=== PATIENT | female | born 1940 | race Caucasian/White ===

== ENCOUNTER 2019-09-28 12:10 | Inpatient (IN) | payer OTHER, BC ==
--- NOTE | 2019-09-28 12:30 | PDOC ---
History of Present Illness - General Chief Complaint: Shortness of Breath Stated Complaint: UNABLE TO CLEAR SECRTIONS Time Seen by Provider: 09/28/19 12:22 History Source: Care Provider, EMS Exam Limitations: Clinical Condition, Dementia - History of Present Illness Initial Comments: 09/28/19 12:29 HPI 79-year-old female with history as of Parkinson's disease and dementia, hypertension, hyperlipidemia, asthma, GERD, constipation, GI bleed, hiatal hernia, PUD, colon polyps, renal cysts, right breast cancer status post right- sided mastectomy, anxiety and depression, osteoarthritis, autoimmune thyroiditis and thyroid nodules presenting with acute respiratory distress 2/2 aspiration.. Patient [facility] with a productive cough, choking and aspiration of oatmeal from this morning. She is also being treated with Augmentin over the past 1 week for URI. history limited due to dementia. Allergies: None Past Medical History/PSH: as above Social history: [facility] Meds: as documented in EMR PMD: Dr Howard Review of systems limited 2/2 dementia, poor historian 09/28/19 15:41 09/28/19 17:39 Past History - Past Medical History Allergies/Adverse Reactions: Allergies Allergy/AdvReac Type Severity Reaction Status Date / Time No Known Allergies Allergy Verified 12/28/17 10:06 Home Medications: Ambulatory Orders Alprazolam 0.5 mg PO BID 07/14/16 Calcium Carbonate/Vitamin D3 [Calcium 500 + Vit D Caplet] 1 each PO BID Cyanocobalamin (Vitamin B-12) [Vitamin B12] 2,500 mcg PO WEEKLY 07/14/16 Pantoprazole Sodium 40 mg PO DAILY 07/14/16 Carbidopa/Levodopa *Cr* 25/100 [Sinemet *Cr* 25/100 -] 2 combo PO TID@0700,1200, 1700 tablet.er 07/15/16 Lipase/Protease/Amylase [Wolfgang Morfin 6,000 Units Capsule] 1 cap PO TIDCM capsule. 07/15/16 Mirtazapine [Remeron -] 30 mg PO HS@2000 tablet 07/15/16 Ascorbic Acid [Vitamin C -] 500 mg PO BID tablet 01/01/18 Cholecalciferol (Vitamin D3) [Vitamin D3 -] 2,000 unit PO DAILY tab 01/01/18 Multivitamins [Multivit ([facility] Formulary)] 1 tab PO DAILY tab 01/01/18 Paroxetine HCl [Paxil -] 60 mg PO DAILY tablet 01/01/18 Petrolatum - White [Vaseline -] 1 applic TP BID applic 01/01/18 Polyethylene Glycol 3350 [Miralax 119 gm Btl -] 17 gm PO DAILY bottle 01/01/18 Quetiapine Fumarate [Seroquel -] 25 mg PO BID tablet 01/01/18 Anemia: No Asthma: No Cancer: Yes (RIGHT BREAST) Cardiac Disorders: No CVA: No COPD: No CHF: No Dementia: Yes Diabetes: No GI Disorders: Yes (REFLUX ESOPHAGITIS, CONSTIPATION, COLONIC PLYP) Disorders: Yes (renal cysts) HTN: Yes Hypercholesterolemia: Yes Kidney Stones: Yes Liver Disease: No Psychiatric Problems: Yes (, PSYCHOTIC DISORDER, LETHARGY) Seizures: No Thyroid Disease: No - Surgical History Abdominal Surgery: Yes Appendectomy: No Cardiac Surgery: No Cholecystectomy: No Lung Surgery: No Neurologic Surgery: No Orthopedic Surgery: No - Psycho Social/Smoking Cessation Hx Smoking History: Former smoker Have you smoked in the past 12 months: No Number of Cigarettes Smoked Daily: 10 If you are a former smoker, when did you quit?: May 2013 Hx Alcohol Use: No Drug/Substance Use Hx: No Substance Use Type: None Hx Substance Use Treatment: No Review of Systems - Review of Systems Able to Perform ROS?: No (Dementia, clinical) *Physical Exam - Physical Exam 09/28/19 15:41 Physical exam General: moderate-severe respiratory distress, demented, thin and frail appearing HEENT: NCAT, PERRL, EOMI, clear conjunctiva, anicteric, dry oropharynx Neck: neck supple, FROM Resp: severe respiratory distress, +bilateral inspiratory and expiratory rhonchi , tachypneic. CVS: +tachycardic, no murmurs, 2+ peripheral pulses throughout, no peripheral edema Abdomen: soft, NTND, no rebound or guarding. Back: nontender, normal inspection and ROM MSK: no edema, GENTILE x4, ROM intact. No clubbing or cyanosis. normal bulk and tone. Extremities: no calf tenderness Neuro: demented, min arousable to stimuli Skin: warm and well perfused, cap refill <2 sec, normal color, no rash or skin discoloration. Procedures - Intubation Time of Intubation: 13:00 Intubation Method: orotracheal Blade used: Mac Tube Size (Fr): 7.5 Medications: Etomidate, Rocuronium Tube position @ lip (cm): 22 Tube position confirmed by: Direct visualization, CO2 detector, Chest x-ray, Breath sounds Breath Sounds after Intubation: equal Intubation Complications: no complications, O2 saturation decreased Post Intubation Xray: Yes Progress/Xray Impression: BMV, NRB, SpO2 best at 75% - RSI done, intubation successful, secretions Heart Score/ECG Review #1 ECG reviewed & interpreted by me at: 12:25 General ECG Interpretation: Sinus Rhythm, Normal Intervals Compared to previous ECG there are: Changes noted 09/28/19 12:30 EKG sinus tachycardia at 135 bpm, no interval abnormalities, narrow QRS, ST and T wave segments and morphology normal. Nonspecific T wave abnormalities rate related. left axis deviation ED Treatment Course - LABORATORY CBC & Chemistry Diagram: 09/28/19 12:45 09/28/19 12:45 - RADIOLOGY Radiology Studies Ordered: Category Date Time Status CHEST X-RAY PORTABLE* [RAD] Stat Radiology 09/28/19 12:24 Ordered Radiograph Interpretation: 09/28/19 15:40 No evidence of pneumothorax or large pleural effusion, multifocal pneumonia on right lung field is noted. ET tube in place above the freddie. no ptx or pleural effusion Medical Decision Making - Critical Care Time Total Critical Care Time (minutes): 60 (acute respiratory failure) Critical Care Statement: The care of this patient involved high complexity decision making to prevent further life threatening deterioration of the patient 's condition and/or to evaluate & treat vital organ system(s) failure or risk of failure. - Medical Decision Making 09/28/19 13:26 Vital Signs Temp Pulse Resp BP Pulse Ox 99.6 F 133 H 29 H 189/80 H 77 L 09/28/19 12:12 09/28/19 12:12 09/28/19 12:12 09/28/19 12:12 09/28/19 12:12 79 YOF presenting with severe acute respiratory distress hypoxic down to 70s on NRB demented, not protecting airway RSI done, copious secretions, suctioned. not candidate for bipap due to AMS and aspiration. hemodynamics optimized, +tachy and hypertensive. spoke with HCP/POA, Martha Melgar- at bedside, ok with emergent procedure, intubation, mech ventilation for respiratory support/airway protection and acute respiratory failure, no full or official documentation of paperwork/ advanced directives available, so will proceed as full code given emergency circumstances. instructions to obtain paperwork for proper documentation and discussion on goals of care/management. intubated with mac 3 blade, direct laryngoscopy, successful 7.5 ETT at 22 cm at the lip vent settings as documented propofol gtt for sedation, hemodynamics allows as pt is hypertensive/tachy from the stimuli. VANC/zosyn for aspiration pneumonia with multifocal opacities/pneumonia on CXR, failed outpatient amoxicillin CXR with right sided pulmonary infiltrates and opacities right>left, ?ARDS; ETT above freddie labs and lytes with +leukocytosis >30K, sputum and blood cultures, infectious workup appropriate and IV abx as documented. communicated with PMD Dr WHITE: Dr Howard, who has come to bedside to admit and eval patient DNR signed in conjunction with PMD with expectations, quality of life, decline/ loss of function and critical condition; no heroic measures, central lines, invasive measures, CPR/shocks, or other aggressive measures. ICU admission to Dr Conde spoke with Dr Oviedo, resident on floor. transfer to ICU bed at [facility] for acute respiratory failure 2/2 aspiration pna, hypoxia. 09/28/19 15:41 09/28/19 17:40 Discharge - Discharge Information Problems reviewed: Yes Clinical Impression/Diagnosis: Acute respiratory failure with hypoxia Aspiration into airway Qualifiers: Encounter type: initial encounter Qualified Code(s): T17.908A - Unspecified foreign body in respiratory tract, part unspecified causing other injury, initial encounter Aspiration pneumonia Qualifiers: Aspiration pneumonia type: unspecified Laterality: right Lung location: unspecified part of lung Qualified Code(s): J69.0 - Pneumonitis due to inhalation of food and vomit Condition: Critical - Admission Yes - Follow up/Referral - Patient Discharge Instructions - Post Discharge Activity
[2019-09-28] MEDS ORDERED: SODIUM CHLORIDE 0.9% 500 ML INFUS.BAG IV ONE ×2 (12:31→13:22)
[2019-09-28] MEDS ORDERED: RAPID SEQUENCE INTUBATION KIT NR ONE (12:48)
[2019-09-28 13:17] LABS: ALBUMIN 3.9 g/dl (3.4-5.0); BILIRUBIN,TOTAL 0.7 mg/dl (0.2-1); CALCIUM 9.4 mg/dl (8.5-10); CREATININE 1.3 mg/dl (0.55-1.3); POTASSIUM 4.1 mmol/L (3.5-5.1); TOT PROT 7.2 g/dl (6.4-8.2)
[2019-09-28] MEDS ORDERED: PIPERACILLIN/TAZOB 4.5 GM 4.5 GM in DEXTROSE 5%-WATER 100 ML IVPB ONE (13:17)
[2019-09-28] MEDS ORDERED: VANCOMYCIN 1,500 MG in DEXTROSE 5%-WATER - 250 ML IVPB ONE (13:17)
[2019-09-28] MEDS ORDERED: ETOMIDATE 40 MG/20 ML VIAL IVPUSH ONE (13:21)
[2019-09-28] MEDS ORDERED: ROCURONIUM BROMIDE 50 MG/5 ML VIAL IVPUSH ONE (13:21)
[2019-09-28] MEDS ORDERED: PROPOFOL 1,000,000 MCG/100 ML VIAL ONE (13:26)
[2019-09-28 13:27] LABS: INR 1.21 (0.82-1.09); PROTHROMBIN TIME (PATIENT) 13.5 SEC (10.2-13.0)
[2019-09-28] MEDS: PROPOFOL 1,000,000 MCG/100 ML VIAL IVPB SCH (13:36)
[2019-09-28] MEDS ORDERED: PIPERACILLIN/TAZOBACTAM 4.5 GM VIAL IVPB ONE (13:38)
[2019-09-28 13:46] LABS: ACTIVATED PTT 28.2 SECONDS (25.2-36.5)
[2019-09-28] MEDS ORDERED: ALBUTEROL SO4 2.5/IPRATROPIUM 0.5 INH SOL 3 ML VIAL.NEB. NEB ONE (13:47)
[2019-09-28 14:02] LABS: HEMATOCRIT 47.5 % (32.4-45.2); MCH 28.8 pg (25.7-33.7); MCHC 31.5 g/dl (32.0-36.0); MEAN CELL VOLUME 91.4 fl (80-96); MEAN PLT VOLUME 10.8 fl (7.5-11.1); PLATELET COUNT 344 K/MM3 (134-434); RDW 16.2 % (11.6-15.6)
--- NOTE | 2019-09-28 14:06 | HP ---
Admitting History and Physical - Admission Chief Complaint: Acute aspiration of oatmeal, acute hypoxemia, acute respirtory failure. History of Present Illness: This 79 yr old w/f with history of Parkinson's disease, dementia, hypertension, depression, anxiety, autoimmune thyroiditis, colonic polyps, and postmenopausal osteoporosis admitted via ER at [facility] with acute respiratory failure, and acute hypoxemia secondary to aspiration of oatmeal this morning. On respirator. 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, Parkinson's Cardiovascular: Yes: HTN, Hyperlipdemia Pulmonary: Yes: Asthma Gastrointestinal: Yes: Constipation, GERD, GI Bleed, Hiatal Hernia, Peptic Ulcer Disease, Other (colonic polyps) Renal/: Yes: Other (Bilateral renal cysts) Heme/Onc: Yes: Cancer (carcinoma in situ of right breast, status post right simple mastectomy) Psych: Yes: Anxiety, Depression Musculoskeletal: Yes: Osteoarthritis Endocrine: Yes: Other (Thyroid nodules, autoimmune thyroiditis) - Past Surgical History Past Surgical History: Yes: Mastectomy (right simple mastectomy) - Advance Directives Advance Directives: Yes: DNR - Smoking History Smoking history: Former smoker Have you smoked in the past 12 months: No Aproximately how many cigarettes per day: 10 If you are a former smoker, when did you quit?: May 2013 - Alcohol/Substance Use Hx Alcohol Use: No History of Substance Use: reports: None - Social History Usual Living Arrangement: Yes: Other (Independent living facility with caregiver ) ADL: Support Services History of Recent Travel: No Home Medications - Allergies Allergies/Adverse Reactions: Allergies Allergy/AdvReac Type Severity Reaction Status Date / Time No Known Allergies Allergy Verified 12/28/17 10:06 - Home Medications Home Medications: Ambulatory Orders Alprazolam 0.5 mg PO BID 07/14/16 Calcium Carbonate/Vitamin D3 [Calcium 500 + Vit D Caplet] 1 each PO BID Cyanocobalamin (Vitamin B-12) [Vitamin B12] 2,500 mcg PO WEEKLY 07/14/16 Pantoprazole Sodium 40 mg PO DAILY 07/14/16 Carbidopa/Levodopa *Cr* 25/100 [Sinemet *Cr* 25/100 -] 2 combo PO TID@0700,1200, 1700 tablet.er 07/15/16 Lipase/Protease/Amylase [Wolfgang Morfin 6,000 Units Capsule] 1 cap PO TIDCM capsule. 07/15/16 Mirtazapine [Remeron -] 30 mg PO HS@2000 tablet 07/15/16 Ascorbic Acid [Vitamin C -] 500 mg PO BID tablet 01/01/18 Cholecalciferol (Vitamin D3) [Vitamin D3 -] 2,000 unit PO DAILY tab 01/01/18 Multivitamins [Multivit ([facility] Formulary)] 1 tab PO DAILY tab 01/01/18 Paroxetine HCl [Paxil -] 60 mg PO DAILY tablet 01/01/18 Petrolatum - White [Vaseline -] 1 applic TP BID applic 01/01/18 Polyethylene Glycol 3350 [Miralax 119 gm Btl -] 17 gm PO DAILY bottle 01/01/18 Quetiapine Fumarate [Seroquel -] 25 mg PO BID tablet 01/01/18 Family Medical History Family History: Unremarkable Review of Systems - Review of Systems Constitutional: reports: Other (Unable to examine, on respirator.) Eyes: reports: Other (unable to examine, on respirator.) HENT: reports: Other (acute respiratory failure, on respirator.) Neck: reports: Other (unable to examine, on respirator.) Cardiovascular: reports: Palpitations Respiratory: reports: Cough, Other (acute respiratory failure secondary to aspiration, on respirator.) Gastrointestinal: reports: Other (unable to examine, on respirator.) Genitourinary: reports: Other (unable to examine, on respirator.) Breasts: reports: Other (status post simple right mastectomy) Musculoskeletal: reports: Other (unable to examine, on respirator.) Integumentary: reports: No Symptoms Neurological: reports: Other (unable to examine, on respirator.) Endocrine: reports: Other (autoimmune thyroiditis) Hematology/Lymphatic: reports: No Symptoms Psychiatric: reports: Anxiety, Depression Physical Examination Vital Signs: Vital Signs Temperature 99.6 F 09/28/19 12:12 Pulse Rate 119 H 09/28/19 13:49 Respiratory Rate 16 09/28/19 13:49 Blood Pressure 144/77 09/28/19 13:49 O2 Sat by Pulse Oximetry (%) 97 09/28/19 13:49 Constitutional: Yes: Severe Distress, Other (acute respiratory failure secondary to aspiration, on respirator.) Eyes: Yes: Conjunctiva Clear, EOM Intact HENT: Yes: Atraumatic, Normocephalic Neck: Yes: Supple, Trachea Midline Cardiovascular: Yes: Regular Rate and Rhythm, Tachycardia Respiratory: Yes: Mechanically Ventilated, Rhonchi Gastrointestinal: Yes: Normal Bowel Sounds, Soft ...Rectal Exam: Yes: Deferred Renal/: Yes: WNL Breast(s): Yes: Other (status post right simple mastectomy) Musculoskeletal: Yes: Other (muscle atrophy of all extremities) Extremities: Yes: Cool Edema: No Peripheral Pulses WNL: Yes Peripheral Pulses: Left Radial: 3+, Right Radial: 3+, Left Doralis Pedis: 2+, Right Dorsalis Pedis: 2+, Left Femoral: 3+, Right Femoral: 3+ Integumentary: Yes: WNL Neurological: Yes: Unresponsive, Other (Unresponsive, on respirator.) ...Motor Strength: LUE (Unable to examine, unresponsive, on respirator.), LLE ( Unable to examine), RUE (Unable to examine), RLE (Unable to examine) Psychiatric: Yes: Other (Unresponsive, acute respiratory failure, on respirator. ) Labs: CBC, BMP 09/28/19 12:45 Imaging - Results EKG: Report Reviewed Other: Report Reviewed (Lab data reviewed.) Problem List - Problems (1) Acute aspiration pneumonia Assessment/Plan: IV Zosyn and Vancomycin. Code(s): J69.0 - PNEUMONITIS DUE TO INHALATION OF FOOD AND VOMIT (2) Acute respiratory failure with hypoxia Assessment/Plan: On respirator. IV Zosyn and Vancomycin. Code(s): J96.01 - ACUTE RESPIRATORY FAILURE WITH HYPOXIA Assessment/Plan Reason for admission and hospital stay: Acute respiratory failure with hypoxia and hypoxemia, acute aspiration pneumonia, on respirator, acute leukocytosis with neutrophilia, DNR, IV fluids, IV Zosyn and Vancomycin, consultations to ID and Pulmonary, transfer to ICU at [facility], discussed clinical condition of the patient with Martha, the health care proxy. Clinical condition critical.
[2019-09-28 14:07] LABS: ADD RBC MORPHOLOGY YES
[2019-09-28 14:09] LABS: WHITE BLOOD COUNT 36.8 K/mm3 (4.0-10.8)
[2019-09-28] MEDS ORDERED: VANCOMYCIN 500 MG VIAL (RESTRICTED TO ID ONLY) ONE (14:17)
[2019-09-28] MEDS ORDERED: VANCOMYCIN 1,000 MG VIAL (RESTRICTED TO ID ONLY) ONE (14:17)
[2019-09-28 14:25] LABS: ANISOCYTOSIS 1+; PLATELET ESTIMATE ADEQUATE
[2019-09-28] MEDS: ALBUTEROL SO4 2.5/IPRATROPIUM 0.5 INH SOL 3 ML VIAL.NEB. NEB SCH ×2 (14:36→14:42)
[2019-09-28] MEDS: D5-1/2NS+20 MEQ KCL - 20 MEQ/1,000 ML INFUS.BAG IV SCH (16:37)
--- NOTE | 2019-09-28 16:50 | CONSULT ---
Consultation: REQUESTING PROVIDER: CONSULT REQUEST: We have been asked to medically evaluate this patient for ( specify). HISTORY OF PRESENT ILLNESS: Patient is sedated and intubated, and therefore unable to provide any history. This is a 79 year old female with PMH significant for Parkinson's disease and dementia, HTN, HLD, asthma, GERD, constipation, GI bleed, hiatal hernia, PUD, colon polyps, renal cysts, Rt breast CA (s/p right-sided mastectomy), OA, autoimmune thyroiditis and thyroid nodules. She presented to [facility]'s ER from [facility] in acute respiratory distress after an episode of aspiration while eating oatmeal this morning. Her oxygen saturation was in the 70s despite being placed on a NRB mask, and she was subsequently intubated. She was initially placed on a ketamine drip due to low BP, but was switched to propofol once she became hemodynamically stable. Of note, she was being treated with Augmentin this past week for an URTI REVIEW OF SYSTEMS: Unable to perform review of systems since patient is intubated and sedated PHYSICAL EXAMINATION Vital Signs - 24 hr 09/28/19 09/28/19 09/28/19 12:12 12:35 13:00 Temperature 99.6 F Pulse Rate 133 H Pulse Rate [ 129 H 132 H Apical] Respiratory 29 H 30 H 30 H Rate Blood Pressure 189/80 H Blood Pressure 178/88 H 168/83 [Right Arm] O2 Sat by Pulse 77 L 76 L 72 L Oximetry (%) 09/28/19 09/28/19 09/28/19 13:40 13:49 14:37 Temperature Pulse Rate Pulse Rate [ 119 H 110 H Apical] Respiratory 14 16 14 Rate Blood Pressure Blood Pressure 144/77 134/66 [Right Arm] O2 Sat by Pulse 97 100 Oximetry (%) 09/28/19 09/28/19 14:52 15:08 Temperature Pulse Rate 104 H Pulse Rate [ 105 H Apical] Respiratory 14 14 Rate Blood Pressure 150/79 Blood Pressure 117/73 [Right Arm] O2 Sat by Pulse 100 Oximetry (%) GENERAL: Sedated, intubated HEAD: Normal with no signs of trauma. EYES: PRINCESS EARS, NOSE, THROAT: Dry mucus membranes LUNGS: Diminished B/L HEART: RRR, no murmurs ABDOMEN: Soft, nontender, not distended LOWER EXTREMITIES: 2x2cm ulcer on right heel 2+ pulses, warm, no edema NEUROLOGICAL: Sedated and intubated SKIN: B/L mastectomy noted, Laboratory Results - last 24 hr 09/28/19 09/28/19 09/28/19 12:45 12:45 12:45 WBC 36.8 H* RBC 5.20 Hgb 15.0 Hct 47.5 H D MCV 91.4 MCH 28.8 MCHC 31.5 L RDW 16.2 H Plt Count 344 MPV 10.8 Absolute Neuts (auto) 31.9 Neutrophils % No Result Required. Neutrophils % (Manual) 86.0 H Band Neutrophils % 4.0 Lymphocytes % No Result Required. Lymphocytes % (Manual) 9.0 Monocytes % (Manual) 1 L Platelet Estimate Adequate Anisocytosis 1+ PT with INR 13.5 H INR 1.21 PTT (Actin FS) 28.2 Sodium 145 Potassium 4.1 Chloride 109 H Carbon Dioxide 23 Anion Gap 13 BUN 30.0 H Creatinine 1.3 Est GFR (CKD-EPI)AfAm 45.50 Est GFR (CKD-EPI)NonAf 39.26 Random Glucose 222 H Calcium 9.4 Total Bilirubin 0.7 AST 29 ALT 9 L Alkaline Phosphatase 82 Total Protein 7.2 Albumin 3.9 Active Medications Generic Name Dose Route Start Last Admin Trade Name Freq PRN Reason Stop Dose Admin Propofol 1,000,000 mcg in 100 mls @ 1.497 mls/hr 09/28/19 13:30 09/28/19 13: 36 Diprivan - IVPB 5 mcg/kg/min TITR MAGDIEL 1.497 mls/hr Administration Protocol 5 MCG/KG/MIN Potassium Chloride/Dextrose/Sod Cl 20 meq in 1,000 mls @ 83 mls/hr 09/28/19 15 :00 D5-1/2ns+20 Meq Kcl - IV ASDIR MAGDIEL ASSESSMENT/PLAN: 79F with PMH of Parkinson's dementia, HTN, HLD, asthma, PUD, colon polyps, renal cysts, Rt breast CA (s/p right-sided mastectomy), OA, autoimmune thyroiditis. Presented to [facility]'s ER from [facility] in acute hypoxic respiratory failure 2/2 aspiration, was subsequently intubated prior to arrival, and was admitted 09/28 for suspected aspiration pneumonia. 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 Alexander) #Renal - Cr 1.3 - Kramer inserted #ID - Aspiration pneumonia with acute hypoxic respiratory failure - WBC 36.8, temp 99.6 - Vanc 1.5gm/Zosyn given in ER, started on Zosyn Q8H - Has been on Augmentin for URTI for 1 week - Sputum, blood cx sent - Consult placed (Dr. Hagan) #Heme - Hg 15.0 - PT with INR 13.5 #FEN - D5 in 1/2 N/S with 10mEQ K+ - Cl 109 #Prophylaxis - #Euniceo - Martha Melgar is HCP, sent patient's living will which was placed in her file, consent for central line obtained - ICU monitoring - We will continue to follow the patient. Thank you for this consultative opportunity. ATTENDING PHYSICIAN STATEMENT I saw and evaluated the patient. I reviewed the resident's note and discussed the case with the resident. I agree with the resident's findings and plan as documented. SUBJECTIVE: OBJECTIVE: ASSESSMENT AND PLAN:
[2019-09-28 17:24] LABS: ARTERIAL BLOOD GAS PCO2 47.8 mmHg (35-45); ARTERIAL BLOOD GAS PO2 57.3 mmHg (80-100); ARTERIAL BLOOD GAS pH 7.26 (7.35-7.45)
[2019-09-28] MEDS ORDERED: PNEUMOC 13-VAL CONJ-DIP CRM/PF 0.5 ML DISP.SYRIN IM ONE (17:30)
[2019-09-28] MEDS ORDERED: FLU VACCINE QUAD 60 MCG/0.5 ML (MDV 19-20) IM ONE (17:30)
[2019-09-28] MEDS ORDERED: PIPERACILLIN/TAZOB 3.375 GM 3.375 GM in DEXTROSE 5%-WATER - 50 ML IVPB SCH (18:00)
[2019-09-28] MEDS ORDERED: MIDAZOLAM 100 MG in SODIUM CHLORIDE 100 ML IVPB SCH (19:15)
[2019-09-28] MEDS ORDERED: MIDAZOLAM IN 0.9 % SOD.CHLORID 1 MG/1 ML PLAST..BAG ONE (20:13)
[2019-09-28] MEDS ORDERED: DEXTROSE 5%-WATER - 50 ML IVPB ONE (20:59)
[2019-09-28] MEDS ORDERED: PIPERACILLIN/TAZOBACTAM 3.375 GM VIAL IVPB ONE (20:59)
[2019-09-28 21:25] LABS: BASO % 0.2 % (0-2.0); EOS % 0.3 % (0-4.5); HEMATOCRIT 39.9 % (32.4-45.2); HEMOGLOBIN 12.4 GM/dL (10.7-15.3); LYMPH % 5.6 % (8-40); MCH 28.6 pg (25.7-33.7); MCHC 31.2 g/dl (32.0-36.0); MEAN CELL VOLUME 91.6 fl (80-96); MEAN PLT VOLUME 9.6 fl (7.5-11.1); MONO % 4.4 % (3.8-10.2); NEUT % 89.5 % (42.8-82.8); PLATELET COUNT 207 K/MM3 (134-434); RBC 4.35 M/mm3 (3.60-5.2); RDW 17.1 % (11.6-15.6); WHITE BLOOD COUNT 20.3 K/mm3 (4.0-10.0)
[2019-09-28] MEDS: PIPERACILLIN/TAZOB 3.375 GM 3.375 GM in DEXTROSE 5%-WATER - 50 ML IVPB SCH (22:08)
[2019-09-28] MEDS: HEPARIN NA (PORCINE) 5,000 UNITS/ML 1ML VIAL SQ SCH (22:17)
[2019-09-28] MEDS: MUPIROCIN 2% TOPICAL OINTMENT FOR DECOLONIZATION NS SCH (22:18)
[2019-09-28] MEDS: CHLORHEXIDINE GLUCONATE 4% CLEANSER FOR DECOLONIZATION TP SCH (22:18)
[2019-09-28] MEDS ORDERED: SODIUM CHLORIDE 500 ML IV STA ×2 (23:32→23:51)
[2019-09-28 23:48] LABS: PLATELET ESTIMATE NORMAL
[2019-09-29] MEDS: PIPERACILLIN/TAZOB 3.375 GM 3.375 GM in DEXTROSE 5%-WATER - 50 ML IVPB SCH ×2 (02:53→16:59)
[2019-09-29] MEDS ORDERED: DEXTROSE 5%-WATER - 50 ML IVPB ONE ×2 (06:36→16:27)
[2019-09-29] MEDS ORDERED: PIPERACILLIN/TAZOBACTAM 3.375 GM VIAL IVPB ONE ×2 (06:36→16:27)
[2019-09-29] MEDS: HEPARIN NA (PORCINE) 5,000 UNITS/ML 1ML VIAL SQ SCH ×3 (06:38→21:43)
[2019-09-29] MEDS ORDERED: PIPERACILLIN/TAZOB 3.375 GM 3.375 GM in DEXTROSE 5%-WATER - 50 ML IVPB SCH ×2 (06:45→18:00)
[2019-09-29 07:46] LABS: BASO % 0.1 % (0-2.0); EOS % 0.7 % (0-4.5); HEMATOCRIT 38.8 % (32.4-45.2); HEMOGLOBIN 12.2 GM/dL (10.7-15.3); LYMPH % 4.4 % (8-40); MCH 28.9 pg (25.7-33.7); MCHC 31.4 g/dl (32.0-36.0); MEAN CELL VOLUME 91.9 fl (80-96); MEAN PLT VOLUME 9.7 fl (7.5-11.1); MONO % 4.8 % (3.8-10.2); PLATELET COUNT 157 K/MM3 (134-434); RBC 4.23 M/mm3 (3.60-5.2); RDW 17.4 % (11.6-15.6)
[2019-09-29 08:25] LABS: ALBUMIN 2.7 g/dl (3.4-5.0); BILIRUBIN,TOTAL 0.4 mg/dL (0.2-1); BLOOD UREA NITROGEN 30.1 mg/dL (7-18); CALCIUM 8.7 mg/dL (8.5-10.1); CREATININE 1.3 mg/dL (0.55-1.3); POTASSIUM 4.3 mmol/L (3.5-5.1); TOT PROT 5.9 g/dl (6.4-8.2)
--- NOTE | 2019-09-29 08:41 | PN ---
Physical Exam: SUBJECTIVE: Patient seen and examined on AM ICU rounds. Intubated and sedated. 7 mcg Midazolam. Vent on A/C, 14 / 400 / 50% / 8 / 60. No acute overnight events per nursing. Received 1L IVF overnight. Febrile this AM, given 1g IV tylenol. OBJECTIVE: Vital Signs Period Temp Pulse Resp BP Sys/Christy Pulse Ox Last 24 Hr 97.2 F-99.6 F 72-133 14-34 94-189/58-88 72-100 GENERAL: Sedated, intubated, no acute distress. HEAD: Normal with no signs of trauma, dry MM, trachea midline, intubated. LUNGS: Diminished B/L, vent sounds, no crackles appreciated. HEART: Difficult to auscultate given vent sounds, RRR, no murmurs. ABDOMEN: Soft, non-tender, non-distended. LOWER EXTREMITIES: 2x2cm ulcer on right heel 2+ pulses, warm, no edema, SCDs in place. NEUROLOGICAL: Sedated and intubated. SKIN: B/L mastectomy noted, warm, dry, no rashes appreciated. Laboratory Results - last 24 hr 09/28/19 09/28/19 09/28/19 12:45 12:45 12:45 WBC 36.8 H* RBC 5.20 Hgb 15.0 Hct 47.5 H D MCV 91.4 MCH 28.8 MCHC 31.5 L RDW 16.2 H Plt Count 344 MPV 10.8 Absolute Neuts (auto) 31.9 Neutrophils % No Result Required. Neutrophils % (Manual) 86.0 H Band Neutrophils % 4.0 Lymphocytes % No Result Required. Lymphocytes % (Manual) 9.0 Monocytes % Monocytes % (Manual) 1 L Eosinophils % Eosinophils % (Manual) Basophils % Basophils % (Manual) Myelocytes % (Man) Promyelocytes % (Man) Blast Cells % (Manual) Nucleated RBC % Metamyelocytes Platelet Estimate Adequate Anisocytosis 1+ PT with INR 13.5 H INR 1.21 PTT (Actin FS) 28.2 Anticoagulation Therapy Puncture Site ABG pH ABG pCO2 at Pt Temp ABG pO2 at Pt Temp ABG HCO3 ABG O2 Sat (Measured) ABG O2 Content ABG Base Excess Bronson Test O2 Delivery Device Oxygen Flow Rate Vent Mode Vent Rate Mechanical Rate Pressure Support Vent Sodium 145 Potassium 4.1 Chloride 109 H Carbon Dioxide 23 Anion Gap 13 BUN 30.0 H Creatinine 1.3 Est GFR (CKD-EPI)AfAm 45.50 Est GFR (CKD-EPI)NonAf 39.26 Random Glucose 222 H Hemoglobin A1c % Lactic Acid Calcium 9.4 Total Bilirubin 0.7 AST 29 ALT 9 L Alkaline Phosphatase 82 Total Protein 7.2 Albumin 3.9 Influenza A (Rapid) Influenza B (Rapid) 09/28/19 09/28/19 09/28/19 14:26 17:06 20:30 WBC 20.3 H RBC 4.35 Hgb 12.4 Hct 39.9 MCV 91.6 MCH 28.6 MCHC 31.2 L RDW 17.1 H Plt Count 207 MPV 9.6 Absolute Neuts (auto) 18.2 H Neutrophils % 89.5 H D Neutrophils % (Manual) 89.8 H Band Neutrophils % 0.0 Lymphocytes % 5.6 L D Lymphocytes % (Manual) 4.1 L Monocytes % 4.4 Monocytes % (Manual) 5 Eosinophils % 0.3 D Eosinophils % (Manual) 0.0 Basophils % 0.2 Basophils % (Manual) 0.0 Myelocytes % (Man) 0 Promyelocytes % (Man) 0 Blast Cells % (Manual) 0 Nucleated RBC % 0 Metamyelocytes 0 Platelet Estimate Normal Anisocytosis PT with INR INR PTT (Actin FS) Anticoagulation Therapy No Result Required. Puncture Site No Result Required. ABG pH 7.26 L ABG pCO2 at Pt Temp 47.8 H ABG pO2 at Pt Temp 57.3 L ABG HCO3 20.6 L ABG O2 Sat (Measured) 86.0 L ABG O2 Content 15.0 ABG Base Excess -6.0 L Bronson Test No Result Required. O2 Delivery Device No Result Required. Oxygen Flow Rate No Result Required. Vent Mode No Result Required. Vent Rate No Result Required. Mechanical Rate No Result Required. Pressure Support Vent No Result Required. Sodium Potassium Chloride Carbon Dioxide Anion Gap BUN Creatinine Est GFR (CKD-EPI)AfAm Est GFR (CKD-EPI)NonAf Random Glucose Hemoglobin A1c % Lactic Acid Calcium Total Bilirubin AST ALT Alkaline Phosphatase Total Protein Albumin Influenza A (Rapid) Negative Influenza B (Rapid) Negative 09/28/19 09/29/19 09/29/19 21:00 05:40 05:40 WBC 19.0 H RBC 4.23 Hgb 12.2 Hct 38.8 MCV 91.9 MCH 28.9 MCHC 31.4 L RDW 17.4 H Plt Count 157 D MPV 9.7 Absolute Neuts (auto) 17.1 H Neutrophils % 90.0 H Neutrophils % (Manual) Band Neutrophils % Lymphocytes % 4.4 L D Lymphocytes % (Manual) Monocytes % 4.8 Monocytes % (Manual) Eosinophils % 0.7 D Eosinophils % (Manual) Basophils % 0.1 Basophils % (Manual) Myelocytes % (Man) Promyelocytes % (Man) Blast Cells % (Manual) Nucleated RBC % 0 Metamyelocytes Platelet Estimate Anisocytosis PT with INR INR PTT (Actin FS) Anticoagulation Therapy Puncture Site ABG pH ABG pCO2 at Pt Temp ABG pO2 at Pt Temp ABG HCO3 ABG O2 Sat (Measured) ABG O2 Content ABG Base Excess Bronson Test O2 Delivery Device Oxygen Flow Rate Vent Mode Vent Rate Mechanical Rate Pressure Support Vent Sodium 150 H Potassium 4.3 Chloride 117 H Carbon Dioxide 22 Anion Gap 11 BUN 30.1 H Creatinine 1.3 Est GFR (CKD-EPI)AfAm 45.50 Est GFR (CKD-EPI)NonAf 39.26 Random Glucose 94 Hemoglobin A1c % Lactic Acid 4.4 H* Calcium 8.7 Total Bilirubin 0.4 AST 29 ALT 28 Alkaline Phosphatase 81 Total Protein 5.9 L Albumin 2.7 L Influenza A (Rapid) Influenza B (Rapid) 09/29/19 09/29/19 05:40 05:40 WBC RBC Hgb Hct MCV MCH MCHC RDW Plt Count MPV Absolute Neuts (auto) Neutrophils % Neutrophils % (Manual) Band Neutrophils % Lymphocytes % Lymphocytes % (Manual) Monocytes % Monocytes % (Manual) Eosinophils % Eosinophils % (Manual) Basophils % Basophils % (Manual) Myelocytes % (Man) Promyelocytes % (Man) Blast Cells % (Manual) Nucleated RBC % Metamyelocytes Platelet Estimate Anisocytosis PT with INR INR PTT (Actin FS) Anticoagulation Therapy Puncture Site ABG pH ABG pCO2 at Pt Temp ABG pO2 at Pt Temp ABG HCO3 ABG O2 Sat (Measured) ABG O2 Content ABG Base Excess Bronson Test O2 Delivery Device Oxygen Flow Rate Vent Mode Vent Rate Mechanical Rate Pressure Support Vent Sodium Potassium Chloride Carbon Dioxide Anion Gap BUN Creatinine Est GFR (CKD-EPI)AfAm Est GFR (CKD-EPI)NonAf Random Glucose Hemoglobin A1c % 5.5 Lactic Acid 3.8 H* Calcium Total Bilirubin AST ALT Alkaline Phosphatase Total Protein Albumin Influenza A (Rapid) Influenza B (Rapid) Active Medications Generic Name Dose Route Start Last Admin Trade Name Christianq PRN Reason Stop Dose Admin Chlorhexidine Gluconate 1 applic 09/28/19 22:00 09/28/19 22:18 Hibiclens For Decolonization - TP 1 applic HS MAGDIEL Administration Heparin Sodium (Porcine) 5,000 unit 09/28/19 22:00 09/29/19 06:38 Heparin - SQ 5,000 unit TID MAGDIEL Administration Propofol 1,000,000 mcg in 100 mls @ 1.497 mls/hr 09/28/19 13:30 09/28/19 23: 30 Diprivan - IVPB 0 mcg/kg/min TITR MAGDIEL 0 mls/hr Titration Protocol 5 MCG/KG/MIN Potassium Chloride/Dextrose/Sod Cl 20 meq in 1,000 mls @ 83 mls/hr 09/28/19 15 :00 09/28/19 16:37 D5-1/2ns+20 Meq Kcl - IV 83 mls/hr ASDIR MAGDIEL Administration Piperacillin Sod/Tazobactam 50 mls @ 100 mls/hr 09/29/19 18:00 Sod 3.375 gm/ Dextrose IVPB Q8H-IV MAGDIEL Protocol Midazolam HCl 100 mg/ Sodium 100 mls @ 1 mls/hr 09/28/19 19:15 09/29/19 04:00 Chloride IVPB 09/29/19 19:14 7 mg/hr TITR MAGDIEL 7 mls/hr Titration Protocol 1 MG/HR Piperacillin Sod/Tazobactam 50 mls @ 100 mls/hr 09/29/19 06:45 09/29/19 06:38 Sod 3.375 gm/ Dextrose IVPB 09/29/19 15:14 100 mls/hr Q8H MAGDIEL Administration Protocol Mupirocin 1 applic 09/28/19 22:00 09/28/19 22:18 Bactroban Ointment (For Decolonization) - NS 10/03/19 21:59 1 applic BID MAGDIEL Administration ASSESSMENT/PLAN: 79F with PMH of Parkinson's dementia, HTN, HLD, asthma, PUD, colon polyps, renal cysts, Rt breast CA (s/p right-sided mastectomy), OA, autoimmune thyroiditis. [facility] in acute hypoxic respiratory failure 2/2 aspiration, was subsequently intubated prior to arrival, and was admitted 09/28 for suspected aspiration pneumonia. Remains intubated and sedate. 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 - Intubated and sedated due to acute hypoxic respiratory failure - S/p propofol, intially placed on ketamine due to hypotension - Currently on midazolam drip, will titragte down - Adding fentanyl drip - On Sinamet, Mirtazapine #CV: HTN, HLD - Hemodynamically stable, BP 130s/80s - Maintain MAPs >65 - Monitor vitals / CBC #Pulm: Acute hypoxic respiratory failure 2/2 aspiration, hx asthma - CXR: Rt sided pulmonary infiltrates and opacities right>left, ETT noted above freddie - Carboxyhemoglobin and methemoglobin levels ordered - Currently on A/C vent with O2Sat in mid 90s, will titrate settings as appropriate - Maintain O2Sat >92% - Duonebs - Medrol 40 daily - Consult placed (Dr. Alexander) #Renal: Renal cysts - Trend Cr - Continue Rkamer - Monitor I&Os - 1L IVF bolus o/n #ID - Aspiration pneumonia with acute hypoxic respiratory failure - WBC 36.8 > 22.3 > 19.0, afebrile - Vanc 1.5gm/Zosyn given in ER, started on Zosyn Q8H - Has been on Augmentin for URI for 1 week - F/u Sputum Cx: NGTD - F/u Blood Cx: NGTD - Lact downtrending 4.4 > 3.8, will trend - Consult placed (Dr. Hagan) #Heme/Onc: rt breast ca s/p masectomy - Hg 15.0 > 12.2 - PT with INR 13.5 #FEN/GI: PUD, colon polyps - D5 in 1/2 N/S with 10mEQ K+ - Cl 109 - NPO while mechanically ventilated - Start tube feeds tomorrow if still intubated #PPX - SCDs - PPI tomorrow if still NPO #Sunita Melgar is HCP, sent patient's living will which was placed in her file, consent for central line obtained - Continue ICU monitoring Visit type - Emergency Visit Emergency Visit: Yes ED Registration Date: 09/28/19 Care time: The patient presented to the Emergency Department on the above date and was hospitalized for further evaluation of their emergent condition. - New Patient This patient is new to me today: Yes Date on this admission: 09/29/19 - Critical Care Critical Care patient: Yes Total Critical Care Time (in minutes): 36 Critical Care Statement: The care of this patient involved high complexity decision making to prevent further life threatening deterioration of the patient 's condition and/or to evaluate & treat vital organ system(s) failure or risk of failure. ATTENDING PHYSICIAN STATEMENT I saw and evaluated the patient. I reviewed the resident's note and discussed the case with the resident. I agree with the resident's findings and plan as documented. SUBJECTIVE: OBJECTIVE: ASSESSMENT AND PLAN:
[2019-09-29] MEDS ORDERED: ACETAMINOPHEN 1000 MG/100 ML VIAL (NON FORMULARY) IVPB ONE (09:11)
[2019-09-29] MEDS: MUPIROCIN 2% TOPICAL OINTMENT FOR DECOLONIZATION NS SCH ×2 (09:29→21:51)
[2019-09-29] MEDS ORDERED: MIDAZOLAM IN 0.9 % SOD.CHLORID 1 MG/1 ML PLAST..BAG ONE (10:29)
[2019-09-29] MEDS ORDERED: ALBUTEROL SO4 0.083% IH SOL 2.5 MG/3 ML VIAL.NEB. NEB PRN (10:51)
[2019-09-29] MEDS: methylPREDNISolone NA SUCC 40 MG/1 ML VIAL IVPUSH SCH (11:02)
--- NOTE | 2019-09-29 11:22 | PN ---
Progress Note (short form) - Note Progress Note: ID CONSULT DICTATED PROBABLE ASP PNEUMONIA RESPIRATORY FAILURE R/O SEPSIS SECONDARY TO LUNG SOURCE MARKED LEUKOCYTOSIS LACTIC ACIDOSIS AZOTEMIA AWAIT C/S VENTILATORY SUPPORT EMPIRIC ZOSYN CRITICAL CARE TIME 35MIN
--- NOTE | 2019-09-29 11:59 | CONS ---
INFECTIOUS DISEASE CONSULTATION DATE OF CONSULTATION: DATE OF DICTATION: 09/29/2019 The patient is a 79-year-old female who is evaluated for probable aspiration pneumonia and sepsis. History was obtained from the chart as well as an aide who was present at the time of the examination. The patient is presently intubated and sedated in the intensive care unit. According to the notes and the aide, the patient was at her nursing facility when she apparently had a choking episode while eating oatmeal. The aide had also reported that over the past several days she has had increased pulmonary secretions and had been treated with a course of Augmentin. The patient presented to the emergency room where she required intubation. She was noted to be short of breath and hypoxemic. Cultures were obtained. She was empirically treated with vancomycin and Zosyn. Chest x-ray showed some patchy infiltrate, right upper lobe and right lower lobe. At the present time, she is intubated. She is unable to offer any additional details. No reports of any recent febrile illness. She has had a cough with difficulty mobilizing secretions. She lives in a nursing facility and is dependent in activities of daily living. She has urinary incontinence and has had a blister on her left heel. No recent hospitalizations. No documented history of resistant bacterial pathogens. PAST MEDICAL HISTORY: Positive for parkinsonism, dementia, hypertension, hyperlipidemia, asthma, gastroesophageal reflux, peptic ulcer disease, history of breast cancer. PAST SURGICAL HISTORY: Status post right mastectomy. ALLERGIES: No known allergies. MEDICATIONS: Include Tylenol, albuterol, Solu-Medrol, Zosyn, vancomycin. SOCIAL HISTORY: She lives in a nursing facility. She requires assistance in activities of daily living. She is a former smoker. No recent travel. No recent hospitalizations. SYSTEMS REVIEW: Unable to obtain secondary to her present mental status. LABORATORY DATA: White count on admission 36,000 with left shift, hematocrit 38.8, platelets 157. Creatinine 1.3. Lactic acid 3.8. Flu swab negative. Cultures are pending. Chest x-ray as mentioned. PHYSICAL EXAMINATION: General: She is sedated on the ventilator. Her breathing is non-labored. Vital Signs: T-max 100.3; blood pressure 173/35; pulse 95, regular; respirations 30 per minute. HEENT: Sclerae anicteric. Patient is orally intubated. Heart: Sounds S1, S2. Lungs: Air entry bilaterally. Abdomen: Soft. No tenderness elicited. Extremities: Negative for edema. There is a superficial ulceration present on the left heel, does not appear to be infected. IMPRESSION: 1. Probable aspiration pneumonia. 2. Acute respiratory failure. 3. Rule out sepsis secondary to lung source. 4. Marked leukocytosis. 5. Lactic acidosis. 6. Azotemia. 7. History of parkinsonism and dementia. Await cultures. Obtain suction sputum C&S. Empiric antibiotic coverage for aspiration pneumonia in this patient in a fpc facility with Zosyn 3.375 g IV piggyback every 8 hours. Ventilatory support. Will follow. Thank you for the kind referral. CRITICAL CARE TIME SPENT: Thirty-five minutes. TAY BELLAMY M.D. [id number]
--- NOTE | 2019-09-29 12:10 | PN ---
Teaching Attending Note Name of Resident: Gaudencio Saunders ATTENDING PHYSICIAN STATEMENT I saw and evaluated the patient. I reviewed the resident's note and discussed the case with the resident. I agree with the resident's findings and plan as documented. SUBJECTIVE: Pt seen and examined in the ICU. Remains intubated, sedated on volume assist control with 50% FiO2, PEEP 8. No pressors. OBJECTIVE: Vital Signs Period Temp Pulse Resp BP Sys/Christy Pulse Ox Last 24 Hr 97.2 F-100.3 F 72-133 14-34 94-189/35-88 72-100 Intake & Output 09/26/19 09/27/19 09/28/19 09/29/19 23:59 23:59 23:59 23:59 Intake Total 2198 1910 Output Total 10 450 Balance 2188 1460 Weight 54.885 kg Gen: intubated, sedated Heart: RRR Lung: scattered rhonchi Abd: soft, nontender Ext: no edema CBC, BMP 09/29/19 05:40 09/29/19 05:40 Active Medications Albuterol Sulfate (Ventolin 0.083% Nebulizer Soln -) 1 amp NEB Q4H PRN PRN Reason: SHORT OF BREATH/WHEEZING Albuterol/Ipratropium (Duoneb -) 1 amp NEB RQID MAGDIEL Chlorhexidine Gluconate (Hibiclens For Decolonization -) 1 applic TP HS MAGDIEL Last Admin: 09/28/19 22:18 Dose: 1 applic Heparin Sodium (Porcine) (Heparin -) 5,000 unit SQ TID MAGDILE Last Admin: 09/29/19 06:38 Dose: 5,000 unit Propofol (Diprivan -) 1,000,000 mcg in 100 mls @ 1.497 mls/hr IVPB TITR MAGDIEL; Protocol Last Titration: 09/28/19 23:30 Dose: 0 mcg/kg/min, 0 mls/hr Potassium Chloride/Dextrose/Sod Cl (D5-1/2ns+20 Meq Kcl -) 20 meq in 1,000 mls @ 83 mls/hr IV ASDIR MAGDIEL Last Admin: 09/28/19 16:37 Dose: 83 mls/hr Midazolam HCl 100 mg/ Sodium (Chloride) 100 mls @ 1 mls/hr IVPB TITR MAGDIEL; Protocol Stop: 09/29/19 19:14 Last Titration: 09/29/19 04:00 Dose: 7 mg/hr, 7 mls/hr Piperacillin Sod/Tazobactam (Sod 3.375 gm/ Dextrose) 50 mls @ 100 mls/hr IVPB Q8H-IV MAGDIEL; Protocol Fentanyl 500 mcg/ Dextrose 100 mls @ 10 mls/hr IVPB TITR MAGDIEL; Protocol Stop: 09/30/19 11:44 Methylprednisolone Sodium Succinate (Solu-Medrol -) 40 mg IVPUSH DAILY MAGDIEL Last Admin: 09/29/19 11:02 Dose: 40 mg Mupirocin (Bactroban Ointment (For Decolonization) -) 1 applic NS BID MAGDIEL Stop: 10/03/19 21:59 Last Admin: 09/29/19 09:29 Dose: 1 applic ASSESSMENT AND PLAN: Acute Hypoxic and Hypercapneic Respiratory Failure Pneumonia likely Aspiration Severe Sepsis Lactic Acidosis Asthma HTN Hyperlipidemia Parkinsons Dementia h/o Breast Ca - continue antibiotics - f/u cultures - empiric medrol - inhaled bronchodilators - taper FiO2, PEEP to keep SpO2 >90% - IVF - monitor urine output, creatinine - trend lactate - lighten sedation in AM to assess mental status - spontaneous breathing trials as tolerated when mental status improved - enteral feeds if unable to extubate - DVT/GI prophylaxis - continue ICU monitoring critical care time spent in reviewing chart, evaluating patient and formulating plan 35 min
[2019-09-29] MEDS: ALBUTEROL SO4 2.5/IPRATROPIUM 0.5 INH SOL 3 ML VIAL.NEB. NEB SCH ×3 (12:34→20:30)
[2019-09-29] MEDS ORDERED: fentaNYL CITRATE 250 MCG/5 ML VIAL ONE ×2 (12:46→21:42)
--- NOTE | 2019-09-29 12:50 | PN ---
Progress Note, Physician Chief Complaint: Intubated and sedated, on volume assist control 50% Fio2. History of Present Illness: This 79 yr old w/f with history of dementia, Parkinson's disease, hypertension, autoimmune thyroiditis, depression, anxiety, cancer of the breast admitted via ER at [facility] on 09/29/19 with acute respiratory failure with hypoxia and hypercapnia, acute aspiration pneumonia of the right upper and lower lobes, sepsis, and acute leukocytosis with neutrophilia. - Current Medication List Current Medications: Active Medications Albuterol Sulfate (Ventolin 0.083% Nebulizer Soln -) 1 amp NEB Q4H PRN PRN Reason: SHORT OF BREATH/WHEEZING Albuterol/Ipratropium (Duoneb -) 1 amp NEB RQID MAGDIEL Last Admin: 09/29/19 12:34 Dose: 1 amp Chlorhexidine Gluconate (Hibiclens For Decolonization -) 1 applic TP HS MAGDIEL Last Admin: 09/28/19 22:18 Dose: 1 applic Heparin Sodium (Porcine) (Heparin -) 5,000 unit SQ TID MAGDIEL Last Admin: 09/29/19 06:38 Dose: 5,000 unit Propofol (Diprivan -) 1,000,000 mcg in 100 mls @ 1.497 mls/hr IVPB TITR MAGDIEL; Protocol Last Titration: 09/28/19 23:30 Dose: 0 mcg/kg/min, 0 mls/hr Potassium Chloride/Dextrose/Sod Cl (D5-1/2ns+20 Meq Kcl -) 20 meq in 1,000 mls @ 83 mls/hr IV ASDIR MAGDIEL Last Admin: 09/28/19 16:37 Dose: 83 mls/hr Midazolam HCl 100 mg/ Sodium (Chloride) 100 mls @ 1 mls/hr IVPB TITR MAGDIEL; Protocol Stop: 09/29/19 19:14 Last Titration: 09/29/19 04:00 Dose: 7 mg/hr, 7 mls/hr Piperacillin Sod/Tazobactam (Sod 3.375 gm/ Dextrose) 50 mls @ 100 mls/hr IVPB Q8H-IV MAGDIEL; Protocol Fentanyl 500 mcg/ Dextrose 100 mls @ 10 mls/hr IVPB TITR MAGDIEL; Protocol Stop: 09/30/19 11:44 Methylprednisolone Sodium Succinate (Solu-Medrol -) 40 mg IVPUSH DAILY MAGDIEL Last Admin: 09/29/19 11:02 Dose: 40 mg Mupirocin (Bactroban Ointment (For Decolonization) -) 1 applic NS BID [facility] Stop: 10/03/19 21:59 Last Admin: 09/29/19 09:29 Dose: 1 applic - Objective Vital Signs: Vital Signs Temperature 100.3 F H 09/29/19 10:00 Pulse Rate 95 H 09/29/19 10:00 Respiratory Rate 22 H 09/29/19 12:33 Blood Pressure 173/35 H 09/29/19 10:00 O2 Sat by Pulse Oximetry (%) 95 09/29/19 09:00 Constitutional: Yes: Other (sedated and intubated.) Eyes: Yes: Conjunctiva Clear, EOM Intact HENT: Yes: Atraumatic, Normocephalic Neck: Yes: Supple, Trachea Midline Cardiovascular: Yes: Regular Rate and Rhythm Respiratory: Yes: Diminished, Mechanically Ventilated Gastrointestinal: Yes: Normal Bowel Sounds, Soft ...Rectal Exam: Yes: Deferred Genitourinary: Yes: Incontinence Breast(s): Yes: Other (status post simple right mastectomy) Musculoskeletal: Yes: Other (unable to examine) Extremities: Yes: Cool Edema: No Peripheral Pulses WNL: Yes Peripheral Pulses: Left Radial: 3+, Right Radial: 3+, Left Doralis Pedis: 2+, Right Dorsalis Pedis: 2+, Left Femoral: 3+, Right Femoral: 3+ Integumentary: Yes: Pressure Ulcer (left heel) Neurological: Yes: Other (sedated and intubated.) ...Motor Strength: LUE (unable to examine, sedated and intubated.) Labs: CBC, BMP 09/29/19 05:40 09/29/19 05:40 INR, PTT INR 1.21 (0.82-1.09) 09/28/19 12:45 - ....Imaging Chest X-ray: Report Reviewed Other: Report Reviewed (Lab data reviewed, ID and Pulmonary consultations read and appreciated.) Problem List - Problems (1) Acute aspiration pneumonia Assessment/Plan: IV Zosyn, Vancomycin, and Solumedrol. Code(s): J69.0 - PNEUMONITIS DUE TO INHALATION OF FOOD AND VOMIT (2) Acute respiratory failure with hypoxia Assessment/Plan: Intubated and sedated on volume assist control 50% FiO2. IV Zosyn, Vancomycin, and Solumedrol. Code(s): J96.01 - ACUTE RESPIRATORY FAILURE WITH HYPOXIA (3) Sepsis Assessment/Plan: IV fluids, Zosyn, Vancomycin, and Solumedrol. Code(s): A41.9 - SEPSIS, UNSPECIFIED ORGANISM Assessment/Plan Plan: Acute respiratory failure with hypoxia and hypercapnia, acute aspiration pneumonia of the right upper and lower lobes, acute sepsis, acute leukocytosis with neutrophilia, lactic acidosis, IV fluids, IV Zosyn, Vancomycin, and Solumedrol, DVT prophylaxis, albuterol inhalation, parenteral feedings if early extubation is not possible. Discussed clinical condition of the patient with
[2019-09-29] MEDS: FENTANYL INJECTION 500 MCG in DEXTROSE 5%-WATER - 90 ML IVPB SCH ×2 (13:04→21:43)
--- NOTE | 2019-09-29 14:45 | EKG ---
Test Reason : Blood Pressure : / mmHG Vent. Rate : 135 BPM Atrial Rate : 135 BPM P-R Int : 156 ms QRS Dur : 108 ms QT Int : 272 ms P-R-T Axes : 066 -30 114 degrees QTc Int : 408 ms SINUS TACHYCARDIA POSSIBLE LEFT ATRIAL ENLARGEMENT LEFT AXIS DEVIATION ABNORMAL ECG WHEN COMPARED WITH ECG OF 28-DEC-2017 14:54, FUSION COMPLEXES ARE NO LONGER PRESENT T WAVE INVERSION NOW EVIDENT IN LATERAL LEADS Confirmed by SARAI DYER, JACOBO ([id number]) on 09/29/2019 2:45:17 PM Referred By: ABY ROPER Confirmed By:JACOBO MOON MD
[2019-09-29] MEDS: D5-1/2NS+20 MEQ KCL - 20 MEQ/1,000 ML INFUS.BAG IV SCH (16:00)
[2019-09-29] MEDS: CHLORHEXIDINE GLUCONATE 4% CLEANSER FOR DECOLONIZATION TP SCH (21:51)
[2019-09-30] MEDS ORDERED: DEXTROSE 5%-WATER - 50 ML IVPB ONE ×3 (01:52→17:21)
[2019-09-30] MEDS ORDERED: PIPERACILLIN/TAZOBACTAM 3.375 GM VIAL IVPB ONE ×3 (01:52→17:21)
[2019-09-30] MEDS: PIPERACILLIN/TAZOB 3.375 GM 3.375 GM in DEXTROSE 5%-WATER - 50 ML IVPB SCH ×3 (01:57→17:22)
[2019-09-30] MEDS: HEPARIN NA (PORCINE) 5,000 UNITS/ML 1ML VIAL SQ SCH ×3 (05:18→21:18)
[2019-09-30 06:44] LABS: BASO % 0.1 % (0-2.0); EOS % 0.6 % (0-4.5); HEMATOCRIT 28.7 % (32.4-45.2); HEMOGLOBIN 8.7 GM/dL (10.7-15.3); LYMPH % 4.6 % (8-40); MCH 28.2 pg (25.7-33.7); MCHC 30.3 g/dl (32.0-36.0); MEAN CELL VOLUME 93.1 fl (80-96); MEAN PLT VOLUME 9.7 fl (7.5-11.1); MONO % 2.9 % (3.8-10.2); NEUT % 91.8 % (42.8-82.8); PLATELET COUNT 126 K/MM3 (134-434); RBC 3.08 M/mm3 (3.60-5.2); RDW 17.7 % (11.6-15.6)
[2019-09-30 07:29] LABS: ALBUMIN 1.4 g/dl (3.4-5.0); BILIRUBIN,TOTAL 0.4 mg/dL (0.2-1); BLOOD UREA NITROGEN 22.4 mg/dL (7-18); CREATININE 0.6 mg/dL (0.55-1.3); MAGNESIUM 1.4 mg/dL (1.8-2.4); POTASSIUM 3.3 mmol/L (3.5-5.1); TOT PROT 3.3 g/dl (6.4-8.2)
[2019-09-30 07:38] LABS: CALCIUM 5.6 mg/dL (8.5-10.1)
[2019-09-30] MEDS ORDERED: CALCIUM GLUCONATE 10% - 1,000 MG/10 ML VIAL IVPB ONE (07:47)
[2019-09-30] MEDS ORDERED: MAGNESIUM SULF 50% (8.12 MEQ/2 ML-1 GM VIAL) IVPB ONE (07:49)
--- NOTE | 2019-09-30 07:54 | PN ---
Physical Exam: SUBJECTIVE: Patient seen and examined by the bedside. She is sedated and intubated, unresponsive to noxious stimuli. Initiated a brief sedation vacation , sedations resumed 30 minutes later. OBJECTIVE: Vital Signs Period Temp Pulse Resp BP Sys/Christy Pulse Ox Last 24 Hr 97.8 F-100.3 F 57-95 12-32 106-173/35-80 95-97 GENERAL: Sedated, intubated HEAD: Normal with no signs of trauma. EYES: PRINCESS EARS, NOSE, THROAT: Dry mucus membranes LUNGS: Diminished B/L HEART: RRR, no murmurs ABDOMEN: Soft, nontender, not distended LOWER EXTREMITIES: 2x2cm ulcer on right heel 2+ pulses, warm, no edema NEUROLOGICAL: Sedated and intubated SKIN: B/L mastectomy noted, Laboratory Results - last 24 hr 09/29/19 09/29/19 09/29/19 05:40 05:40 05:40 WBC 19.0 H RBC 4.23 Hgb 12.2 Hct 38.8 MCV 91.9 MCH 28.9 MCHC 31.4 L RDW 17.4 H Plt Count 157 D MPV 9.7 Absolute Neuts (auto) 17.1 H Neutrophils % 90.0 H Lymphocytes % 4.4 L D Monocytes % 4.8 Eosinophils % 0.7 D Basophils % 0.1 Nucleated RBC % 0 Sodium 150 H Potassium 4.3 Chloride 117 H Carbon Dioxide 22 Anion Gap 11 BUN 30.1 H Creatinine 1.3 Est GFR (CKD-EPI)AfAm 45.50 Est GFR (CKD-EPI)NonAf 39.26 Random Glucose 94 Hemoglobin A1c % Lactic Acid 3.8 H* Calcium 8.7 Phosphorus Magnesium Total Bilirubin 0.4 AST 29 ALT 28 Alkaline Phosphatase 81 Total Protein 5.9 L Albumin 2.7 L 09/29/19 09/30/19 09/30/19 05:40 06:30 06:30 WBC 12.0 H RBC 3.08 L Hgb 8.7 L Hct 28.7 L D MCV 93.1 MCH 28.2 MCHC 30.3 L RDW 17.7 H Plt Count 126 L MPV 9.7 Absolute Neuts (auto) 11.0 H Neutrophils % 91.8 H Lymphocytes % 4.6 L Monocytes % 2.9 L Eosinophils % 0.6 Basophils % 0.1 Nucleated RBC % 0 Sodium 149 H Potassium 3.3 L Chloride 124 H Carbon Dioxide 17 L Anion Gap 9 BUN 22.4 H Creatinine 0.6 Est GFR (CKD-EPI)AfAm 101.18 Est GFR (CKD-EPI)NonAf 87.30 Random Glucose 226 H Hemoglobin A1c % 5.5 Lactic Acid Calcium 5.6 L* Phosphorus 2.0 L Magnesium 1.4 L Total Bilirubin 0.4 AST 23 ALT 24 Alkaline Phosphatase 61 Total Protein 3.3 L Albumin 1.4 L 09/30/19 06:30 WBC RBC Hgb Hct MCV MCH MCHC RDW Plt Count MPV Absolute Neuts (auto) Neutrophils % Lymphocytes % Monocytes % Eosinophils % Basophils % Nucleated RBC % Sodium Potassium Chloride Carbon Dioxide Anion Gap BUN Creatinine Est GFR (CKD-EPI)AfAm Est GFR (CKD-EPI)NonAf Random Glucose Hemoglobin A1c % Lactic Acid 2.3 H* Calcium Phosphorus Magnesium Total Bilirubin AST ALT Alkaline Phosphatase Total Protein Albumin Active Medications Generic Name Dose Route Start Last Admin Trade Name Freq PRN Reason Stop Dose Admin Albuterol Sulfate 1 amp 09/29/19 10:51 Ventolin 0.083% Nebulizer Soln - NEB Q4H PRN SHORT OF BREATH/WHEEZING Albuterol/Ipratropium 1 amp 09/29/19 12:00 09/29/19 20:30 Duoneb - NEB 1 amp RQID MAGDIEL Administration Chlorhexidine Gluconate 1 applic 09/28/19 22:00 09/29/19 21:51 Hibiclens For Decolonization - TP 1 applic HS MAGDIEL Administration Heparin Sodium (Porcine) 5,000 unit 09/28/19 22:00 09/30/19 05:18 Heparin - SQ 5,000 unit TID MAGDIEL Administration Propofol 1,000,000 mcg in 100 mls @ 1.497 mls/hr 09/28/19 13:30 09/28/19 23: 30 Diprivan - IVPB 0 mcg/kg/min TITR MAGDIEL 0 mls/hr Titration Protocol 5 MCG/KG/MIN Potassium Chloride/Dextrose/Sod Cl 20 meq in 1,000 mls @ 83 mls/hr 09/28/19 15 :00 09/29/19 16:00 D5-1/2ns+20 Meq Kcl - IV 83 mls/hr ASDIR MAGDIEL Administration Piperacillin Sod/Tazobactam 50 mls @ 100 mls/hr 09/29/19 18:00 09/30/19 01:57 Sod 3.375 gm/ Dextrose IVPB 100 mls/hr Q8H-IV MAGDIEL Administration Protocol Fentanyl 500 mcg/ Dextrose 100 mls @ 10 mls/hr 09/29/19 11:45 09/29/19 21:43 IVPB 09/30/19 11:44 50 mcg/hr TITR MAGDIEL 10 mls/hr Administration Protocol 50 MCG/HR Methylprednisolone Sodium Succinate 40 mg 09/29/19 11:00 09/29/19 11:02 Solu-Medrol - IVPUSH 40 mg DAILY MAGDIEL Administration Mupirocin 1 applic 09/28/19 22:00 09/29/19 21:51 Bactroban Ointment (For Decolonization) - NS 10/03/19 21:59 1 applic BID MAGDIEL Administration ASSESSMENT/PLAN: 79F with PMH of Parkinson's dementia, HTN, HLD, asthma, PUD, colon polyps, renal cysts, Rt breast CA (s/p right-sided mastectomy), OA, autoimmune thyroiditis. Presented to [facility]'s ER from [facility] (09/28) in acute hypoxic respiratory failure 2/2 aspiration, was subsequently intubated prior to arrival , and was admitted for suspected aspiration pneumonia. Remains intubated and sedate. 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 #Pulm: Acute hypoxic respiratory failure 2/2 aspiration, hx asthma - CXR: segmental Rt lower lobe infiltrate, resolving Rt upper lobe consolidation - Duonebs, Medrol 40 daily - Consult placed (Dr. Alexander) #Renal: Renal cysts - Trend Cr 1.3 -> 0.6 - Continue Kramer, Is & Os #ID - Aspiration pneumonia with acute hypoxic respiratory failure - WBC 36.8 > 22.3 > 19.0 > 12.0 , afebrile - Zosyn 3.375 Q8H - Sputum, blood cx no growth - LA downtrending - Consult placed (Dr. Hagan) #Heme/Onc: rt breast ca s/p masectomy - Hg 15.0 -> 12.2 -> 8.7 sudden drop with no supporting clinical indicators suggestive of lab error, repeat labs ordered for noon - Pt 157 -> 126 - PT with INR 13.5 #FEN: - D5 in 10/22 N/S with 20mEQ K+ - K 3.3 given 40mEQ IV, Ca 5.6 given Ca gluconate 1gm, Phos 2.0, Mg 1.4 given Mag 1gm - Will place NG tube, may start tube feeds, NPO previously #PPX - Heparin 5000 U, SCDs #Dispo - Martha Melgar is HCP, sent patient's living will which was placed in her file, consent for central line obtained - Continue ICU monitoring ATTENDING PHYSICIAN STATEMENT I saw and evaluated the patient. I reviewed the resident's note and discussed the case with the resident. I agree with the resident's findings and plan as documented. SUBJECTIVE: OBJECTIVE: ASSESSMENT AND PLAN:
[2019-09-30] MEDS: ALBUTEROL SO4 2.5/IPRATROPIUM 0.5 INH SOL 3 ML VIAL.NEB. NEB SCH ×4 (08:30→20:30)
[2019-09-30] MEDS: KCL 10 MEQ IVPB 10 MEQ/100 ML INFUS.BAG IVPB SCH ×3 (08:36→12:43)
[2019-09-30] MEDS: D5-1/4NS+20 MEQ KCL - 20 MEQ/1,000 ML INFUS.BAG IV SCH (08:47)
[2019-09-30] MEDS ORDERED: LABETALOL HCL 5 MG/1 ML (100MG/20 ML VIAL) IVPUSH ONE ×2 (08:57→10:03)
[2019-09-30] MEDS: MUPIROCIN 2% TOPICAL OINTMENT FOR DECOLONIZATION NS SCH ×2 (09:09→21:21)
[2019-09-30 09:52] LABS: ANISOCYTOSIS 1+; MACROCYTOSIS 0; PLATELET ESTIMATE DECREASED
--- NOTE | 2019-09-30 10:01 | PN ---
Teaching Attending Note Name of Resident: Campbell Hinojosa ATTENDING PHYSICIAN STATEMENT I saw and evaluated the patient. I reviewed the resident's note and discussed the case with the resident. I agree with the resident's findings and plan as documented. SUBJECTIVE: Patient seen and examined in the ICU. Remains intubated, sedated on volume assist control. Saturation 86%. FiO2 increased to 50% and PEEP increased to 7. Saturation increased to 90% to 91%. No pressors. CXR: No gross change OBJECTIVE: Intake & Output 09/27/19 09/28/19 09/29/19 09/30/19 23:59 23:59 23:59 23:59 Intake Total 2198 2673 1111 Output Total 10 1000 300 Balance 2188 1673 811 Weight 121 lb Last Vital Signs Temp Pulse Resp BP Pulse Ox 98.6 F 62 24 H 149/64 97 09/30/19 06:00 09/30/19 06:00 09/30/19 09:00 09/30/19 06:00 09/29/19 21:00 Active Medications Albuterol Sulfate (Ventolin 0.083% Nebulizer Soln -) 1 amp NEB Q4H PRN PRN Reason: SHORT OF BREATH/WHEEZING Albuterol/Ipratropium (Duoneb -) 1 amp NEB RQID MAGDIEL Last Admin: 09/30/19 08:30 Dose: 1 amp Chlorhexidine Gluconate (Hibiclens For Decolonization -) 1 applic TP HS MAGDIEL Last Admin: 09/29/19 21:51 Dose: 1 applic Heparin Sodium (Porcine) (Heparin -) 5,000 unit SQ TID MAGDIEL Last Admin: 09/30/19 05:18 Dose: 5,000 unit Propofol (Diprivan -) 1,000,000 mcg in 100 mls @ 1.497 mls/hr IVPB TITR MAGDIEL; Protocol Last Titration: 09/28/19 23:30 Dose: 0 mcg/kg/min, 0 mls/hr Piperacillin Sod/Tazobactam (Sod 3.375 gm/ Dextrose) 50 mls @ 100 mls/hr IVPB Q8H-IV MAGDIEL; Protocol Last Admin: 09/30/19 09:09 Dose: 100 mls/hr Fentanyl 500 mcg/ Dextrose 100 mls @ 10 mls/hr IVPB TITR MAGDIEL; Protocol Stop: 09/30/19 11:44 Last Admin: 09/29/19 21:43 Dose: 50 mcg/hr, 10 mls/hr Potassium Chloride (Potassium Chloride 10 Meq Premix Ivpb -) 10 meq in 100 mls @ 100 mls/hr IVPB Q60M [facility] Stop: 09/30/19 10:59 Last Admin: 09/30/19 08:36 Dose: 100 mls/hr Dextrose/Sodium Chloride (D5-1/4ns+20 Meq Kcl -) 20 meq in 1,000 mls @ 83 mls/ hr IV ASDIR [facility] Last Admin: 09/30/19 08:47 Dose: 83 mls/hr Methylprednisolone Sodium Succinate (Solu-Medrol -) 40 mg IVPUSH DAILY [facility] Last Admin: 09/29/19 11:02 Dose: 40 mg Mupirocin (Bactroban Ointment (For Decolonization) -) 1 applic NS BID [facility] Stop: 10/03/19 21:59 Last Admin: 09/30/19 09:09 Dose: 1 applic Gen: intubated, sedated Heart: RRR Lung: scattered rhonchi Abd: soft, nontender Ext: no edema BALANCER: sedated Laboratory Results - last 24 hr 09/30/19 09/30/19 09/30/19 06:30 06:30 06:30 WBC 12.0 H RBC 3.08 L Hgb 8.7 L Hct 28.7 L D MCV 93.1 MCH 28.2 MCHC 30.3 L RDW 17.7 H Plt Count 126 L MPV 9.7 Absolute Neuts (auto) 11.0 H Neutrophils % 91.8 H Neutrophils % (Manual) 91.9 H Band Neutrophils % 2.0 Lymphocytes % 4.6 L Lymphocytes % (Manual) 5.1 L D Monocytes % 2.9 L Monocytes % (Manual) 1 L Eosinophils % 0.6 Eosinophils % (Manual) 0.0 Basophils % 0.1 Basophils % (Manual) 0.0 Myelocytes % (Man) 0 Promyelocytes % (Man) 0 Blast Cells % (Manual) 0 Nucleated RBC % 0 Metamyelocytes 0 Hypochromia 0 Platelet Estimate Decreased Polychromasia 0 Poikilocytosis 0 Anisocytosis 1+ Microcytosis 0 Macrocytosis 0 Kye Cells 1+ Sodium 149 H Potassium 3.3 L Chloride 124 H Carbon Dioxide 17 L Anion Gap 9 BUN 22.4 H Creatinine 0.6 Est GFR (CKD-EPI)AfAm 101.18 Est GFR (CKD-EPI)NonAf 87.30 Random Glucose 226 H Lactic Acid 2.3 H* Calcium 5.6 L* Phosphorus 2.0 L Magnesium 1.4 L Total Bilirubin 0.4 AST 23 ALT 24 Alkaline Phosphatase 61 Total Protein 3.3 L Albumin 1.4 L ASSESSMENT AND PLAN: Acute Hypoxic and Hypercapneic Respiratory Failure Pneumonia likely Aspiration Severe Sepsis Lactic Acidosis Asthma HTN Hyperlipidemia Parkinsons Dementia h/o Breast Ca - continue antibiotics - f/u cultures - medrol - inhaled bronchodilators - FiO2 and PEEP increased - IVF - monitor urine output, creatinine - trend lactate - Sedation vacation to assess mental status - spontaneous breathing trials as tolerated when mental status improved - enteral feeds if unable to extubate - DVT/GI prophylaxis - continue ICU monitoring Dr Moody Critical care time spent in reviewing chart, evaluating patient and formulating plan 35 min
[2019-09-30] MEDS: methylPREDNISolone NA SUCC 40 MG/1 ML VIAL IVPUSH SCH (10:05)
[2019-09-30] MEDS ORDERED: fentaNYL CITRATE 250 MCG/5 ML VIAL ONE ×2 (10:11→20:15)
[2019-09-30] MEDS ORDERED: MIDAZOLAM IN 0.9 % SOD.CHLORID 1 MG/1 ML PLAST..BAG ONE (10:11)
--- NOTE | 2019-09-30 12:18 | PN ---
Progress Note, Physician Chief Complaint: Patient examined at the bedside, intubated and sedated. History of Present Illness: This 79 yr old w/f with history of Parkinson's disease, dementia, severe microvascular disease of the brain, depression, anxiety, GERD, hypertension, and Lili's thyroiditis admitted via ER at [facility] on 09/28/19 with acute respiratory failure with hypoxia and hypercapnia, acute sepsis, acute aspiration pneumonia, acute leukocytosis with neutrophilia, and acute toxic metabolic encephalopathy. - Current Medication List Current Medications: Active Medications Albuterol Sulfate (Ventolin 0.083% Nebulizer Soln -) 1 amp NEB Q4H PRN PRN Reason: SHORT OF BREATH/WHEEZING Albuterol/Ipratropium (Duoneb -) 1 amp NEB RQID MAGDIEL Last Admin: 09/30/19 11:48 Dose: 1 amp Chlorhexidine Gluconate (Hibiclens For Decolonization -) 1 applic TP HS MAGDIEL Last Admin: 09/29/19 21:51 Dose: 1 applic Heparin Sodium (Porcine) (Heparin -) 5,000 unit SQ TID MAGDIEL Last Admin: 09/30/19 05:18 Dose: 5,000 unit Propofol (Diprivan -) 1,000,000 mcg in 100 mls @ 1.497 mls/hr IVPB TITR MAGDIEL; Protocol Last Titration: 09/28/19 23:30 Dose: 0 mcg/kg/min, 0 mls/hr Piperacillin Sod/Tazobactam (Sod 3.375 gm/ Dextrose) 50 mls @ 100 mls/hr IVPB Q8H-IV MAGDIEL; Protocol Last Admin: 09/30/19 09:09 Dose: 100 mls/hr Dextrose/Sodium Chloride (D5-1/4ns+20 Meq Kcl -) 20 meq in 1,000 mls @ 83 mls/ hr IV ASDIR MAGDIEL Last Admin: 09/30/19 08:47 Dose: 83 mls/hr Methylprednisolone Sodium Succinate (Solu-Medrol -) 40 mg IVPUSH DAILY MAGDIEL Last Admin: 09/30/19 10:05 Dose: 40 mg Mupirocin (Bactroban Ointment (For Decolonization) -) 1 applic NS BID MAGDIEL Stop: 10/03/19 21:59 Last Admin: 09/30/19 09:09 Dose: 1 applic - Objective Vital Signs: Vital Signs Temperature 97.7 F 09/30/19 10:18 Pulse Rate 68 09/30/19 12:00 Respiratory Rate 17 09/30/19 12:00 Blood Pressure 153/77 09/30/19 12:00 O2 Sat by Pulse Oximetry (%) 97 09/29/19 21:00 Constitutional: Yes: Cachectic Eyes: Yes: Conjunctiva Clear, EOM Intact HENT: Yes: Atraumatic, Normocephalic Neck: Yes: Supple, Trachea Midline Cardiovascular: Yes: Regular Rate and Rhythm Respiratory: Yes: Mechanically Ventilated, Rhonchi Gastrointestinal: Yes: Normal Bowel Sounds, Soft ...Rectal Exam: Yes: Deferred Genitourinary: Yes: Incontinence Breast(s): Yes: Other (status post right simple mastectomy) Extremities: Yes: Cool, Other (superficial pressure ulcer of the left heel) Edema: No Peripheral Pulses WNL: Yes Peripheral Pulses: Left Radial: 3+, Right Radial: 3+, Left Doralis Pedis: 2+, Right Dorsalis Pedis: 2+, Left Femoral: 3+, Right Femoral: 3+ Integumentary: Yes: Pressure Ulcer (left heel) Neurological: Yes: Unresponsive ...Motor Strength: LUE (unable to examine, sedated and intubated.) Labs: CBC, BMP 09/30/19 06:30 09/30/19 06:30 INR, PTT INR 1.21 (0.82-1.09) 09/28/19 12:45 - ....Imaging Chest X-ray: Report Reviewed Other: Report Reviewed (Lab data reviewed.) Problem List - Problems (1) Acute aspiration pneumonia Assessment/Plan: IV fluids, Zosyn, Vancomycin, and Solumedrol. Code(s): J69.0 - PNEUMONITIS DUE TO INHALATION OF FOOD AND VOMIT (2) Acute respiratory failure with hypoxia Assessment/Plan: IV fluids, Zosyn, Vancomycin, and Solumederol. Albuterol inhalation. Code(s): J96.01 - ACUTE RESPIRATORY FAILURE WITH HYPOXIA (3) Sepsis Assessment/Plan: IV fluids, Zosyn, and Vancomycin Code(s): A41.9 - SEPSIS, UNSPECIFIED ORGANISM (4) Hypokalemia Assessment/Plan: IV potassium chloride Code(s): E87.6 - HYPOKALEMIA (5) Hypocalcemia Assessment/Plan: IV calcium gluconate Code(s): E83.51 - HYPOCALCEMIA Assessment/Plan Plan: Acute respiratory failure with hypoxia and hypercapnia, acute severe sepsis, acute aspiration pneumonia, acute hypocalcemia, acute hypokalemia, acute thrombocytopenia, acute hypomagenesemia, acute hypophosphatemia, acute anemia, IV fluids, nasogastric tube insert, enteral nutrition, IV Zosyn, IV Vancomycin, IV Solumedrol, Albuterol inhalation, DVT prophylaxis, IV calcium gluconate, IV potassium chloride, on volume assist control with 50% Fi02, discussed clinical condition of the patient with hcp Martha.
[2019-09-30] MEDS ORDERED: ACETAMINOPHEN 1000 MG/100 ML VIAL (NON FORMULARY) IVPB ONE (12:44)
[2019-09-30 13:23] LABS: BILIRUBIN,TOTAL 0.2 mg/dL (0.2-1); BLOOD UREA NITROGEN 24.3 mg/dL (7-18); CALCIUM 7.5 mg/dL (8.5-10.1); CREATININE 0.8 mg/dL (0.55-1.3); PHOSPHOROUS 2.3 mg/dL (2.5-4.9); POTASSIUM 3.9 mmol/L (3.5-5.1); TOT PROT 4.5 g/dl (6.4-8.2)
--- NOTE | 2019-09-30 16:19 | PN ---
Progress Note, Physician History of Present Illness: SEDATED ON VENTILATOR NO ACUTE DISTRESS LOW GRADE TEMP LEUKOCYTOSIS IMPROVED - Current Medication List Current Medications: Active Medications Albuterol Sulfate (Ventolin 0.083% Nebulizer Soln -) 1 amp NEB Q4H PRN PRN Reason: SHORT OF BREATH/WHEEZING Albuterol/Ipratropium (Duoneb -) 1 amp NEB RQID MAGDIEL Last Admin: 09/30/19 11:48 Dose: 1 amp Chlorhexidine Gluconate (Hibiclens For Decolonization -) 1 applic TP HS MAGDIEL Last Admin: 09/29/19 21:51 Dose: 1 applic Heparin Sodium (Porcine) (Heparin -) 5,000 unit SQ TID MAGDIEL Last Admin: 09/30/19 14:39 Dose: 5,000 unit Propofol (Diprivan -) 1,000,000 mcg in 100 mls @ 1.497 mls/hr IVPB TITR MAGDIEL; Protocol Last Titration: 09/28/19 23:30 Dose: 0 mcg/kg/min, 0 mls/hr Piperacillin Sod/Tazobactam (Sod 3.375 gm/ Dextrose) 50 mls @ 100 mls/hr IVPB Q8H-IV MAGDIEL; Protocol Last Admin: 09/30/19 09:09 Dose: 100 mls/hr Dextrose/Sodium Chloride (D5-1/4ns+20 Meq Kcl -) 20 meq in 1,000 mls @ 83 mls/ hr IV ASDIR MAGDIEL Last Admin: 09/30/19 08:47 Dose: 83 mls/hr Methylprednisolone Sodium Succinate (Solu-Medrol -) 40 mg IVPUSH DAILY [facility] Last Admin: 09/30/19 10:05 Dose: 40 mg Mupirocin (Bactroban Ointment (For Decolonization) -) 1 applic NS BID [facility] Stop: 10/03/19 21:59 Last Admin: 09/30/19 09:09 Dose: 1 applic - Objective Vital Signs: Vital Signs Temperature 100.4 F H 09/30/19 13:57 Pulse Rate 88 09/30/19 13:57 Respiratory Rate 19 09/30/19 13:57 Blood Pressure 112/60 09/30/19 13:57 O2 Sat by Pulse Oximetry (%) 97 09/29/19 21:00 Constitutional: Yes: No Distress Cardiovascular: Yes: Regular Rate and Rhythm, S1, S2 Respiratory: Yes: Mechanically Ventilated Gastrointestinal: Yes: Normal Bowel Sounds, Soft. No: Tenderness Edema: No Labs: CBC, BMP 09/30/19 06:30 09/30/19 12:22 INR, PTT INR 1.21 (0.82-1.09) 09/28/19 12:45 Assessment/Plan PROBABLE ASPIRATION PNEUMONIA RESP FAILURE LEUKOCYTOSIS IMPROVED LACTIC ACIDOSIS AZOTEMIA IMPROVED AWAIT C/S CONTINUE EMPIRIC ZOSYN VENTILATORY SUPPORT
[2019-09-30] MEDS: CHLORHEXIDINE GLUCONATE 4% CLEANSER FOR DECOLONIZATION TP SCH (21:20)
[2019-10-01] MEDS ORDERED: PIPERACILLIN/TAZOBACTAM 3.375 GM VIAL IVPB ONE ×3 (00:40→17:42)
[2019-10-01] MEDS ORDERED: DEXTROSE 5%-WATER - 50 ML IVPB ONE ×3 (00:40→17:42)
[2019-10-01] MEDS: PIPERACILLIN/TAZOB 3.375 GM 3.375 GM in DEXTROSE 5%-WATER - 50 ML IVPB SCH ×3 (01:01→17:44)
[2019-10-01] MEDS ORDERED: MIDAZOLAM IN 0.9 % SOD.CHLORID 1 MG/1 ML PLAST..BAG ONE (01:34)
[2019-10-01] MEDS: HEPARIN NA (PORCINE) 5,000 UNITS/ML 1ML VIAL SQ SCH ×3 (05:41→21:11)
[2019-10-01 06:39] LABS: BASO % 0.1 % (0-2.0); HEMATOCRIT 31.5 % (32.4-45.2); LYMPH % 3.3 % (8-40); MCH 28.3 pg (25.7-33.7); MCHC 31.7 g/dl (32.0-36.0); MEAN CELL VOLUME 89.3 fl (80-96); MEAN PLT VOLUME 10.2 fl (7.5-11.1); MONO % 2.6 % (3.8-10.2); PLATELET COUNT 182 K/MM3 (134-434); RBC 3.53 M/mm3 (3.60-5.2); RDW 17.6 % (11.6-15.6); WHITE BLOOD COUNT 10.7 K/mm3 (4.0-10.0)
[2019-10-01] MEDS: MIDAZOLAM IN 0.9 % SOD.CHLORID 100 MG/100 ML PLAST..BAG IVPB SCH (07:00)
[2019-10-01] MEDS: FENTANYL INJECTION 500 MCG in DEXTROSE 5%-WATER - 90 ML IVPB SCH ×2 (07:00→22:01)
[2019-10-01 07:09] LABS: ALBUMIN 1.9 g/dl (3.4-5.0); BILIRUBIN,TOTAL 0.2 mg/dL (0.2-1); BLOOD UREA NITROGEN 31.6 mg/dL (7-18); CALCIUM 8.1 mg/dL (8.5-10.1); TOT PROT 4.8 g/dl (6.4-8.2)
[2019-10-01] MEDS: ALBUTEROL SO4 2.5/IPRATROPIUM 0.5 INH SOL 3 ML VIAL.NEB. NEB SCH ×4 (08:11→20:55)
[2019-10-01] MEDS: D5-1/4NS+20 MEQ KCL - 20 MEQ/1,000 ML INFUS.BAG IV SCH ×2 (08:15→17:45)
[2019-10-01] MEDS: MUPIROCIN 2% TOPICAL OINTMENT FOR DECOLONIZATION NS SCH ×2 (09:40→21:12)
[2019-10-01] MEDS: methylPREDNISolone NA SUCC 40 MG/1 ML VIAL IVPUSH SCH (09:40)
[2019-10-01] MEDS ORDERED: fentaNYL CITRATE 250 MCG/5 ML VIAL ONE ×3 (10:07→21:22)
--- NOTE | 2019-10-01 11:17 | PN ---
Progress Note, Physician Chief Complaint: Patient examined at the bedside. Intubated and sedated. Nasogastric tube in place. History of Present Illness: This 79 yr old w/f with history of Parkinson's disease, dementia, depression, anxiety, hypertension, GERD, cancer of the breast, status post simple right mastectomy admitted via ER at [facility] on 09/28/19 with acute respiratory failure with hypoxia and hypercapnia, acute aspiration pneumonia, acute sepsis, and acute leukocytosis with neutrophilia. - Current Medication List Current Medications: Active Medications Albuterol Sulfate (Ventolin 0.083% Nebulizer Soln -) 1 amp NEB Q4H PRN PRN Reason: SHORT OF BREATH/WHEEZING Albuterol/Ipratropium (Duoneb -) 1 amp NEB RQID MAGDIEL Last Admin: 10/01/19 08:11 Dose: 1 amp Chlorhexidine Gluconate (Hibiclens For Decolonization -) 1 applic TP HS MAGDIEL Last Admin: 09/30/19 21:20 Dose: 1 applic Heparin Sodium (Porcine) (Heparin -) 5,000 unit SQ TID MAGDIEL Last Admin: 10/01/19 05:41 Dose: 5,000 unit Propofol (Diprivan -) 1,000,000 mcg in 100 mls @ 1.497 mls/hr IVPB TITR MAGDIEL; Protocol Last Titration: 09/30/19 21:21 Dose: 0 mcg/kg/min, 0 mls/hr Piperacillin Sod/Tazobactam (Sod 3.375 gm/ Dextrose) 50 mls @ 100 mls/hr IVPB Q8H-IV MAGDIEL; Protocol Last Admin: 10/01/19 09:40 Dose: 100 mls/hr Dextrose/Sodium Chloride (D5-1/4ns+20 Meq Kcl -) 20 meq in 1,000 mls @ 83 mls/ hr IV ASDIR MAGDIEL Last Admin: 09/30/19 08:47 Dose: 83 mls/hr Fentanyl 500 mcg/ Dextrose 100 mls @ 10 mls/hr IVPB TITR MAGDIEL; Protocol Midazolam HCl (Midazolam 100mg/100ml-0.9%Nacl) 100 mg in 100 mls @ 7 mls/hr IVPB TITR MAGDIEL; Protocol Methylprednisolone Sodium Succinate (Solu-Medrol -) 40 mg IVPUSH DAILY [facility] Last Admin: 10/01/19 09:40 Dose: 40 mg Mupirocin (Bactroban Ointment (For Decolonization) -) 1 applic NS BID MAGDIEL Stop: 10/03/19 21:59 Last Admin: 10/01/19 09:40 Dose: 1 applic - Objective Vital Signs: Vital Signs Temperature 97.5 F L 10/01/19 10:00 Pulse Rate 68 10/01/19 10:00 Respiratory Rate 13 10/01/19 10:00 Blood Pressure 113/61 10/01/19 10:00 O2 Sat by Pulse Oximetry (%) 98 10/01/19 08:08 Constitutional: Yes: Cachectic Eyes: Yes: Conjunctiva Clear, EOM Intact HENT: Yes: Atraumatic, Normocephalic Neck: Yes: Supple, Trachea Midline Cardiovascular: Yes: Regular Rate and Rhythm Respiratory: Yes: Mechanically Ventilated, Rhonchi Gastrointestinal: Yes: Normal Bowel Sounds, Soft ...Rectal Exam: Yes: Deferred Genitourinary: Yes: Incontinence Breast(s): Yes: Other (status post right simpe mastectomy) Musculoskeletal: Yes: Other (unable to examine for muscle weakness, sedated and intubated.) Extremities: Yes: Cool Edema: Yes Edema: LUE: 3+ (left hand), RUE: 2+ (right hand) Peripheral Pulses WNL: Yes Peripheral Pulses: Left Radial: 3+, Right Radial: 3+, Left Doralis Pedis: 2+, Right Dorsalis Pedis: 2+, Left Femoral: 3+, Right Femoral: 3+ Integumentary: Yes: Pressure Ulcer (left heel) Neurological: Yes: Other (sedated and intubated) Labs: CBC, BMP 10/01/19 05:36 10/01/19 05:36 INR, PTT INR 1.21 (0.82-1.09) 09/28/19 12:45 - ....Imaging Chest X-ray: Report Reviewed Other: Report Reviewed (Lab data reviewed. ID consult read and appreciated.) Problem List - Problems (1) Acute aspiration pneumonia Assessment/Plan: IV Zosyn, and Solumedrol. Code(s): J69.0 - PNEUMONITIS DUE TO INHALATION OF FOOD AND VOMIT (2) Acute respiratory failure with hypoxia Assessment/Plan: IV Zosyn, and Solumedrol. Code(s): J96.01 - ACUTE RESPIRATORY FAILURE WITH HYPOXIA (3) Sepsis Assessment/Plan: IV Zosyn, and Solumedrol. Code(s): A41.9 - SEPSIS, UNSPECIFIED ORGANISM Assessment/Plan Plan: Acute respiratory failure with hypoxia, and hypercapnia, acute aspiration pneumonia, acute sepsis, acute hypomagnesemia, cachexia, sedated and intubated, IV fluids, IV Zosyn, IV Solumedrol, IV magnesium, enteral nutrition, DVT prophylaxis, discussed clinical condition of the patient with hcp Martha.
--- NOTE | 2019-10-01 15:03 | PN ---
Progress Note (short form) - Note Progress Note: PULM/CCM Patient seen and examined in the ICU. Off all pressors but remains intubated, sedated on volume assist control. Active Medications Albuterol Sulfate (Ventolin 0.083% Nebulizer Soln -) 1 amp NEB Q4H PRN PRN Reason: SHORT OF BREATH/WHEEZING Albuterol/Ipratropium (Duoneb -) 1 amp NEB RQID MAGDIEL Last Admin: 10/01/19 16:34 Dose: 1 amp Chlorhexidine Gluconate (Hibiclens For Decolonization -) 1 applic TP HS MAGDIEL Last Admin: 09/30/19 21:20 Dose: 1 applic Heparin Sodium (Porcine) (Heparin -) 5,000 unit SQ TID MAGDIEL Last Admin: 10/01/19 13:07 Dose: 5,000 unit Propofol (Diprivan -) 1,000,000 mcg in 100 mls @ 1.497 mls/hr IVPB TITR MAGDIEL; Protocol Last Titration: 09/30/19 21:21 Dose: 0 mcg/kg/min, 0 mls/hr Piperacillin Sod/Tazobactam (Sod 3.375 gm/ Dextrose) 50 mls @ 100 mls/hr IVPB Q8H-IV MAGDIEL; Protocol Last Admin: 10/01/19 17:44 Dose: 100 mls/hr Dextrose/Sodium Chloride (D5-1/4ns+20 Meq Kcl -) 20 meq in 1,000 mls @ 83 mls/ hr IV ASDIR MAGDIEL Last Admin: 10/01/19 17:45 Dose: 83 mls/hr Fentanyl 500 mcg/ Dextrose 100 mls @ 10 mls/hr IVPB TITR MAGDIEL; Protocol Last Admin: 10/01/19 07:00 Dose: 50 mcg/hr, 10 mls/hr Midazolam HCl (Midazolam 100mg/100ml-0.9%Nacl) 100 mg in 100 mls @ 7 mls/hr IVPB TITR MAGDIEL; Protocol Last Admin: 10/01/19 07:00 Dose: 7 mg/hr, 7 mls/hr Insulin Human Regular (Novolin R Vial *For Ivpush Or Iv Drip Only*) 0 units SQ TID [facility] Methylprednisolone Sodium Succinate (Solu-Medrol -) 40 mg IVPUSH DAILY [facility] Last Admin: 10/01/19 09:40 Dose: 40 mg Mupirocin (Bactroban Ointment (For Decolonization) -) 1 applic NS BID [facility] Stop: 10/03/19 21:59 Last Admin: 10/01/19 09:40 Dose: 1 applic Vital Signs Period Temp Pulse Resp BP Sys/Christy Pulse Ox Last 24 Hr 97.5 F-98.6 F 66-89 12-21 99-165/53-68 96-98 Intake & Output 09/28/19 09/29/19 09/30/19 10/01/19 23:59 23:59 23:59 23:59 Intake Total 2198 2673 2251 1850 Output Total 10 2019 593 6498 Balance 2188 1673 1501 800 Weight 54.885 kg 54.885 kg Gen: intubated, sedated Heart: RRR Lung: scattered rhonchi Abd: soft, nontender Ext: no edema CRIMINAL PSYCHOLOGIST: sedated CBC, BMP 10/01/19 05:36 10/01/19 05:36 Microbiology 09/28/19 12:48 Blood - Peripheral Venous Blood Culture - Preliminary NO GROWTH OBTAINED AFTER 72 HOURS, INCUBATION TO CONTINUE FOR 2 DAYS. 09/28/19 12:40 Blood - Peripheral Venous Blood Culture - Preliminary NO GROWTH OBTAINED AFTER 72 HOURS, INCUBATION TO CONTINUE FOR 2 DAYS. 09/28/19 23:00 Sputum - Endotrachea Suction/Ventilator Gram Stain - Final 09/28/19 23:00 Sputum - Endotrachea Suction/Ventilator Sputum Culture - Final Klebsiella Pneumoniae Yeast Like Organism CXR 09/30: ETT in good position, COPD (My Read). ASSESSMENT AND PLAN: Acute Hypoxic and Hypercapneic Respiratory Failure Pneumonia likely Aspiration Severe Sepsis Lactic Acidosis Asthma HTN Hyperlipidemia Parkinsons Dementia h/o Breast Ca - Cont Vent support - Nebs - Steroids - Wean FiO2 & PEEP as tolerated - continue antibiotics - f/u cultures - IVFs - monitor urine output, creatinine - trend lactate - Sedation vacation to assess mental status - SBTs once down to 30% & PEEP of 5 - TFs - DVT/GI prophylaxis - continue ICU monitoring [facility] PULM/CCM [id number]
[2019-10-01] MEDS: INSULIN SLIDING SCALE (NOVOLOG) 1 VIAL SQ SCH (18:11)
[2019-10-01] MEDS: CHLORHEXIDINE GLUCONATE 4% CLEANSER FOR DECOLONIZATION TP SCH (21:12)
[2019-10-01] MEDS ORDERED: INSULIN REGULAR HUMAN 100 UNITS/ML *VIAL SQ SCH (22:00)
[2019-10-02] MEDS ORDERED: fentaNYL CITRATE 250 MCG/5 ML VIAL ONE ×2 (02:36→14:22)
[2019-10-02] MEDS: PIPERACILLIN/TAZOB 3.375 GM 3.375 GM in DEXTROSE 5%-WATER - 50 ML IVPB SCH ×2 (02:39→09:14)
[2019-10-02] MEDS: FENTANYL INJECTION 500 MCG in DEXTROSE 5%-WATER - 90 ML IVPB SCH ×2 (04:30→14:29)
[2019-10-02] MEDS: MIDAZOLAM IN 0.9 % SOD.CHLORID 100 MG/100 ML PLAST..BAG IVPB SCH ×2 (05:00→19:00)
[2019-10-02] MEDS: HEPARIN NA (PORCINE) 5,000 UNITS/ML 1ML VIAL SQ SCH ×3 (05:57→21:19)
[2019-10-02] MEDS: INSULIN SLIDING SCALE (NOVOLOG) 1 VIAL SQ SCH ×3 (06:13→17:45)
[2019-10-02 06:36] LABS: HEMATOCRIT 31.4 % (32.4-45.2); LYMPH % 4.1 % (8-40); MCH 28.3 pg (25.7-33.7); MCHC 31.9 g/dl (32.0-36.0); MEAN CELL VOLUME 88.8 fl (80-96); MEAN PLT VOLUME 10.1 fl (7.5-11.1); MONO % 7.6 % (3.8-10.2); NEUT % 88.3 % (42.8-82.8); PLATELET COUNT 212 K/MM3 (134-434); RBC 3.54 M/mm3 (3.60-5.2); RDW 17.2 % (11.6-15.6); WHITE BLOOD COUNT 8.4 K/mm3 (4.0-10.0)
[2019-10-02 06:52] LABS: ALBUMIN 1.9 g/dl (3.4-5.0); BILIRUBIN,TOTAL 0.2 mg/dL (0.2-1); CALCIUM 7.9 mg/dL (8.5-10.1); CREATININE 0.9 mg/dL (0.55-1.3); POTASSIUM 4.9 mmol/L (3.5-5.1)
[2019-10-02] MEDS: ALBUTEROL SO4 2.5/IPRATROPIUM 0.5 INH SOL 3 ML VIAL.NEB. NEB SCH ×4 (08:30→19:56)
[2019-10-02] MEDS ORDERED: PIPERACILLIN/TAZOBACTAM 3.375 GM VIAL IVPB ONE (09:09)
[2019-10-02] MEDS ORDERED: DEXTROSE 5%-WATER - 50 ML IVPB ONE (09:10)
[2019-10-02] MEDS: methylPREDNISolone NA SUCC 40 MG/1 ML VIAL IVPUSH SCH (09:14)
[2019-10-02] MEDS: MUPIROCIN 2% TOPICAL OINTMENT FOR DECOLONIZATION NS SCH ×2 (09:15→21:20)
--- NOTE | 2019-10-02 10:30 | PN ---
Progress Note (short form) - Note Progress Note: Seen and examined in the ICU Remains intubated Sputum w/ Kleb PNA resist to zosyn ID consulted Desaturated with decreased sedation LUE swelling w/ bullae, U/S pending Current Medications Albuterol Sulfate (Ventolin 0.083% Nebulizer Soln -) 1 amp NEB Q4H PRN PRN Reason: SHORT OF BREATH/WHEEZING Albuterol/Ipratropium (Duoneb -) 1 amp NEB RQID [facility] Last Admin: 10/01/19 20:55 Dose: 1 amp Chlorhexidine Gluconate (Hibiclens For Decolonization -) 1 applic TP HS [facility] Last Admin: 10/01/19 21:12 Dose: Not Given Heparin Sodium (Porcine) (Heparin -) 5,000 unit SQ TID [facility] Last Admin: 10/02/19 05:57 Dose: 5,000 unit Propofol (Diprivan -) 1,000,000 mcg in 100 mls @ 1.497 mls/hr IVPB TITR [facility]; Protocol Last Titration: 09/30/19 21:21 Dose: 0 mcg/kg/min, 0 mls/hr Piperacillin Sod/Tazobactam (Sod 3.375 gm/ Dextrose) 50 mls @ 100 mls/hr IVPB Q8H-IV [facility]; Protocol Last Admin: 10/02/19 09:14 Dose: 100 mls/hr Fentanyl 500 mcg/ Dextrose 100 mls @ 10 mls/hr IVPB TITR [facility]; Protocol Last Admin: 10/02/19 04:30 Dose: 50 mcg/hr, 10 mls/hr Midazolam HCl (Midazolam 100mg/100ml-0.9%Nacl) 100 mg in 100 mls @ 7 mls/hr IVPB TITR [facility]; Protocol Last Admin: 10/02/19 05:00 Dose: 7 mg/hr, 7 mls/hr Insulin Aspart (Novolog Vial Sliding Scale -) 1 vial SQ TIDAC [facility]; Protocol Last Admin: 10/02/19 06:13 Dose: Not Given Methylprednisolone Sodium Succinate (Solu-Medrol -) 40 mg IVPUSH DAILY [facility] Last Admin: 10/02/19 09:14 Dose: 40 mg Mupirocin (Bactroban Ointment (For Decolonization) -) 1 applic NS BID [facility] Stop: 10/03/19 21:59 Last Admin: 10/02/19 09:15 Dose: 1 applic Vital Signs Period Temp Pulse Resp BP Sys/Christy Pulse Ox Last 24 Hr 97.6 F-97.9 F 69-90 12-21 105-128/49-80 90-97 Intake & Output 09/29/19 09/30/19 10/01/19 10/02/19 23:59 23:59 23:59 23:59 Intake Total 2673 2251 3676 1284 Output Total 6233 468 6768 800 Balance 1673 1501 2026 484 Weight 54.885 kg Exam: General: Intubated and sedated HEENT: PERRL, mild JVD CV: RRR Pulm: coarse crackles Abd:SNTND +BS Ext: LUE swollen, w/ mulitple bullea. LE trace edema Neuro: RASS-3/4 CBC, BMP 10/02/19 05:35 10/02/19 05:35 Microbiology 09/28/19 12:48 Blood - Peripheral Venous Blood Culture - Preliminary NO GROWTH OBTAINED AFTER 72 HOURS, INCUBATION TO CONTINUE FOR 2 DAYS. 09/28/19 12:40 Blood - Peripheral Venous Blood Culture - Preliminary NO GROWTH OBTAINED AFTER 72 HOURS, INCUBATION TO CONTINUE FOR 2 DAYS. 09/28/19 23:00 Sputum - Endotrachea Suction/Ventilator Gram Stain - Final 09/28/19 23:00 Sputum - Endotrachea Suction/Ventilator Sputum Culture - Final Klebsiella Pneumoniae Yeast Like Organism ASSESSMENT AND PLAN: Acute Hypoxic and Hypercapneic Respiratory Failure Pneumonia likely Aspiration: Klebs Severe Sepsis Lactic Acidosis Asthma HTN Hyperlipidemia Parkinsons Dementia h/o Breast Ca - Cont Vent support - Nebs - Steroids - Wean FiO2 & PEEP as tolerated - change antibiotics given resistant to zosyn - monitor urine output, creatinine - Sedation vacation to assess mental status - SBTs once down to 30% & PEEP of 5 (failed today 2/2 desaturation) - TFs - DVT/GI prophylaxis - LUE dopplers t/o r/o DVT - continue ICU monitoring Boerem ACNP Pulm/CCM CCT: 40m
--- NOTE | 2019-10-02 10:45 | PN ---
Progress Note (short form) - Note Progress Note: sedated and intubated Vital Signs Period Temp Pulse Resp BP Sys/Christy Pulse Ox Last 24 Hr 97.6 F-97.9 F 69-90 12-21 105-128/49-80 90-97 cor-rrr llungs clear abd soft,nt ext no edema CBC, BMP 10/02/19 05:35 10/02/19 05:35 Microbiology 09/28/19 12:48 Blood - Peripheral Venous Blood Culture - Preliminary NO GROWTH OBTAINED AFTER 72 HOURS, INCUBATION TO CONTINUE FOR 2 DAYS. 09/28/19 12:40 Blood - Peripheral Venous Blood Culture - Preliminary NO GROWTH OBTAINED AFTER 72 HOURS, INCUBATION TO CONTINUE FOR 2 DAYS. 09/28/19 23:00 Sputum - Endotrachea Suction/Ventilator Gram Stain - Final 09/28/19 23:00 Sputum - Endotrachea Suction/Ventilator Sputum Culture - Final Klebsiella Pneumoniae Yeast Like Organism a/p resp failure pesumed aspiration pneumonia klebsiella resistant to zosyn will switch to ceftriaxone based on sensitivities
[2019-10-02] MEDS ORDERED: DEXTROSE 5%-WATER 100 ML IVPB ONE (12:50)
[2019-10-02] MEDS: CEFTRIAXONE 2 GM in DEXTROSE 5%-WATER 100 ML IVPB SCH (12:53)
--- NOTE | 2019-10-02 13:31 | PN ---
Progress Note, Physician Chief Complaint: Patient examined at the bedside, sedated and intubated. History of Present Illness: This 79 yr old w/f with history of hypertension, hyperlipidemia, Parkinson's disease, dementia, autoimmune thyroiditis, depression, anxiety, cancer of the breast, GERD, and severe microvascular disease of the brain admitted via ER at [facility] on 09/28/19 with acute respiratory failure with hypoxia and hypercapnia, acute aspiration pneumonia, acute sepsis, and leukocytosis with neutrophilia. - Current Medication List Current Medications: Active Medications Albuterol Sulfate (Ventolin 0.083% Nebulizer Soln -) 1 amp NEB Q4H PRN PRN Reason: SHORT OF BREATH/WHEEZING Albuterol/Ipratropium (Duoneb -) 1 amp NEB RQID [facility] Last Admin: 10/02/19 11:52 Dose: 1 amp Chlorhexidine Gluconate (Hibiclens For Decolonization -) 1 applic TP HS [facility] Last Admin: 10/01/19 21:12 Dose: Not Given Heparin Sodium (Porcine) (Heparin -) 5,000 unit SQ TID [facility] Last Admin: 10/02/19 05:57 Dose: 5,000 unit Propofol (Diprivan -) 1,000,000 mcg in 100 mls @ 1.497 mls/hr IVPB TITR [facility]; Protocol Last Titration: 09/30/19 21:21 Dose: 0 mcg/kg/min, 0 mls/hr Fentanyl 500 mcg/ Dextrose 100 mls @ 10 mls/hr IVPB TITR [facility]; Protocol Last Admin: 10/02/19 04:30 Dose: 50 mcg/hr, 10 mls/hr Midazolam HCl (Midazolam 100mg/100ml-0.9%Nacl) 100 mg in 100 mls @ 7 mls/hr IVPB TITR [facility]; Protocol Last Admin: 10/02/19 05:00 Dose: 7 mg/hr, 7 mls/hr Ceftriaxone Sodium 2 gm/ (Dextrose) 100 mls @ 200 mls/hr IVPB DAILY [facility]; Protocol Last Admin: 10/02/19 12:53 Dose: 200 mls/hr Insulin Aspart (Novolog Vial Sliding Scale -) 1 vial SQ TIDAC [facility]; Protocol Last Admin: 10/02/19 12:30 Dose: Not Given Methylprednisolone Sodium Succinate (Solu-Medrol -) 40 mg IVPUSH DAILY [facility] Last Admin: 10/02/19 09:14 Dose: 40 mg Mupirocin (Bactroban Ointment (For Decolonization) -) 1 applic NS BID [facility] Stop: 10/03/19 21:59 Last Admin: 10/02/19 09:15 Dose: 1 applic - Objective Vital Signs: Vital Signs Temperature 97.6 F 10/02/19 06:00 Pulse Rate 85 10/02/19 08:30 Respiratory Rate 24 H 10/02/19 11:51 Blood Pressure 128/58 L 10/02/19 08:00 O2 Sat by Pulse Oximetry (%) 92 L 10/02/19 08:30 Constitutional: Yes: Cachectic Eyes: Yes: Conjunctiva Clear, EOM Intact HENT: Yes: Atraumatic, Normocephalic Neck: Yes: Supple, Trachea Midline Cardiovascular: Yes: Regular Rate and Rhythm Respiratory: Yes: CTA Bilaterally, Mechanically Ventilated Gastrointestinal: Yes: Normal Bowel Sounds, Soft ...Rectal Exam: Yes: Deferred Genitourinary: Yes: Incontinence Breast(s): Yes: Other (status post right simple mastectomy) Musculoskeletal: Yes: Other (sedated and intuabted, unable to examine) Extremities: Yes: Cool, Other (superficial pressure ulcer of the left heel) Edema: No Peripheral Pulses WNL: Yes Peripheral Pulses: Left Radial: 3+, Right Radial: 3+, Left Doralis Pedis: 2+, Right Dorsalis Pedis: 2+, Left Femoral: 3+, Right Femoral: 3+ Integumentary: Yes: Pressure Ulcer (left heel) Neurological: Yes: Other (sedated and intubated) Labs: CBC, BMP 10/02/19 05:35 10/02/19 05:35 INR, PTT INR 1.21 (0.82-1.09) 09/28/19 12:45 - ....Imaging Ultrasound: Report Reviewed Other: Report Reviewed (Lab data reviewed. ID note read and appreciated.) Problem List - Problems (1) Acute aspiration pneumonia Assessment/Plan: IV Ceftriaxone since Klebsiella pneumoniae is resistant to Zosyn. Code(s): J69.0 - PNEUMONITIS DUE TO INHALATION OF FOOD AND VOMIT (2) Acute respiratory failure with hypoxia Assessment/Plan: IV Ceftriaxone. Albuterol inhalation prn. Mechanical ventilatory support. Code(s): J96.01 - ACUTE RESPIRATORY FAILURE WITH HYPOXIA (3) Sepsis Assessment/Plan: IV Ceftriaxone plus eneteral nutritional support. Code(s): A41.9 - SEPSIS, UNSPECIFIED ORGANISM Assessment/Plan Plan: Acute respiratory failure with hypoxia and hypercapnia, acute aspiration pneumonia, acute sepsis, cachexia, IV Ceftriaxone since Klebsiella pneumonia is resistant to Zosyn, enteral nutrition, Albuterol inh prn, DVT prophylaxis, volume assist control with Fi02 50%, regular insulin coverage, discussed clinical condition of the patient with hcp
[2019-10-02] MEDS: CHLORHEXIDINE GLUCONATE 4% CLEANSER FOR DECOLONIZATION TP SCH (21:20)
[2019-10-02] MEDS ORDERED: INSULIN REGULAR HUMAN 100 UNITS/ML *VIAL SQ SCH (22:00)
[2019-10-03] MEDS ORDERED: fentaNYL CITRATE 250 MCG/5 ML VIAL ONE ×2 (00:18→17:50)
[2019-10-03] MEDS: HEPARIN NA (PORCINE) 5,000 UNITS/ML 1ML VIAL SQ SCH ×3 (05:03→21:38)
[2019-10-03] MEDS: INSULIN SLIDING SCALE (NOVOLOG) 1 VIAL SQ SCH ×3 (06:12→15:58)
[2019-10-03 07:23] LABS: ARTERIAL BLOOD GAS BASE EXCESS -0.6 meq/l (-2-2); ARTERIAL BLOOD GAS PCO2 40.8 mmHg (35-45); ARTERIAL BLOOD GAS PO2 60.1 mmHg (80-100); ARTERIAL BLOOD GAS pH 7.39 (7.35-7.45)
[2019-10-03 07:39] LABS: ALLENS TEST POSITIVE
[2019-10-03] MEDS: ALBUTEROL SO4 2.5/IPRATROPIUM 0.5 INH SOL 3 ML VIAL.NEB. NEB SCH ×4 (07:40→21:25)
[2019-10-03 08:01] LABS: BLOOD UREA NITROGEN 39.7 mg/dL (7-18); CALCIUM 8.7 mg/dL (8.5-10.1); CREATININE 0.8 mg/dL (0.55-1.3); MAGNESIUM 2.4 mg/dL (1.8-2.4); PHOSPHOROUS 2.9 mg/dL (2.5-4.9); POTASSIUM 4.9 mmol/L (3.5-5.1)
[2019-10-03 08:17] LABS: HEMATOCRIT 33.6 % (32.4-45.2); HEMOGLOBIN 10.9 GM/dL (10.7-15.3); MCH 28.4 pg (25.7-33.7); MCHC 32.3 g/dl (32.0-36.0); MEAN PLT VOLUME 9.6 fl (7.5-11.1); PLATELET COUNT 199 K/MM3 (134-434); RBC 3.82 M/mm3 (3.60-5.2); RDW 17.4 % (11.6-15.6); WHITE BLOOD COUNT 7.1 K/mm3 (4.0-10.0)
[2019-10-03] MEDS ORDERED: MAGNESIUM SULF 50% (8.12 MEQ/2 ML-1 GM VIAL) ONE (08:35)
--- NOTE | 2019-10-03 09:37 | PN ---
Progress Note, Physician History of Present Illness: SEDATED ON VENTILATOR NO ACUTE DISTRESS AFEBRILE LEUKOCYTOSIS RESOLVED BC (-) SPUTUM C/S NOTED - Current Medication List Current Medications: Active Medications Albuterol Sulfate (Ventolin 0.083% Nebulizer Soln -) 1 amp NEB Q4H PRN PRN Reason: SHORT OF BREATH/WHEEZING Albuterol/Ipratropium (Duoneb -) 1 amp NEB RQID [facility] Last Admin: 10/03/19 07:40 Dose: 1 amp Chlorhexidine Gluconate (Hibiclens For Decolonization -) 1 applic TP HS [facility] Last Admin: 10/02/19 21:20 Dose: Not Given Heparin Sodium (Porcine) (Heparin -) 5,000 unit SQ TID [facility] Last Admin: 10/03/19 05:03 Dose: 5,000 unit Propofol (Diprivan -) 1,000,000 mcg in 100 mls @ 1.497 mls/hr IVPB TITR [facility]; Protocol Last Titration: 09/30/19 21:21 Dose: 0 mcg/kg/min, 0 mls/hr Fentanyl 500 mcg/ Dextrose 100 mls @ 10 mls/hr IVPB TITR [facility]; Protocol Last Admin: 10/02/19 14:29 Dose: 50 mcg/hr, 10 mls/hr Midazolam HCl (Midazolam 100mg/100ml-0.9%Nacl) 100 mg in 100 mls @ 7 mls/hr IVPB TITR [facility]; Protocol Last Admin: 10/02/19 19:00 Dose: 7 mg/hr, 7 mls/hr Ceftriaxone Sodium 2 gm/ (Dextrose) 100 mls @ 200 mls/hr IVPB DAILY [facility]; Protocol Last Admin: 10/02/19 12:53 Dose: 200 mls/hr Insulin Aspart (Novolog Vial Sliding Scale -) 1 vial SQ TIDAC [facility]; Protocol Last Admin: 10/03/19 06:12 Dose: Not Given Methylprednisolone Sodium Succinate (Solu-Medrol -) 40 mg IVPUSH DAILY [facility] Last Admin: 10/02/19 09:14 Dose: 40 mg Mupirocin (Bactroban Ointment (For Decolonization) -) 1 applic NS BID [facility] Stop: 10/03/19 21:59 Last Admin: 10/02/19 21:20 Dose: 1 applic - Objective Vital Signs: Vital Signs Temperature 98.6 F 10/03/19 06:00 Pulse Rate 73 10/03/19 06:00 Respiratory Rate 17 10/03/19 08:20 Blood Pressure 131/59 L 10/03/19 06:00 O2 Sat by Pulse Oximetry (%) 91 L 10/02/19 19:46 Constitutional: Yes: No Distress Cardiovascular: Yes: Regular Rate and Rhythm, S1, S2 Respiratory: Yes: Mechanically Ventilated Gastrointestinal: Yes: Normal Bowel Sounds, Soft. No: Tenderness Edema: No Labs: CBC, BMP 10/03/19 06:08 10/03/19 06:05 INR, PTT INR 1.21 (0.82-1.09) 09/28/19 12:45 Assessment/Plan PROBABLE ASPIRATION PNEUMONIA RESP FAILURE LEUKOCYTOSIS RESOLVED LACTIC ACIDOSIS AZOTEMIA IMPROVED CONTINUE CEFTRIAXONE VENTILATORY SUPPORT
[2019-10-03] MEDS ORDERED: DEXTROSE 5%-WATER 100 ML IVPB ONE (10:01)
[2019-10-03] MEDS: methylPREDNISolone NA SUCC 40 MG/1 ML VIAL IVPUSH SCH (10:03)
[2019-10-03] MEDS: MUPIROCIN 2% TOPICAL OINTMENT FOR DECOLONIZATION NS SCH (10:04)
[2019-10-03] MEDS: CEFTRIAXONE 2 GM in DEXTROSE 5%-WATER 100 ML IVPB SCH (10:04)
--- NOTE | 2019-10-03 11:55 | PN ---
Teaching Attending Note Name of Resident: Cam Bennett ATTENDING PHYSICIAN STATEMENT I saw and evaluated the patient. I reviewed the resident's note and discussed the case with the resident. I agree with the resident's findings and plan as documented. SUBJECTIVE: Patient seen and examined in the ICU. Intubated and sedated. AC mode of vent, 50% FiO2 and PEEP 7. No pressors. Failed wean attempts over the weekend due to desaturation. Intake & Output 09/30/19 10/01/19 10/02/19 10/03/19 23:59 23:59 23:59 23:59 Intake Total 2251 3676 2502 1068 Output Total 750 1650 1900 600 Balance 1501 2026 602 468 Weight 121 lb Last Vital Signs Temp Pulse Resp BP Pulse Ox 98.6 F 73 17 131/59 L 91 L 10/03/19 06:00 10/03/19 06:00 10/03/19 08:20 10/03/19 06:00 10/02/19 19:46 Active Medications Albuterol Sulfate (Ventolin 0.083% Nebulizer Soln -) 1 amp NEB Q4H PRN PRN Reason: SHORT OF BREATH/WHEEZING Albuterol/Ipratropium (Duoneb -) 1 amp NEB RQID [facility] Last Admin: 10/03/19 07:40 Dose: 1 amp Chlorhexidine Gluconate (Hibiclens For Decolonization -) 1 applic TP HS [facility] Last Admin: 10/02/19 21:20 Dose: Not Given Heparin Sodium (Porcine) (Heparin -) 5,000 unit SQ TID [facility] Last Admin: 10/03/19 05:03 Dose: 5,000 unit Propofol (Diprivan -) 1,000,000 mcg in 100 mls @ 1.497 mls/hr IVPB TITR [facility]; Protocol Last Titration: 09/30/19 21:21 Dose: 0 mcg/kg/min, 0 mls/hr Fentanyl 500 mcg/ Dextrose 100 mls @ 10 mls/hr IVPB TITR [facility]; Protocol Last Titration: 10/03/19 09:00 Dose: 0 mcg/hr, 0 mls/hr Midazolam HCl (Midazolam 100mg/100ml-0.9%Nacl) 100 mg in 100 mls @ 7 mls/hr IVPB TITR [facility]; Protocol Last Infusion: 10/03/19 09:00 Dose: 0 mg/hr, 0 mls/hr Ceftriaxone Sodium 2 gm/ (Dextrose) 100 mls @ 200 mls/hr IVPB DAILY [facility]; Protocol Last Admin: 10/03/19 10:04 Dose: 200 mls/hr Insulin Aspart (Novolog Vial Sliding Scale -) 1 vial SQ TIDAC [facility]; Protocol Last Admin: 10/03/19 11:05 Dose: Not Given Methylprednisolone Sodium Succinate (Solu-Medrol -) 40 mg IVPUSH DAILY [facility] Last Admin: 10/03/19 10:03 Dose: 40 mg Mupirocin (Bactroban Ointment (For Decolonization) -) 1 applic NS BID [facility] Stop: 10/03/19 21:59 Last Admin: 10/03/19 10:04 Dose: 1 applic General: Intubated and sedated HEENT: PERRL, (-) JVD CV: RRR Pulm: bibasilar coarse crackles/rhonchi, no wheeze Abd:SNTND +BS Ext: LUE swollen, w/ mulitple bullea. LE trace edema Neuro: Sedated Laboratory Results - last 24 hr 10/02/19 10/02/19 10/02/19 12:35 17:37 21:17 WBC RBC Hgb Hct MCV MCH MCHC RDW Plt Count MPV Anticoagulation Therapy Puncture Site ABG pH ABG pCO2 at Pt Temp ABG pO2 at Pt Temp ABG HCO3 ABG O2 Sat (Measured) ABG O2 Content ABG Base Excess Bronson Test O2 Delivery Device Oxygen Flow Rate Vent Mode Vent Rate Mechanical Rate PEEP Pressure Support Vent Sodium Potassium Chloride Carbon Dioxide Anion Gap BUN Creatinine Est GFR (CKD-EPI)AfAm Est GFR (CKD-EPI)NonAf POC Glucometer 181 189 166 Random Glucose Calcium Phosphorus Magnesium 10/03/19 10/03/19 10/03/19 05:27 06:05 06:08 WBC 7.1 RBC 3.82 Hgb 10.9 Hct 33.6 MCV 88.0 MCH 28.4 MCHC 32.3 RDW 17.4 H Plt Count 199 MPV 9.6 Anticoagulation Therapy Puncture Site ABG pH ABG pCO2 at Pt Temp ABG pO2 at Pt Temp ABG HCO3 ABG O2 Sat (Measured) ABG O2 Content ABG Base Excess Bronson Test O2 Delivery Device Oxygen Flow Rate Vent Mode Vent Rate Mechanical Rate PEEP Pressure Support Vent Sodium 143 Potassium 4.9 Chloride 112 H Carbon Dioxide 25 Anion Gap 7 L BUN 39.7 H Creatinine 0.8 Est GFR (CKD-EPI)AfAm 81.84 Est GFR (CKD-EPI)NonAf 70.61 POC Glucometer 141 Random Glucose 138 H Calcium 8.7 Phosphorus 2.9 Magnesium 2.4 10/03/19 10/03/19 07:00 11:03 WBC RBC Hgb Hct MCV MCH MCHC RDW Plt Count MPV Anticoagulation Therapy No Result Required. Puncture Site Right radial ABG pH 7.39 ABG pCO2 at Pt Temp 40.8 ABG pO2 at Pt Temp 60.1 L ABG HCO3 23.8 ABG O2 Sat (Measured) 90.0 L ABG O2 Content 14.3 ABG Base Excess -0.6 Bronson Test Positive O2 Delivery Device Vent Oxygen Flow Rate 40% Vent Mode A/c Vent Rate 14 Mechanical Rate Yes PEEP 7.0 Pressure Support Vent 400 Sodium Potassium Chloride Carbon Dioxide Anion Gap BUN Creatinine Est GFR (CKD-EPI)AfAm Est GFR (CKD-EPI)NonAf POC Glucometer 174 Random Glucose Calcium Phosphorus Magnesium ASSESSMENT AND PLAN: Acute Hypoxic and Hypercapneic Respiratory Failure Pneumonia likely Aspiration: Klebs Severe Sepsis Lactic Acidosis Asthma HTN Hyperlipidemia Parkinsons Dementia h/o Breast Ca - Sedation vacation with wean trials as tolerated - Nebs - Steroids - Wean FiO2 & PEEP as tolerated - ABX per ID - monitor urine output, creatinine - TFs - DVT/GI prophylaxis - Requires continued ICU monitoring Dr Moody Critical care time spent in reviewing chart, evaluating patient and formulating plan - 36 minutes.
--- NOTE | 2019-10-03 13:01 | PN ---
Progress Note, Physician Chief Complaint: Patient examined at the bedside in ICU, sedated and intubated. History of Present Illness: This 79 yr old w/f with history of Parkinson's disease, dementia, hypertension, hyperlipidemia, cancer of the breast, autoimmune thyroiditis, depression, and anxiety admitted via ER at [facility] on 09/28/19 with acute respiratory failure with hypercapnia and hypoxia, acute aspiration pneumonia, acute sepsis, and acute neutrophilic leukocytosis. - Current Medication List Current Medications: Active Medications Albuterol Sulfate (Ventolin 0.083% Nebulizer Soln -) 1 amp NEB Q4H PRN PRN Reason: SHORT OF BREATH/WHEEZING Albuterol/Ipratropium (Duoneb -) 1 amp NEB RQID [facility] Last Admin: 10/03/19 11:25 Dose: 1 amp Chlorhexidine Gluconate (Hibiclens For Decolonization -) 1 applic TP HS [facility] Last Admin: 10/02/19 21:20 Dose: Not Given Heparin Sodium (Porcine) (Heparin -) 5,000 unit SQ TID [facility] Last Admin: 10/03/19 05:03 Dose: 5,000 unit Propofol (Diprivan -) 1,000,000 mcg in 100 mls @ 1.497 mls/hr IVPB TITR [facility]; Protocol Last Titration: 09/30/19 21:21 Dose: 0 mcg/kg/min, 0 mls/hr Fentanyl 500 mcg/ Dextrose 100 mls @ 10 mls/hr IVPB TITR [facility]; Protocol Last Titration: 10/03/19 09:00 Dose: 0 mcg/hr, 0 mls/hr Midazolam HCl (Midazolam 100mg/100ml-0.9%Nacl) 100 mg in 100 mls @ 7 mls/hr IVPB TITR [facility]; Protocol Last Infusion: 10/03/19 09:00 Dose: 0 mg/hr, 0 mls/hr Ceftriaxone Sodium 2 gm/ (Dextrose) 100 mls @ 200 mls/hr IVPB DAILY [facility]; Protocol Last Admin: 10/03/19 10:04 Dose: 200 mls/hr Insulin Aspart (Novolog Vial Sliding Scale -) 1 vial SQ TIDAC [facility]; Protocol Last Admin: 10/03/19 11:05 Dose: Not Given Methylprednisolone Sodium Succinate (Solu-Medrol -) 40 mg IVPUSH DAILY [facility] Last Admin: 10/03/19 10:03 Dose: 40 mg Mupirocin (Bactroban Ointment (For Decolonization) -) 1 applic NS BID [facility] Stop: 10/03/19 21:59 Last Admin: 10/03/19 10:04 Dose: 1 applic - Objective Vital Signs: Vital Signs Temperature 98.4 F 10/03/19 10:00 Pulse Rate 94 H 10/03/19 10:00 Respiratory Rate 14 10/03/19 12:07 Blood Pressure 151/71 10/03/19 10:00 O2 Sat by Pulse Oximetry (%) 91 L 10/02/19 19:46 Constitutional: Yes: Cachectic Eyes: Yes: Conjunctiva Clear, EOM Intact HENT: Yes: Atraumatic, Normocephalic Neck: Yes: Supple, Trachea Midline Cardiovascular: Yes: Regular Rate and Rhythm Respiratory: Yes: Intubated, Mechanically Ventilated, Rhonchi, Other (weaning attempts off respirator have failed so far) Gastrointestinal: Yes: Normal Bowel Sounds, Soft ...Rectal Exam: Yes: Deferred Genitourinary: Yes: Incontinence Breast(s): Yes: Other (status post right simple mastectomy) Musculoskeletal: Yes: Muscle Weakness (?critical care polyneuropathy) Extremities: Yes: Cool Edema: Yes Edema: LUE: 2+ Peripheral Pulses WNL: Yes Peripheral Pulses: Left Radial: 3+, Right Radial: 3+, Left Doralis Pedis: 2+, Right Dorsalis Pedis: 2+, Left Femoral: 3+, Right Femoral: 3+ Integumentary: Yes: Pressure Ulcer (left heel) Neurological: Yes: Weakness (?critical care polyneuropathy) ...Motor Strength: LUE (unable to examine, sedated and intubated) Labs: CBC, BMP 10/03/19 06:08 10/03/19 06:05 INR, PTT INR 1.21 (0.82-1.09) 09/28/19 12:45 - ....Imaging Chest X-ray: Report Reviewed EKG: Report Reviewed (Lab data reviewed. ID and critical care notes read and appreciated.) Problem List - Problems (1) Acute aspiration pneumonia Assessment/Plan: IV Ceftriaxone and Solumedrol. Code(s): J69.0 - PNEUMONITIS DUE TO INHALATION OF FOOD AND VOMIT (2) Acute respiratory failure with hypoxia Assessment/Plan: IV Ceftriaxone and Solumedrol, bronchodilator therapy. Code(s): J96.01 - ACUTE RESPIRATORY FAILURE WITH HYPOXIA (3) Sepsis Assessment/Plan: IV Ceftriaxone and Solumedrol. 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
[2019-10-03] MEDS ORDERED: LABETALOL HCL 5 MG/1 ML (100MG/20 ML VIAL) IVPUSH ONE (13:03)
--- NOTE | 2019-10-03 14:41 | PN ---
Physical Exam: SUBJECTIVE: Patient seen and examined in the morning. No acute events overnight. No events on monitoring. Patient is on sedation and intubated, unable to communicate with examiner. OBJECTIVE: Vital Signs Period Temp Pulse Resp BP Sys/Christy Pulse Ox Last 24 Hr 98.4 F-99.6 F 72-100 13-30 119-186/52-85 91 GENERAL: Patient was sedated at time of exam. HEAD: Normal with no signs of trauma. EYES: PERRLA. ENT: ET tube in place. NECK: Trachea midline, full range of motion, supple. LUNGS: Ventilator sounds present. HEART: Regular rate and rhythm, S1, S2, without murmurs rubs or gallops. ABDOMEN: Soft, nontender, nondistended, normoactive bowel sounds. EXTREMITIES: 2+ pulses, warm, well-perfused, no edema. SKIN: Warm, dry, normal turgor, no rashes or lesions noted Laboratory Results - last 24 hr 10/02/19 10/02/19 10/03/19 17:37 21:17 05:27 WBC RBC Hgb Hct MCV MCH MCHC RDW Plt Count MPV Anticoagulation Therapy Puncture Site ABG pH ABG pCO2 at Pt Temp ABG pO2 at Pt Temp ABG HCO3 ABG O2 Sat (Measured) ABG O2 Content ABG Base Excess Bronson Test O2 Delivery Device Oxygen Flow Rate Vent Mode Vent Rate Mechanical Rate PEEP Pressure Support Vent Sodium Potassium Chloride Carbon Dioxide Anion Gap BUN Creatinine Est GFR (CKD-EPI)AfAm Est GFR (CKD-EPI)NonAf POC Glucometer 189 166 141 Random Glucose Calcium Phosphorus Magnesium 10/03/19 10/03/19 10/03/19 06:05 06:08 07:00 WBC 7.1 RBC 3.82 Hgb 10.9 Hct 33.6 MCV 88.0 MCH 28.4 MCHC 32.3 RDW 17.4 H Plt Count 199 MPV 9.6 Anticoagulation Therapy No Result Required. Puncture Site Right radial ABG pH 7.39 ABG pCO2 at Pt Temp 40.8 ABG pO2 at Pt Temp 60.1 L ABG HCO3 23.8 ABG O2 Sat (Measured) 90.0 L ABG O2 Content 14.3 ABG Base Excess -0.6 Bronson Test Positive O2 Delivery Device Vent Oxygen Flow Rate 40% Vent Mode A/c Vent Rate 14 Mechanical Rate Yes PEEP 7.0 Pressure Support Vent 400 Sodium 143 Potassium 4.9 Chloride 112 H Carbon Dioxide 25 Anion Gap 7 L BUN 39.7 H Creatinine 0.8 Est GFR (CKD-EPI)AfAm 81.84 Est GFR (CKD-EPI)NonAf 70.61 POC Glucometer Random Glucose 138 H Calcium 8.7 Phosphorus 2.9 Magnesium 2.4 10/03/19 11:03 WBC RBC Hgb Hct MCV MCH MCHC RDW Plt Count MPV Anticoagulation Therapy Puncture Site ABG pH ABG pCO2 at Pt Temp ABG pO2 at Pt Temp ABG HCO3 ABG O2 Sat (Measured) ABG O2 Content ABG Base Excess Bronson Test O2 Delivery Device Oxygen Flow Rate Vent Mode Vent Rate Mechanical Rate PEEP Pressure Support Vent Sodium Potassium Chloride Carbon Dioxide Anion Gap BUN Creatinine Est GFR (CKD-EPI)AfAm Est GFR (CKD-EPI)NonAf POC Glucometer 174 Random Glucose Calcium Phosphorus Magnesium Active Medications Generic Name Dose Route Start Last Admin Trade Name Freq PRN Reason Stop Dose Admin Albuterol Sulfate 1 amp 09/29/19 10:51 Ventolin 0.083% Nebulizer Soln - NEB Q4H PRN SHORT OF BREATH/WHEEZING Albuterol/Ipratropium 1 amp 09/29/19 12:00 10/03/19 11:25 Duoneb - NEB 1 amp RQID [facility] Administration Chlorhexidine Gluconate 1 applic 09/28/19 22:00 10/02/19 21:20 Hibiclens For Decolonization - TP Not Given HS [facility] Heparin Sodium (Porcine) 5,000 unit 09/28/19 22:00 10/03/19 13:13 Heparin - SQ 5,000 unit TID [facility] Administration Propofol 1,000,000 mcg in 100 mls @ 1.497 mls/hr 09/28/19 13:30 09/30/19 21: 21 Diprivan - IVPB 0 mcg/kg/min TITR [facility] 0 mls/hr Titration Protocol 5 MCG/KG/MIN Fentanyl 500 mcg/ Dextrose 100 mls @ 10 mls/hr 10/01/19 10:45 10/03/19 13:42 IVPB 50 mcg/hr TITR [facility] 10 mls/hr Titration Protocol 50 MCG/HR Midazolam HCl 100 mg in 100 mls @ 7 mls/hr 10/01/19 10:45 10/03/19 13:42 Midazolam 100mg/100ml-0.9%Nacl IVPB 7 mg/hr TITR [facility] 7 mls/hr Infusion Protocol 7 MG/HR Ceftriaxone Sodium 2 gm/ 100 mls @ 200 mls/hr 10/02/19 11:00 10/03/19 10:04 Dextrose IVPB 200 mls/hr DAILY [facility] Administration Protocol Insulin Aspart 1 vial 10/01/19 18:15 10/03/19 11:05 Novolog Vial Sliding Scale - SQ Not Given [facility] Protocol Methylprednisolone Sodium Succinate 40 mg 09/29/19 11:00 10/03/19 10:03 Solu-Medrol - IVPUSH 40 mg DAILY [facility] Administration Mupirocin 1 applic 09/28/19 22:00 10/03/19 10:04 Bactroban Ointment (For Decolonization) - NS 10/03/19 21:59 1 applic BID [facility] Administration ASSESSMENT/PLAN: 79 F with PMH of parkinson's disease, dementia, HTN, HLD, Breast cancer s/p right mastectomy, autoimmune thyroiditis, depression, anxiety, admitted with acute respiratory failure with hypercapnia, hypoxia, acute aspiration pneumonia and acute sepsis. Neuro -Intubated and sedated Midazolam and Propofo -Hx of parkinson and dementia -Continuing Sinamet and Mirtazapine CV -Systolic HTN with BP ins 170s today when off sedation. Labetolo 10 mg Push given, and patient put on sedation afterwards. -Hx of HTN Pulm -Attempted to wean patient today, was off sedation for 3 hours but not able to breathe off of ventilator. -CXR- bilateral infiltrates seen. Right upper lobe consolidation visible -Medrol 40 mg IV Daily -Albuterol Q4H PRN -Duonebs QID PRN -Pulmonology consulted, appreciate recs ID -Aspiration pneumonia with acute hypoxic respiratory failure -Lactic acidosis resolved -WBC initially 36.8, today is 7.1 -Afebrile -Cultures resulted Klebsiella sensitive to Ceftriaxone -Ceftriaxone 2 gram daily -ID consulted, appreciate recs Renal -Renal cysts -Kramer in, Net balance of 2025 -Creatiine 0.8 today, was 1.3 on admission Heme/Onc -Hx of RT breast cancer s/p mastectomy -Hgb of 10.9 today -PT INR 13.5 DVT PPX: Heparin 5000 unit SQ TID GI PPX: Protonix IV 40 Qdaily F: No fluids. E: Monitor CMP N: Tube feed perative Dispo: Continue ICU monitoring Lines: None Visit type - Emergency Visit Emergency Visit: Yes ED Registration Date: 09/28/19 Care time: The patient presented to the Emergency Department on the above date and was hospitalized for further evaluation of their emergent condition. - New Patient This patient is new to me today: Yes Date on this admission: 10/03/19 - Critical Care Critical Care patient: Yes Total Critical Care Time (in minutes): 45 Critical Care Statement: The care of this patient involved high complexity decision making to prevent further life threatening deterioration of the patient 's condition and/or to evaluate & treat vital organ system(s) failure or risk of failure. ATTENDING PHYSICIAN STATEMENT I saw and evaluated the patient. I reviewed the resident's note and discussed the case with the resident. I agree with the resident's findings and plan as documented. SUBJECTIVE: OBJECTIVE: ASSESSMENT AND PLAN:
[2019-10-03] MEDS: PANTOPRAZOLE SODIUM 40 MG VIAL IVPUSH SCH (16:53)
[2019-10-03] MEDS: MIDAZOLAM IN 0.9 % SOD.CHLORID 100 MG/100 ML PLAST..BAG IVPB SCH (21:37)
[2019-10-03] MEDS: FENTANYL INJECTION 500 MCG in DEXTROSE 5%-WATER - 90 ML IVPB SCH (21:38)
[2019-10-03] MEDS: CHLORHEXIDINE GLUCONATE 4% CLEANSER FOR DECOLONIZATION TP SCH (21:38)
[2019-10-04] MEDS ORDERED: fentaNYL CITRATE 250 MCG/5 ML VIAL ONE (02:48)
[2019-10-04] MEDS: HEPARIN NA (PORCINE) 5,000 UNITS/ML 1ML VIAL SQ SCH ×3 (05:34→22:37)
[2019-10-04] MEDS: INSULIN SLIDING SCALE (NOVOLOG) 1 VIAL SQ SCH ×3 (06:14→18:16)
[2019-10-04] MEDS: FENTANYL INJECTION 500 MCG in DEXTROSE 5%-WATER - 90 ML IVPB SCH ×2 (06:14→12:44)
[2019-10-04] MEDS: ALBUTEROL SO4 2.5/IPRATROPIUM 0.5 INH SOL 3 ML VIAL.NEB. NEB SCH ×4 (07:20→20:36)
[2019-10-04 07:27] LABS: BASO % 0.1 % (0-2.0); EOS % 0.1 % (0-4.5); HEMATOCRIT 36.5 % (32.4-45.2); HEMOGLOBIN 11.6 GM/dL (10.7-15.3); LYMPH % 2.6 % (8-40); MCH 28.4 pg (25.7-33.7); MCHC 31.7 g/dl (32.0-36.0); MEAN CELL VOLUME 89.5 fl (80-96); NEUT % 94.2 % (42.8-82.8); PLATELET COUNT 230 K/MM3 (134-434); RBC 4.08 M/mm3 (3.60-5.2); RDW 17.9 % (11.6-15.6)
[2019-10-04 07:57] LABS: ALBUMIN 1.8 g/dl (3.4-5.0); BILIRUBIN,TOTAL 0.1 mg/dL (0.2-1); BLOOD UREA NITROGEN 45.6 mg/dL (7-18); CREATININE 0.8 mg/dL (0.55-1.3); POTASSIUM 5.1 mmol/L (3.5-5.1); TOT PROT 5.4 g/dl (6.4-8.2)
[2019-10-04 08:12] LABS: MAGNESIUM 1.1 mg/dL (1.8-2.4); PHOSPHOROUS 1.5 mg/dL (2.5-4.9)
[2019-10-04] MEDS ORDERED: NAPH,MB-DB/K PH,MBDB POWDER PACKET PO ONE (08:15)
[2019-10-04] MEDS ORDERED: MAGNESIUM SULF 50% (8.12 MEQ/2 ML-1 GM VIAL) IVPB ONE (08:15)
[2019-10-04 09:43] LABS: ANISOCYTOSIS 1+; MACROCYTOSIS 1+; PLATELET ESTIMATE NORMAL
[2019-10-04] MEDS: MIDAZOLAM IN 0.9 % SOD.CHLORID 100 MG/100 ML PLAST..BAG IVPB SCH ×2 (10:15→14:16)
[2019-10-04] MEDS ORDERED: DEXTROSE 5%-WATER 100 ML IVPB ONE (10:27)
[2019-10-04] MEDS: methylPREDNISolone NA SUCC 40 MG/1 ML VIAL IVPUSH SCH (10:42)
[2019-10-04] MEDS: PANTOPRAZOLE SODIUM 40 MG VIAL IVPUSH SCH (10:42)
[2019-10-04] MEDS: CEFTRIAXONE 2 GM in DEXTROSE 5%-WATER 100 ML IVPB SCH (10:42)
--- NOTE | 2019-10-04 11:36 | PN ---
Teaching Attending Note Name of Resident: Cam Bennett ATTENDING PHYSICIAN STATEMENT I saw and evaluated the patient. I reviewed the resident's note and discussed the case with the resident. I agree with the resident's findings and plan as documented. SUBJECTIVE: Patient seen and examined in the ICU. Intubated and sedated. AC mode of vent, 60% FiO2 and PEEP 7. No pressors. Failed wean attempts again due to desaturation and poor mental status. Intake & Output 10/01/19 10/02/19 10/03/19 10/04/19 23:59 23:59 23:59 23:59 Intake Total 3676 2502 1344 1058 Output Total 1650 1900 1700 400 Balance 2025 602 -356 658 Weight 127 lb 9 oz Last Vital Signs Temp Pulse Resp BP Pulse Ox 99 F 104 H 22 H 148/77 92 L 10/04/19 06:00 10/04/19 08:00 10/04/19 08:25 10/04/19 08:00 10/04/19 08:25 Active Medications Albuterol Sulfate (Ventolin 0.083% Nebulizer Soln -) 1 amp NEB Q4H PRN PRN Reason: SHORT OF BREATH/WHEEZING Albuterol/Ipratropium (Duoneb -) 1 amp NEB RQID [facility] Last Admin: 10/04/19 07:20 Dose: 1 amp Calcium Acetate (Phoslo -) 1,334 mg PO TIDCM [facility] Carbidopa/Levodopa (Sinemet *Cr* 25/100 -) 2 combo PO TID@0700,1200,1700 [facility] Chlorhexidine Gluconate (Hibiclens For Decolonization -) 1 applic TP HS [facility] Last Admin: 10/03/19 21:38 Dose: 1 applic Heparin Sodium (Porcine) (Heparin -) 5,000 unit SQ TID [facility] Last Admin: 10/04/19 05:34 Dose: 5,000 unit Propofol (Diprivan -) 1,000,000 mcg in 100 mls @ 1.497 mls/hr IVPB TITR [facility]; Protocol Last Titration: 09/30/19 21:21 Dose: 0 mcg/kg/min, 0 mls/hr Fentanyl 500 mcg/ Dextrose 100 mls @ 10 mls/hr IVPB TITR [facility]; Protocol Last Titration: 10/04/19 10:20 Dose: 0 mcg/hr, 0 mls/hr Midazolam HCl (Midazolam 100mg/100ml-0.9%Nacl) 100 mg in 100 mls @ 7 mls/hr IVPB TITR [facility]; Protocol Last Admin: 10/03/19 21:37 Dose: 7 mg/hr, 7 mls/hr Ceftriaxone Sodium 2 gm/ (Dextrose) 100 mls @ 200 mls/hr IVPB DAILY [facility]; Protocol Last Admin: 10/04/19 10:42 Dose: 200 mls/hr Insulin Aspart (Novolog Vial Sliding Scale -) 1 vial SQ TIDAC [facility]; Protocol Last Admin: 10/04/19 06:14 Dose: Not Given Methylprednisolone Sodium Succinate (Solu-Medrol -) 40 mg IVPUSH DAILY [facility] Last Admin: 10/04/19 10:42 Dose: 40 mg Mirtazapine (Remeron -) 30 mg PO HS@2000 [facility] Pantoprazole Sodium (Protonix Iv) 40 mg IVPUSH DAILY [facility] Last Admin: 10/04/19 10:42 Dose: 40 mg General: Intubated and sedated HEENT: PERRL, (-) JVD CV: RRR Pulm: bibasilar coarse crackles/rhonchi, no wheeze Abd:SNTND +BS Ext: LUE swollen, w/ mulitple bullea. LE trace edema Neuro: Sedated Laboratory Results - last 24 hr 10/03/19 10/04/19 10/04/19 15:56 05:17 06:00 WBC 20.0 H RBC 4.08 Hgb 11.6 Hct 36.5 MCV 89.5 MCH 28.4 MCHC 31.7 L RDW 17.9 H Plt Count 230 MPV 10.0 Absolute Neuts (auto) 18.8 H Neutrophils % 94.2 H Neutrophils % (Manual) 80.6 Band Neutrophils % 5.1 Lymphocytes % 2.6 L D Lymphocytes % (Manual) 4.1 L D Monocytes % 3.0 L Monocytes % (Manual) 10 D Eosinophils % 0.1 D Eosinophils % (Manual) 0.0 Basophils % 0.1 D Basophils % (Manual) 0.0 Myelocytes % (Man) 0 Promyelocytes % (Man) 0 Blast Cells % (Manual) 0 Nucleated RBC % 0 Metamyelocytes 0 Hypochromia 0 Platelet Estimate Normal Polychromasia 0 Poikilocytosis 0 Anisocytosis 1+ Microcytosis 0 Macrocytosis 1+ Sodium Potassium Chloride Carbon Dioxide Anion Gap BUN Creatinine Est GFR (CKD-EPI)AfAm Est GFR (CKD-EPI)NonAf POC Glucometer 176 157 Random Glucose Calcium Phosphorus Magnesium Ferritin Total Bilirubin AST ALT Alkaline Phosphatase Total Protein Albumin 10/04/19 10/04/19 06:00 06:00 WBC RBC Hgb Hct MCV MCH MCHC RDW Plt Count MPV Absolute Neuts (auto) Neutrophils % Neutrophils % (Manual) Band Neutrophils % Lymphocytes % Lymphocytes % (Manual) Monocytes % Monocytes % (Manual) Eosinophils % Eosinophils % (Manual) Basophils % Basophils % (Manual) Myelocytes % (Man) Promyelocytes % (Man) Blast Cells % (Manual) Nucleated RBC % Metamyelocytes Hypochromia Platelet Estimate Polychromasia Poikilocytosis Anisocytosis Microcytosis Macrocytosis Sodium 146 H Potassium 5.1 Chloride 112 H Carbon Dioxide 27 Anion Gap 7 L BUN 45.6 H Creatinine 0.8 Est GFR (CKD-EPI)AfAm 81.84 Est GFR (CKD-EPI)NonAf 70.61 POC Glucometer Random Glucose 142 H Calcium 9.0 Phosphorus 1.5 L Magnesium 1.1 L Ferritin 228.0 Total Bilirubin 0.1 L AST 13 L ALT 27 Alkaline Phosphatase 126 H Total Protein 5.4 L Albumin 1.8 L ASSESSMENT AND PLAN: Acute Hypoxic and Hypercapneic Respiratory Failure Pneumonia likely Aspiration: Klebs Severe Sepsis Lactic Acidosis Asthma HTN Hyperlipidemia Parkinsons Dementia h/o Breast Ca R/O PE - CTA - Sedation vacation with wean trials as tolerated - Nebs - Steroids - Wean FiO2 & PEEP as tolerated - ABX per ID - monitor urine output, creatinine - TFs - DVT/GI prophylaxis - Requires continued ICU monitoring Dr Moody Critical care time spent in reviewing chart, evaluating patient and formulating plan - 36 minutes.
[2019-10-04] MEDS: CALCIUM ACETATE 667 MG CAPSULE (FP) PO SCH ×2 (12:45→17:45)
[2019-10-04] MEDS ORDERED: MIDAZOLAM IN 0.9 % SOD.CHLORID 100 MG/100 ML PLAST..BAG IVPB SCH (12:45)
--- NOTE | 2019-10-04 13:19 | PN ---
Progress Note, Physician Chief Complaint: Patient sedated and intubated, examined at the bedside in ICU. History of Present Illness: This 79 yr old w/f with history of Parkinson's disease, dementia, GERD, hypertension, depression, anxiety, severe microvascular disease of the brain, hyperlipidemia, and autoimmune thyroiditis admitted via ER at [facility] on 09/28/19 with acute respiratory failure with hypoxia and hypercapnia, acute aspiration pneumonia, acute severe sepsis, and acute neutrophilic leukocytosis. - Current Medication List Current Medications: Active Medications Albuterol Sulfate (Ventolin 0.083% Nebulizer Soln -) 1 amp NEB Q4H PRN PRN Reason: SHORT OF BREATH/WHEEZING Albuterol/Ipratropium (Duoneb -) 1 amp NEB RQID [facility] Last Admin: 10/04/19 11:25 Dose: 1 amp Calcium Acetate (Phoslo -) 1,334 mg PO TIDCM [facility] Last Admin: 10/04/19 12:45 Dose: Not Given Carbidopa/Levodopa (Sinemet *Cr* 25/100 -) 2 combo PO TID@0700,1200,1700 [facility] Last Admin: 10/04/19 12:49 Dose: 2 combo Chlorhexidine Gluconate (Hibiclens For Decolonization -) 1 applic TP HS [facility] Last Admin: 10/03/19 21:38 Dose: 1 applic Heparin Sodium (Porcine) (Heparin -) 5,000 unit SQ TID [facility] Last Admin: 10/04/19 05:34 Dose: 5,000 unit Propofol (Diprivan -) 1,000,000 mcg in 100 mls @ 1.497 mls/hr IVPB TITR [facility]; Protocol Last Titration: 09/30/19 21:21 Dose: 0 mcg/kg/min, 0 mls/hr Fentanyl 500 mcg/ Dextrose 100 mls @ 10 mls/hr IVPB TITR [facility]; Protocol Last Admin: 10/04/19 12:44 Dose: Not Given Ceftriaxone Sodium 2 gm/ (Dextrose) 100 mls @ 200 mls/hr IVPB DAILY [facility]; Protocol Last Admin: 10/04/19 10:42 Dose: 200 mls/hr Midazolam HCl (Midazolam 100mg/100ml-0.9%Nacl) 100 mg in 100 mls @ 7 mls/hr IVPB TITR [facility]; Protocol Insulin Aspart (Novolog Vial Sliding Scale -) 1 vial SQ TIDAC [facility]; Protocol Last Admin: 10/04/19 12:57 Dose: Not Given Methylprednisolone Sodium Succinate (Solu-Medrol -) 40 mg IVPUSH DAILY [facility] Last Admin: 10/04/19 10:42 Dose: 40 mg Mirtazapine (Remeron -) 30 mg PO HS@2000 [facility] Pantoprazole Sodium (Protonix Iv) 40 mg IVPUSH DAILY [facility] Last Admin: 10/04/19 10:42 Dose: 40 mg - Objective Vital Signs: Vital Signs Temperature 99 F 10/04/19 06:00 Pulse Rate 104 H 10/04/19 08:00 Respiratory Rate 24 H 10/04/19 12:09 Blood Pressure 148/77 10/04/19 08:00 O2 Sat by Pulse Oximetry (%) 88 L 10/04/19 12:08 Constitutional: Yes: Cachectic Eyes: Yes: Conjunctiva Clear, EOM Intact HENT: Yes: Atraumatic, Normocephalic Neck: Yes: Supple, Trachea Midline Cardiovascular: Yes: Regular Rate and Rhythm, Tachycardia Respiratory: Yes: Mechanically Ventilated, Rhonchi Gastrointestinal: Yes: Normal Bowel Sounds, Soft ...Rectal Exam: Yes: Deferred Genitourinary: Yes: Incontinence Breast(s): Yes: Other (status post right simple mastectomy) Musculoskeletal: Yes: Muscle Weakness (generalized muscle weakness, ?critical care polyneuropathy) Extremities: Yes: Cool, Other (edema and blisters of the LUE) Edema: Yes Edema: LUE: 2+ Peripheral Pulses WNL: Yes Peripheral Pulses: Left Radial: 3+, Right Radial: 3+, Left Doralis Pedis: 2+, Right Dorsalis Pedis: 2+, Left Femoral: 3+, Right Femoral: 3+ Integumentary: Yes: Pressure Ulcer (left heel) Neurological: Yes: Unresponsive Labs: CBC, BMP 10/04/19 06:00 10/04/19 06:00 INR, PTT INR 1.21 (0.82-1.09) 09/28/19 12:45 - ....Imaging Chest X-ray: Report Reviewed Other: Report Reviewed (Lab data reviewed.) Problem List - Problems (1) Acute aspiration pneumonia Assessment/Plan: IV Ceftriaxone and Solumedrol. Code(s): J69.0 - PNEUMONITIS DUE TO INHALATION OF FOOD AND VOMIT (2) Acute respiratory failure with hypoxia Assessment/Plan: On respirator, FiO2 60%, bronchodilators, IV Ceftriaxone and Solumedrol. Code(s): J96.01 - ACUTE RESPIRATORY FAILURE WITH HYPOXIA (3) Sepsis Assessment/Plan: IV Ceftriaxone and Solumedrol. Code(s): A41.9 - SEPSIS, UNSPECIFIED ORGANISM Assessment/Plan Plan: Acute respiratory failure with hypoxia and hypercapnia, acute neutrophilic leukocytosis, severe sepsis, acute aspiration pneumonia, severe muscle weakness, ?critical care polyneuropathy, acute hypomagnesemia, hypophosphatemia, hypoalbuminemia, and hypoproteinemia; IV Ceftriaxone, IV Solumedrol, DVT prophylaxis, bronchodilator therapy prn, eneteral feedings, oral Phoslo, IV magnesium, too weak to be weaned off respirator, discussed clinical condition of the patient with hcp Martha.
--- NOTE | 2019-10-04 14:00 | PN ---
Progress Note, Physician History of Present Illness: REMAINS ON VENTILATOR NO ACUTE DISTRESS AFEBRILE LEUKOCYTOSIS NOTED RECEIVED DOSE OF SOLUMEDROL BC (-) SPUTUM C/S NOTED - Current Medication List Current Medications: Active Medications Albuterol Sulfate (Ventolin 0.083% Nebulizer Soln -) 1 amp NEB Q4H PRN PRN Reason: SHORT OF BREATH/WHEEZING Albuterol/Ipratropium (Duoneb -) 1 amp NEB RQID [facility] Last Admin: 10/04/19 11:25 Dose: 1 amp Calcium Acetate (Phoslo -) 1,334 mg PO TIDCM [facility] Last Admin: 10/04/19 12:45 Dose: Not Given Carbidopa/Levodopa (Sinemet *Cr* 25/100 -) 2 combo PO TID@0700,1200,1700 [facility] Last Admin: 10/04/19 12:49 Dose: 2 combo Chlorhexidine Gluconate (Hibiclens For Decolonization -) 1 applic TP HS [facility] Last Admin: 10/03/19 21:38 Dose: 1 applic Heparin Sodium (Porcine) (Heparin -) 5,000 unit SQ TID [facility] Last Admin: 10/04/19 05:34 Dose: 5,000 unit Propofol (Diprivan -) 1,000,000 mcg in 100 mls @ 1.497 mls/hr IVPB TITR [facility]; Protocol Last Titration: 09/30/19 21:21 Dose: 0 mcg/kg/min, 0 mls/hr Fentanyl 500 mcg/ Dextrose 100 mls @ 10 mls/hr IVPB TITR [facility]; Protocol Last Admin: 10/04/19 12:44 Dose: Not Given Ceftriaxone Sodium 2 gm/ (Dextrose) 100 mls @ 200 mls/hr IVPB DAILY [facility]; Protocol Last Admin: 10/04/19 10:42 Dose: 200 mls/hr Midazolam HCl (Midazolam 100mg/100ml-0.9%Nacl) 100 mg in 100 mls @ 7 mls/hr IVPB TITR [facility]; Protocol Insulin Aspart (Novolog Vial Sliding Scale -) 1 vial SQ TIDAC [facility]; Protocol Last Admin: 10/04/19 12:57 Dose: Not Given Methylprednisolone Sodium Succinate (Solu-Medrol -) 40 mg IVPUSH DAILY [facility] Last Admin: 10/04/19 10:42 Dose: 40 mg Mirtazapine (Remeron -) 30 mg PO HS@1999 [facility] Pantoprazole Sodium (Protonix Iv) 40 mg IVPUSH DAILY [facility] Last Admin: 10/04/19 10:42 Dose: 40 mg - Objective Vital Signs: Vital Signs Temperature 99.1 F 10/04/19 10:00 Pulse Rate 114 H 10/04/19 12:00 Respiratory Rate 24 H 10/04/19 12:09 Blood Pressure 149/79 10/04/19 12:00 O2 Sat by Pulse Oximetry (%) 88 L 10/04/19 12:08 Constitutional: Yes: No Distress Eyes: Yes: Conjunctiva Clear Cardiovascular: Yes: Regular Rate and Rhythm, S1, S2 Respiratory: Yes: Mechanically Ventilated Gastrointestinal: Yes: Normal Bowel Sounds, Soft. No: Tenderness Labs: CBC, BMP 10/04/19 06:00 10/04/19 06:00 INR, PTT INR 1.21 (0.82-1.09) 09/28/19 12:45 Assessment/Plan PROBABLE ASPIRATION PNEUMONIA RESP FAILURE LEUKOCYTOSIS ? STEROID -INDUCED LACTIC ACIDOSIS AZOTEMIA IMPROVED CONTINUE CEFTRIAXONE VENTILATORY SUPPORT
--- NOTE | 2019-10-04 15:24 | PN ---
Physical Exam: SUBJECTIVE: Patient seen and examined in the morning. No acute events overnight. No events on monitoring. Patient is on sedation and intubated, unable to communicate with examiner. OBJECTIVE: Vital Signs Period Temp Pulse Resp BP Sys/Christy Pulse Ox Last 24 Hr 98.2 F-99.1 F 85-114 14-27 119-151/56-81 88-99 GENERAL: Patient was sedated at time of exam. HEAD: Normal with no signs of trauma. EYES: PERRLA. ENT: ET tube in place. NECK: Trachea midline, full range of motion, supple. LUNGS: Ventilator sounds present. HEART: Regular rate and rhythm, S1, S2, without murmurs rubs or gallops. ABDOMEN: Soft, nontender, nondistended, normoactive bowel sounds. EXTREMITIES: 2+ pulses, warm, well-perfused, no edema. SKIN: Warm, dry, normal turgor, no rashes or lesions noted Laboratory Results - last 24 hr 10/03/19 10/04/19 10/04/19 15:56 05:17 06:00 WBC 20.0 H RBC 4.08 Hgb 11.6 Hct 36.5 MCV 89.5 MCH 28.4 MCHC 31.7 L RDW 17.9 H Plt Count 230 MPV 10.0 Absolute Neuts (auto) 18.8 H Neutrophils % 94.2 H Neutrophils % (Manual) 80.6 Band Neutrophils % 5.1 Lymphocytes % 2.6 L D Lymphocytes % (Manual) 4.1 L D Monocytes % 3.0 L Monocytes % (Manual) 10 D Eosinophils % 0.1 D Eosinophils % (Manual) 0.0 Basophils % 0.1 D Basophils % (Manual) 0.0 Myelocytes % (Man) 0 Promyelocytes % (Man) 0 Blast Cells % (Manual) 0 Nucleated RBC % 0 Metamyelocytes 0 Hypochromia 0 Platelet Estimate Normal Polychromasia 0 Poikilocytosis 0 Anisocytosis 1+ Microcytosis 0 Macrocytosis 1+ Sodium Potassium Chloride Carbon Dioxide Anion Gap BUN Creatinine Est GFR (CKD-EPI)AfAm Est GFR (CKD-EPI)NonAf POC Glucometer 176 157 Random Glucose Calcium Phosphorus Magnesium Ferritin Total Bilirubin AST ALT Alkaline Phosphatase Total Protein Albumin 10/04/19 10/04/19 10/04/19 06:00 06:00 12:52 WBC RBC Hgb Hct MCV MCH MCHC RDW Plt Count MPV Absolute Neuts (auto) Neutrophils % Neutrophils % (Manual) Band Neutrophils % Lymphocytes % Lymphocytes % (Manual) Monocytes % Monocytes % (Manual) Eosinophils % Eosinophils % (Manual) Basophils % Basophils % (Manual) Myelocytes % (Man) Promyelocytes % (Man) Blast Cells % (Manual) Nucleated RBC % Metamyelocytes Hypochromia Platelet Estimate Polychromasia Poikilocytosis Anisocytosis Microcytosis Macrocytosis Sodium 146 H Potassium 5.1 Chloride 112 H Carbon Dioxide 27 Anion Gap 7 L BUN 45.6 H Creatinine 0.8 Est GFR (CKD-EPI)AfAm 81.84 Est GFR (CKD-EPI)NonAf 70.61 POC Glucometer 179 Random Glucose 142 H Calcium 9.0 Phosphorus 1.5 L Magnesium 1.1 L Ferritin 228.0 Total Bilirubin 0.1 L AST 13 L ALT 27 Alkaline Phosphatase 126 H Total Protein 5.4 L Albumin 1.8 L Active Medications Generic Name Dose Route Start Last Admin Trade Name Freq PRN Reason Stop Dose Admin Albuterol Sulfate 1 amp 09/29/19 10:51 Ventolin 0.083% Nebulizer Soln - NEB Q4H PRN SHORT OF BREATH/WHEEZING Albuterol/Ipratropium 1 amp 09/29/19 12:00 10/04/19 11:25 Duoneb - NEB 1 amp RQID [facility] Administration Calcium Acetate 1,334 mg 10/04/19 12:00 10/04/19 12:45 Phoslo - PO Not Given TIDCM [facility] Carbidopa/Levodopa 2 combo 10/04/19 12:00 10/04/19 12:49 Sinemet *Cr* 25/100 - PO 2 combo TID@0700,1200,1700 [facility] Administration Chlorhexidine Gluconate 1 applic 09/28/19 22:00 10/03/19 21:38 Hibiclens For Decolonization - TP 1 applic HS [facility] Administration Heparin Sodium (Porcine) 5,000 unit 09/28/19 22:00 10/04/19 14:08 Heparin - SQ 5,000 unit TID [facility] Administration Propofol 1,000,000 mcg in 100 mls @ 1.497 mls/hr 09/28/19 13:30 09/30/19 21: 21 Diprivan - IVPB 0 mcg/kg/min TITR [facility] 0 mls/hr Titration Protocol 5 MCG/KG/MIN Fentanyl 500 mcg/ Dextrose 100 mls @ 10 mls/hr 10/01/19 10:45 10/04/19 12:44 IVPB Not Given TITR [facility] Protocol 50 MCG/HR Ceftriaxone Sodium 2 gm/ 100 mls @ 200 mls/hr 10/02/19 11:00 10/04/19 10:42 Dextrose IVPB 200 mls/hr DAILY [facility] Administration Protocol Midazolam HCl 100 mg in 100 mls @ 7 mls/hr 10/04/19 14:14 10/04/19 10:20 Midazolam 100mg/100ml-0.9%Nacl IVPB 0 mg/hr TITR [facility] 0 mls/hr Titration Protocol 7 MG/HR Insulin Aspart 1 vial 10/01/19 18:15 10/04/19 12:57 Novolog Vial Sliding Scale - SQ Not Given TIDAC [facility] Protocol Methylprednisolone Sodium Succinate 40 mg 09/29/19 11:00 10/04/19 10:42 Solu-Medrol - IVPUSH 40 mg DAILY [facility] Administration Mirtazapine 30 mg 10/04/19 20:00 Remeron - PO HS@2000 [facility] Pantoprazole Sodium 40 mg 10/03/19 16:15 10/04/19 10:42 Protonix Iv IVPUSH 40 mg DAILY [facility] Administration ASSESSMENT/PLAN: 79 F with PMH of parkinson's disease, dementia, HTN, HLD, Breast cancer s/p right mastectomy, autoimmune thyroiditis, depression, anxiety, admitted with acute respiratory failure with hypercapnia, hypoxia, acute aspiration pneumonia and acute sepsis. Neuro -Intubated and sedated Fentanyl and Midazolam drip. -Hx of parkinson and dementia -Continuing Sinamet and Mirtazapine CV -Stable today. -Hx of HTN Pulm -CTA shows no PE. Shows bilateral lower lobe and right upper lobe infiltrate. -CXR- bilateral infiltrates seen. Right upper lobe consolidation visible -Attempted to wean from ventilator. Sedation was stopped for >9 hours. Unable to breathe off of ventilator. -Medrol 40 mg IV Daily -Albuterol Q4H PRN -Duonebs QID PRN -Pulmonology consulted, appreciate recs ID -Aspiration pneumonia with acute hypoxic respiratory failure -Lactic acidosis resolved -Afebrile -Cultures resulted Klebsiella sensitive to Ceftriaxone -Ceftriaxone 2 gram daily -ID consulted, appreciate recs Renal -Renal cysts -Kramer in, Net balance of 2025 -Creatiine 0.8 today, was 1.3 on admission Heme/Onc -Hx of RT breast cancer s/p mastectomy -Hgb of 11.6 today -PT INR 13.5 DVT PPX: Heparin 5000 unit SQ TID GI PPX: Protonix IV 40 Qdaily F: No fluids. E: Monitor CMP N: Tube feed perative Dispo: Continue ICU monitoring Lines: None Visit type - Emergency Visit Emergency Visit: Yes ED Registration Date: 09/28/19 Care time: The patient presented to the Emergency Department on the above date and was hospitalized for further evaluation of their emergent condition. - New Patient This patient is new to me today: No - Critical Care Critical Care patient: Yes Total Critical Care Time (in minutes): 45 Critical Care Statement: The care of this patient involved high complexity decision making to prevent further life threatening deterioration of the patient 's condition and/or to evaluate & treat vital organ system(s) failure or risk of failure. ATTENDING PHYSICIAN STATEMENT I saw and evaluated the patient. I reviewed the resident's note and discussed the case with the resident. I agree with the resident's findings and plan as documented. SUBJECTIVE: OBJECTIVE: ASSESSMENT AND PLAN:
[2019-10-04] MEDS: MIRTAZAPINE 15 MG TABLET (FP) PO SCH (21:12)
[2019-10-04] MEDS: CHLORHEXIDINE GLUCONATE 4% CLEANSER FOR DECOLONIZATION TP SCH (22:37)
[2019-10-05] MEDS: INSULIN SLIDING SCALE (NOVOLOG) 1 VIAL SQ SCH ×2 (06:05→10:39)
[2019-10-05] MEDS: HEPARIN NA (PORCINE) 5,000 UNITS/ML 1ML VIAL SQ SCH ×3 (06:05→21:49)
[2019-10-05 08:12] LABS: ALBUMIN 1.6 g/dl (3.4-5.0); BILIRUBIN,TOTAL 0.1 mg/dL (0.2-1); CALCIUM 8.8 mg/dL (8.5-10.1); CREATININE 0.8 mg/dL (0.55-1.3); MAGNESIUM 2.6 mg/dL (1.8-2.4); PHOSPHOROUS 2.7 mg/dL (2.5-4.9); POTASSIUM 5.2 mmol/L (3.5-5.1); TOT PROT 5.3 g/dl (6.4-8.2)
[2019-10-05] MEDS: ALBUTEROL SO4 2.5/IPRATROPIUM 0.5 INH SOL 3 ML VIAL.NEB. NEB SCH ×3 (08:18→20:00)
[2019-10-05 08:31] LABS: BASO % 0.2 % (0-2.0); HEMATOCRIT 34.8 % (32.4-45.2); HEMOGLOBIN 10.8 GM/dL (10.7-15.3); LYMPH % 2.5 % (8-40); MCHC 31.1 g/dl (32.0-36.0); MEAN CELL VOLUME 90.2 fl (80-96); MEAN PLT VOLUME 10.1 fl (7.5-11.1); MONO % 2.6 % (3.8-10.2); NEUT % 94.7 % (42.8-82.8); PLATELET COUNT 250 K/MM3 (134-434); RBC 3.86 M/mm3 (3.60-5.2); RDW 17.9 % (11.6-15.6); WHITE BLOOD COUNT 26.4 K/mm3 (4.0-10.0)
[2019-10-05] MEDS ORDERED: DEXTROSE 5%-WATER 100 ML IVPB ONE (09:08)
[2019-10-05] MEDS: PANTOPRAZOLE SODIUM 40 MG VIAL IVPUSH SCH (09:11)
[2019-10-05] MEDS: CEFTRIAXONE 2 GM in DEXTROSE 5%-WATER 100 ML IVPB SCH (09:11)
[2019-10-05] MEDS: methylPREDNISolone NA SUCC 40 MG/1 ML VIAL IVPUSH SCH (09:11)
[2019-10-05] MEDS: CALCIUM ACETATE 667 MG CAPSULE (FP) PO SCH ×3 (09:12→17:14)
--- NOTE | 2019-10-05 09:17 | PN ---
Progress Note (short form) - Note Progress Note: sedation off, remains intubated she is unresponsive s/p head ct- results pending Vital Signs Period Temp Pulse Resp BP Sys/Christy Pulse Ox Last 24 Hr 99 F-99.6 F 89-114 18-28 118-163/63-83 88-99 cor-rrr lungs decreased bs at bases abd soft,nt ext no edema flaccid CBC, BMP 10/05/19 05:25 10/05/19 05:25 Microbiology 09/28/19 12:40 Blood - Peripheral Venous Blood Culture - Final NO GROWTH AFTER 5 DAYS INCUBATION 09/28/19 12:48 Blood - Peripheral Venous Blood Culture - Final NO GROWTH AFTER 5 DAYS INCUBATION 09/28/19 23:00 Sputum - Endotrachea Suction/Ventilator Gram Stain - Final 09/28/19 23:00 Sputum - Endotrachea Suction/Ventilator Sputum Culture - Final Klebsiella Pneumoniae Yeast Like Organism a/p resp failure presumed aspiration pneumonia day #7 antibiotics, day #4 ceftriaxone f/u head ct leukocytosis repeat blood cultures send cdiff if she has diarrhea d/w ICU resident
[2019-10-05] MEDS: PROPOFOL 1,000,000 MCG/100 ML VIAL IVPB SCH ×3 (11:58→21:32)
[2019-10-05] MEDS: SODIUM CHLORIDE 0.45% 1,000 ML IV SCH (12:11)
[2019-10-05 12:12] LABS: ANISOCYTOSIS 0; MACROCYTOSIS 0; PLATELET ESTIMATE NORMAL
[2019-10-05] MEDS: FENTANYL INJECTION 500 MCG in DEXTROSE 5%-WATER - 90 ML IVPB SCH (12:13)
[2019-10-05] MEDS ORDERED: PT OWN MED DRAWER 7, Y5N ONE ×3 (12:46→16:11)
--- NOTE | 2019-10-05 13:06 | PN ---
Progress Note, Physician Chief Complaint: I examined the patient at the bedside in ICU, off sedation, intubated. 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 - Current Medication List Current Medications: Active Medications Albuterol Sulfate (Ventolin 0.083% Nebulizer Soln -) 1 amp NEB Q4H PRN PRN Reason: SHORT OF BREATH/WHEEZING Albuterol/Ipratropium (Duoneb -) [address] [facility] Last Admin: 10/05/19 08:18 Dose: 1 amp Calcium Acetate (Phoslo -) 1,[address] [facility] Last Admin: 10/05/19 12:12 Dose: Not Given Carbidopa/Levodopa (Sinemet *Cr* 25/100 -) 2 combo PO TID@0700,1200,1700 [facility] Last Admin: 10/05/19 12:47 Dose: 2 combo Chlorhexidine Gluconate (Hibiclens For Decolonization -) [address] [facility] Last Admin: 10/04/19 22:37 Dose: 1 applic Fentanyl (Sublimaze Injection -) 100 mcg IVPUSH Q6H PRN PRN Reason: PAIN Stop: 10/06/19 11:23 Heparin Sodium (Porcine) (Heparin -) 5,[address] [facility] Last Admin: 10/05/19 06:05 Dose: 5,000 unit Propofol (Diprivan -) 1,000,000 mcg in 100 mls @ 1.497 mls/hr IVPB TITR [facility]; Protocol Last Admin: 10/05/19 11:58 Dose: 20 mcg/kg/min, 5.987 mls/hr Fentanyl 500 mcg/ Dextrose 100 mls @ 10 mls/hr IVPB TITR [facility]; Protocol Last Admin: 10/05/19 12:13 Dose: Not Given Ceftriaxone Sodium 2 gm/ (Dextrose) 100 mls @ 200 mls/hr IVPB DAILY [facility]; Protocol Last Admin: 10/05/19 09:11 Dose: 200 mls/hr Midazolam HCl (Midazolam 100mg/100ml-0.9%Nacl) 100 mg in 100 mls @ 7 mls/hr IVPB TITR [facility]; Protocol Last Titration: 10/04/19 10:20 Dose: 0 mg/hr, 0 mls/hr Sodium Chloride (1/2 Normal Saline) 1,000 mls @ 75 mls/hr IV ASDIR [facility] Last Admin: 10/05/19 12:11 Dose: 75 mls/hr Insulin Aspart (Novolog Vial Sliding Scale -) [address] [facility]; Protocol Last Admin: 10/05/19 10:39 Dose: Not Given Methylprednisolone Sodium Succinate (Solu-Medrol -) [address] [facility] Last Admin: 10/05/19 09:11 Dose: 40 mg Mirtazapine (Remeron -) 30 mg PO HS@1999 [facility] Last Admin: 10/04/19 21:12 Dose: 30 mg Pantoprazole Sodium (Protonix Iv) [address] [facility] Last Admin: 10/05/19 09:11 Dose: 40 mg - Objective Vital Signs: Vital Signs Temperature 100.2 F H 10/05/19 10:00 Pulse Rate 94 H 10/05/19 12:00 Respiratory Rate 25 H 10/05/19 12:41 Blood Pressure 135/66 10/05/19 12:00 O2 Sat by Pulse Oximetry (%) 99 10/05/19 08:17 Constitutional: Yes: Cachectic Eyes: Yes: Conjunctiva Clear, EOM Intact HENT: Yes: Atraumatic, Normocephalic Neck: Yes: Supple, Trachea Midline Cardiovascular: Yes: Regular Rate and Rhythm Respiratory: Yes: CTA Bilaterally, Mechanically Ventilated Gastrointestinal: Yes: Normal Bowel Sounds, Soft ...Rectal Exam: Yes: Deferred Genitourinary: Yes: Incontinence Breast(s): Yes: Other (status post right simple mastectomy) Musculoskeletal: Yes: Muscle Weakness (?critical care polyneuropathy) Extremities: Yes: Cool Edema: Yes Edema: LUE: 1+, RUE: 1+ Peripheral Pulses WNL: Yes Peripheral Pulses: Left Radial: 3+, Right Radial: 3+, Left Doralis Pedis: 2+, Right Dorsalis Pedis: 2+, Left Femoral: 3+, Right Femoral: 3+ Integumentary: Yes: Pressure Ulcer Neurological: Yes: Unresponsive, Weakness ( ?critical care polyneuropathy) Labs: CBC, BMP 10/05/19 05:25 10/05/19 05:25 INR, PTT INR 1.21 (0.82-1.09) 09/28/19 12:45 - ....Imaging Cat Scan: Report Reviewed (chronic lacunar stroke in the thalamus) Other: Report Reviewed (Lab data reviewed, ID note read and appreciated.) Problem List - Problems (1) Acute aspiration pneumonia Assessment/Plan: IV Ceftriaxone and Solumedrol. Code(s): J69.0 - PNEUMONITIS DUE TO INHALATION OF FOOD AND VOMIT (2) Acute respiratory failure with hypoxia Assessment/Plan: On respirator, bronchodilator therapy prn, IV Ceftriaxone and Solumedrol. Code(s): J96.01 - ACUTE RESPIRATORY FAILURE WITH HYPOXIA (3) Sepsis Assessment/Plan: IV Ceftriaxone and Solumedrol. Code(s): A41.9 - SEPSIS, UNSPECIFIED ORGANISM Assessment/Plan Plan: Acute respiratory failure with hypoxia and hypercapnia, acute aspiration pneumonia, acute sepsis, acute neutrophilic leukocytosis, fever; IV Ceftriaxone , IV Solumedrol, enteral nutrition, DVT prophylaxis, bronchodilator therapy prn , clinical condition critical, discussed clinical condition of the patient with hcp Martha.
--- NOTE | 2019-10-05 13:10 | PN ---
Teaching Attending Note Name of Resident: Annel Jimenez ATTENDING PHYSICIAN STATEMENT I saw and evaluated the patient. I reviewed the resident's note and discussed the case with the resident. I agree with the resident's findings and plan as documented. SUBJECTIVE: Pt seen and examined in the ICU. Remains intubated, poorly responsive off sedation. Tachypneic with some accessory muscle use. OBJECTIVE: Vital Signs Period Temp Pulse Resp BP Sys/Christy Pulse Ox Last 24 Hr 99 F-100.2 F 89-113 18-28 118-163/63-83 96-99 Intake & Output 10/02/19 10/03/19 10/04/19 10/05/19 23:59 23:59 23:59 23:59 Intake Total 2502 1344 2187 1024 Output Total 1900 1700 1450 800 Balance 602 -356 737 224 Weight 57.861 kg 54.941 kg Gen: intubated, poorly responsive, tachypneic Heart: RRR Lung: scattered rhonchi Abd: soft, nontender Ext: no edema CBC, BMP 10/05/19 05:25 10/05/19 05:25 Active Medications Albuterol Sulfate (Ventolin 0.083% Nebulizer Soln -) 1 amp NEB Q4H PRN PRN Reason: SHORT OF BREATH/WHEEZING Albuterol/Ipratropium (Duoneb -) 1 amp NEB RQID [facility] Last Admin: 10/05/19 08:18 Dose: 1 amp Calcium Acetate (Phoslo -) 1,334 mg PO TIDCM [facility] Last Admin: 10/05/19 12:12 Dose: Not Given Carbidopa/Levodopa (Sinemet *Cr* 25/100 -) 2 combo PO TID@0700,1200,1700 [facility] Last Admin: 10/05/19 12:47 Dose: 2 combo Chlorhexidine Gluconate (Hibiclens For Decolonization -) 1 applic TP HS [facility] Last Admin: 10/04/19 22:37 Dose: 1 applic Fentanyl (Sublimaze Injection -) 100 mcg IVPUSH Q6H PRN PRN Reason: PAIN Stop: 10/06/19 11:23 Heparin Sodium (Porcine) (Heparin -) 5,000 unit SQ TID [facility] Last Admin: 10/05/19 06:05 Dose: 5,000 unit Propofol (Diprivan -) 1,000,000 mcg in 100 mls @ 1.497 mls/hr IVPB TITR [facility]; Protocol Last Admin: 10/05/19 11:58 Dose: 20 mcg/kg/min, 5.987 mls/hr Fentanyl 500 mcg/ Dextrose 100 mls @ 10 mls/hr IVPB TITR [facility]; Protocol Last Admin: 10/05/19 12:13 Dose: Not Given Ceftriaxone Sodium 2 gm/ (Dextrose) 100 mls @ 200 mls/hr IVPB DAILY [facility]; Protocol Last Admin: 10/05/19 09:11 Dose: 200 mls/hr Midazolam HCl (Midazolam 100mg/100ml-0.9%Nacl) 100 mg in 100 mls @ 7 mls/hr IVPB TITR [facility]; Protocol Last Titration: 10/04/19 10:20 Dose: 0 mg/hr, 0 mls/hr Sodium Chloride (1/2 Normal Saline) 1,000 mls @ 75 mls/hr IV ASDIR [facility] Last Admin: 10/05/19 12:11 Dose: 75 mls/hr Insulin Aspart (Novolog Vial Sliding Scale -) 1 vial SQ TIDAC [facility]; Protocol Last Admin: 10/05/19 10:39 Dose: Not Given Methylprednisolone Sodium Succinate (Solu-Medrol -) 40 mg IVPUSH DAILY [facility] Last Admin: 10/05/19 09:11 Dose: 40 mg Mirtazapine (Remeron -) 30 mg PO HS@1999 [facility] Last Admin: 10/04/19 21:12 Dose: 30 mg Pantoprazole Sodium (Protonix Iv) 40 mg IVPUSH DAILY [facility] Last Admin: 10/05/19 09:11 Dose: 40 mg ASSESSMENT AND PLAN: Acute Hypoxic and Hypercapneic Respiratory Failure Pneumonia likely Aspiration Severe Sepsis Lactic Acidosis Asthma HTN Hyperlipidemia Parkinsons Dementia h/o Breast Ca - continue antibiotics - empiric medrol - inhaled bronchodilators - taper FiO2, PEEP to keep SpO2 >90% - IVF - monitor urine output, creatinine - sedation for comfort/respiratory effort - daily sedation vacations to assess mental status - spontaneous breathing trials as tolerated when mental status improved - enteral feeds - DVT/GI prophylaxis - continue ICU monitoring - continue discussions regarding goals of care critical care time spent in reviewing chart, evaluating patient and formulating plan 35 min
[2019-10-05] MEDS: ACETAMINOPHEN 650 MG/20.3 ML ORAL SOLUTION (CUPS) GT PRN (15:56)
--- NOTE | 2019-10-05 16:15 | PN ---
Physical Exam: SUBJECTIVE: Patient seen and examined pt seen at bedside, intubated and sedated had been off sedation for 48 hours with no change in mental status. became hypoxic on vent FIO2 yesterday increased to 100%. adjusted this a.m to 60% ct heade and ches no new findings OBJECTIVE: Vital Signs Period Temp Pulse Resp BP Sys/Christy Pulse Ox Last 24 Hr 99 F-102.3 F 89-99 18-28 118-163/63-83 96-99 GEN: sedated HEENT:normocephalic, atraumatic CV: S1/S2, RRR, no m/r/g LUNG: rhonchi and crackles GI: soft, nondistended, +BS EXTREMITIES: 2+ distal pulses. No LE edema. No obvious deformities of all extremities. SKIN: warm, dry, normal turgor NEURO: sedated and intubated Laboratory Results - last 24 hr 10/04/19 10/05/19 10/05/19 18:07 04:55 05:25 WBC 26.4 H RBC 3.86 Hgb 10.8 Hct 34.8 MCV 90.2 MCH 28.0 MCHC 31.1 L RDW 17.9 H Plt Count 250 MPV 10.1 Absolute Neuts (auto) 25.0 H Neutrophils % 94.7 H Neutrophils % (Manual) 92.1 H Band Neutrophils % 0.0 Lymphocytes % 2.5 L Lymphocytes % (Manual) 0.0 L Monocytes % 2.6 L Monocytes % (Manual) 3 L Eosinophils % 0.0 D Eosinophils % (Manual) 1.0 D Basophils % 0.2 Basophils % (Manual) 0.0 Myelocytes % (Man) 1 D Promyelocytes % (Man) 0 Blast Cells % (Manual) 0 Nucleated RBC % 0 Metamyelocytes 2 D Hypochromia 0 Platelet Estimate Normal Polychromasia 0 Poikilocytosis 0 Anisocytosis 0 Microcytosis 0 Macrocytosis 0 Sodium Potassium Chloride Carbon Dioxide Anion Gap BUN Creatinine Est GFR (CKD-EPI)AfAm Est GFR (CKD-EPI)NonAf POC Glucometer 178 183 Random Glucose Calcium Phosphorus Magnesium Total Bilirubin AST ALT Alkaline Phosphatase Total Protein Albumin TSH Free T4 10/05/19 10/05/19 05:25 10:34 WBC RBC Hgb Hct MCV MCH MCHC RDW Plt Count MPV Absolute Neuts (auto) Neutrophils % Neutrophils % (Manual) Band Neutrophils % Lymphocytes % Lymphocytes % (Manual) Monocytes % Monocytes % (Manual) Eosinophils % Eosinophils % (Manual) Basophils % Basophils % (Manual) Myelocytes % (Man) Promyelocytes % (Man) Blast Cells % (Manual) Nucleated RBC % Metamyelocytes Hypochromia Platelet Estimate Polychromasia Poikilocytosis Anisocytosis Microcytosis Macrocytosis Sodium 146 H Potassium 5.2 H Chloride 109 H Carbon Dioxide 31 Anion Gap 6 L BUN 49.0 H Creatinine 0.8 Est GFR (CKD-EPI)AfAm 81.84 Est GFR (CKD-EPI)NonAf 70.61 POC Glucometer 149 Random Glucose 148 H Calcium 8.8 Phosphorus 2.7 Magnesium 2.6 H Total Bilirubin 0.1 L AST 17 ALT 18 Alkaline Phosphatase 149 H Total Protein 5.3 L Albumin 1.6 L TSH 0.10 L Free T4 0.70 L Active Medications Generic Name Dose Route Start Last Admin Trade Name Freq PRN Reason Stop Dose Admin Acetaminophen 650 mg 10/05/19 14:54 10/05/19 15:56 Tylenol Oral Solution - GT 650 mg Q4H PRN Administration FEVER Albuterol Sulfate 1 amp 09/29/19 10:51 Ventolin 0.083% Nebulizer Soln - NEB Q4H PRN SHORT OF BREATH/WHEEZING Albuterol/Ipratropium 1 amp 09/29/19 12:00 10/05/19 08:18 Duoneb - NEB 1 amp RQID [facility] Administration Calcium Acetate 1,334 mg 10/04/19 12:00 10/05/19 12:12 Phoslo - PO Not Given TIDCM [facility] Carbidopa/Levodopa 2 combo 10/04/19 12:00 10/05/19 12:47 Sinemet *Cr* 25/100 - PO 2 combo TID@0700,1200,1700 [facility] Administration Chlorhexidine Gluconate 1 applic 09/28/19 22:00 10/04/19 22:37 Hibiclens For Decolonization - TP 1 applic HS [facility] Administration Fentanyl 100 mcg 10/05/19 11:24 Sublimaze Injection - IVPUSH 10/06/19 11:23 Q6H PRN PAIN Heparin Sodium (Porcine) 5,000 unit 09/28/19 22:00 10/05/19 13:17 Heparin - SQ 5,000 unit TID [facility] Administration Propofol 1,000,000 mcg in 100 mls @ 1.497 mls/hr 09/28/19 13:30 10/05/19 11: 58 Diprivan - IVPB 20 mcg/kg/min TITR [facility] 5.987 mls/hr Administration Protocol 5 MCG/KG/MIN Ceftriaxone Sodium 2 gm/ 100 mls @ 200 mls/hr 10/02/19 11:00 10/05/19 09:11 Dextrose IVPB 200 mls/hr DAILY [facility] Administration Protocol Midazolam HCl 100 mg in 100 mls @ 7 mls/hr 10/04/19 14:14 10/04/19 10:20 Midazolam 100mg/100ml-0.9%Nacl IVPB 0 mg/hr TITR [facility] 0 mls/hr Titration Protocol 7 MG/HR Sodium Chloride 1,000 mls @ 75 mls/hr 10/05/19 11:30 10/05/19 12:11 1/2 Normal Saline IV 75 mls/hr ASDIR [facility] Administration Insulin Aspart 1 vial 10/01/19 18:15 10/05/19 10:39 Novolog Vial Sliding Scale - SQ Not Given TIDAC [facility] Protocol Methylprednisolone Sodium Succinate 40 mg 09/29/19 11:00 10/05/19 09:11 Solu-Medrol - IVPUSH 40 mg DAILY [facility] Administration Mirtazapine 30 mg 10/04/19 20:00 10/04/19 21:12 Remeron - PO 30 mg HS@2000 [facility] Administration Pantoprazole Sodium 40 mg 10/03/19 16:15 10/05/19 09:11 Protonix Iv IVPUSH 40 mg DAILY [facility] Administration ASSESSMENT/PLAN: 79 y/o F extensive medical hx admitted for sepsis and acute respiratory failure NEURO: Parkinsons Dementia intubated and sedated CV: HTN, HLD -IVF PULM:acute hypoxic and hypercapneic respiratory failure,aspiration PNa, Asthma -goal O2 sat > 90% taper PEEP, FIO2 to achieve this -empiric medrol -inhaled bronchodilators -sedated with propofol drip and fentanyl PRN RENAL: bubn/cr monitoring and I and O"s FENGI:Lactic acidosis ENDO: ID:Sepsis -continue antibiotics Heme/Onc: hx of breast cancer DVT PPX:Heparin SQ tid 5000 units LINES/TUBES/DRAINS: Visit type - Emergency Visit Emergency Visit: Yes ED Registration Date: 09/28/19 Care time: The patient presented to the Emergency Department on the above date and was hospitalized for further evaluation of their emergent condition. - New Patient This patient is new to me today: No - Critical Care Critical Care patient: No - Discharge Referral Referred to [facility] No ATTENDING PHYSICIAN STATEMENT I saw and evaluated the patient. I reviewed the resident's note and discussed the case with the resident. I agree with the resident's findings and plan as documented. SUBJECTIVE: OBJECTIVE: ASSESSMENT AND PLAN:
[2019-10-05 17:59] LABS: EPI CELLS 28.8 /HPF (0-5/HPF); HYALINE CASTS 142 /lpf (0-8); URINE APPEARANCE TURBID; URINE BILIRUBIN NEGATIVE (NEGATIVE); URINE COLOR YELLOW; URINE GLUCOSE (UA) NEGATIVE (NEGATIVE); URINE KETONE NEGATIVE (NEGATIVE); URINE LEUK ESTERASE 1+ (NEGATIVE); URINE NITRITE NEGATIVE (NEGATIVE); URINE PROTEIN 1+ (NEGATIVE); URINE UROBILINOGEN 0.2 mg/dL (0.2-1.0); URINE WBC 8 /hpf (0-5)
[2019-10-05 18:46] LABS: URINE BACTERIA F /hpf (NEGATIVE); URINE RBC 15-20 /hpf (0-4); YEAST NEGATIVE (NEGATIVE)
[2019-10-05] MEDS: MIDAZOLAM IN 0.9 % SOD.CHLORID 100 MG/100 ML PLAST..BAG IVPB SCH (21:34)
[2019-10-05] MEDS: MIRTAZAPINE 15 MG TABLET (FP) PO SCH (21:49)
[2019-10-05] MEDS: CHLORHEXIDINE GLUCONATE 4% CLEANSER FOR DECOLONIZATION TP SCH (21:49)
[2019-10-06] MEDS: PROPOFOL 1,000,000 MCG/100 ML VIAL IVPB SCH ×2 (00:01→09:18)
[2019-10-06] MEDS: SODIUM CHLORIDE 0.45% 1,000 ML IV SCH ×2 (00:02→14:26)
[2019-10-06] MEDS: HEPARIN NA (PORCINE) 5,000 UNITS/ML 1ML VIAL SQ SCH ×3 (06:11→22:09)
[2019-10-06 06:51] LABS: EOS % 2.2 % (0-4.5); HEMATOCRIT 30.3 % (32.4-45.2); HEMOGLOBIN 9.8 GM/dL (10.7-15.3); LYMPH % 4.5 % (8-40); MCH 28.5 pg (25.7-33.7); MCHC 32.4 g/dl (32.0-36.0); MEAN CELL VOLUME 87.8 fl (80-96); MEAN PLT VOLUME 9.2 fl (7.5-11.1); MONO % 2.5 % (3.8-10.2); NEUT % 90.8 % (42.8-82.8); PLATELET COUNT 241 K/MM3 (134-434); RBC 3.46 M/mm3 (3.60-5.2); RDW 17.3 % (11.6-15.6); WHITE BLOOD COUNT 19.5 K/mm3 (4.0-10.0)
[2019-10-06] MEDS: ACETAMINOPHEN 650 MG/20.3 ML ORAL SOLUTION (CUPS) GT PRN (07:00)
[2019-10-06 07:20] LABS: ALBUMIN 1.5 g/dl (3.4-5.0); BILIRUBIN,TOTAL 0.2 mg/dL (0.2-1); BLOOD UREA NITROGEN 48.7 mg/dL (7-18); CALCIUM 8.1 mg/dL (8.5-10.1); CREATININE 0.9 mg/dL (0.55-1.3); TOT PROT 4.9 g/dl (6.4-8.2)
[2019-10-06] MEDS: ALBUTEROL SO4 2.5/IPRATROPIUM 0.5 INH SOL 3 ML VIAL.NEB. NEB SCH ×4 (08:26→20:55)
[2019-10-06] MEDS ORDERED: DEXTROSE 5%-WATER 100 ML IVPB ONE (09:13)
[2019-10-06] MEDS ORDERED: PT OWN MED DRAWER 7, Y5N ONE (09:13)
[2019-10-06 09:15] LABS: ANISOCYTOSIS 0; MACROCYTOSIS 0; PLATELET ESTIMATE NORMAL
[2019-10-06] MEDS: CEFTRIAXONE 2 GM in DEXTROSE 5%-WATER 100 ML IVPB SCH (09:19)
[2019-10-06] MEDS: PANTOPRAZOLE SODIUM 40 MG VIAL IVPUSH SCH (09:19)
[2019-10-06] MEDS: CALCIUM ACETATE 667 MG CAPSULE (FP) PO SCH ×3 (09:19→18:55)
[2019-10-06] MEDS: methylPREDNISolone NA SUCC 40 MG/1 ML VIAL IVPUSH SCH (09:20)
--- NOTE | 2019-10-06 11:17 | PN ---
Progress Note, Physician Chief Complaint: Patient examined at the bedside in ICU, intubated. History of Present Illness: This 79 yr old w/f with history of Parkinson's disease, dementia, chronic lacunar stroke of the thalamus, depression, anxiety, autoimmune thyroiditis, hypertension, and status post simple right mastectomy admitted via ER at [facility] on 09/28/19 with acute respiratory failure with hypoxia and hypercapnia, acute aspiration pneumonia, acute sepsis, and acute neutrophilic leukocytosis. - Current Medication List Current Medications: Active Medications Acetaminophen (Tylenol Oral Solution -) 650 mg GT Q4H PRN PRN Reason: FEVER Last Admin: 10/06/19 07:00 Dose: 650 mg Albuterol Sulfate (Ventolin 0.083% Nebulizer Soln -) 1 amp NEB Q4H PRN PRN Reason: SHORT OF BREATH/WHEEZING Albuterol/Ipratropium (Duoneb -) 1 amp NEB RQID REPLACED BY [facility] Last Admin: 10/06/19 08:26 Dose: 1 amp Calcium Acetate (Phoslo -) 1,334 mg PO TIDCM REPLACED BY [facility] Last Admin: 10/06/19 09:19 Dose: Not Given Carbidopa/Levodopa (Sinemet *Cr* 25/100 -) 2 combo PO TID@0700,1200,1700 REPLACED BY [facility] Last Admin: 10/06/19 06:11 Dose: 2 combo Chlorhexidine Gluconate (Hibiclens For Decolonization -) 1 applic TP HS REPLACED BY [facility] Last Admin: 10/05/19 21:49 Dose: 1 applic Heparin Sodium (Porcine) (Heparin -) 5,000 unit SQ TID REPLACED BY [facility] Last Admin: 10/06/19 06:11 Dose: 5,000 unit Ceftriaxone Sodium 2 gm/ (Dextrose) 100 mls @ 200 mls/hr IVPB DAILY REPLACED BY [facility]; Protocol Last Admin: 10/06/19 09:19 Dose: 200 mls/hr Sodium Chloride (1/2 Normal Saline) 1,000 mls @ 75 mls/hr IV ASDIR REPLACED BY [facility] Last Admin: 10/06/19 00:02 Dose: 75 mls/hr Methylprednisolone Sodium Succinate (Solu-Medrol -) 40 mg IVPUSH DAILY REPLACED BY [facility] Last Admin: 10/06/19 09:20 Dose: 40 mg Mirtazapine (Remeron -) 30 mg PO HS@2000 REPLACED BY [facility] Last Admin: 10/05/19 21:49 Dose: 30 mg Pantoprazole Sodium (Protonix Iv) 40 mg IVPUSH DAILY [facility] Last Admin: 10/06/19 09:19 Dose: 40 mg - Objective Vital Signs: Vital Signs Temperature 98.8 F 10/06/19 10:00 Pulse Rate 74 10/06/19 10:00 Respiratory Rate 31 H 10/06/19 10:00 Blood Pressure 104/58 L 10/06/19 10:00 O2 Sat by Pulse Oximetry (%) 99 10/06/19 08:00 Constitutional: Yes: Cachectic Eyes: Yes: Conjunctiva Clear, EOM Intact HENT: Yes: Atraumatic, Normocephalic Neck: Yes: Supple, Trachea Midline Cardiovascular: Yes: Regular Rate and Rhythm Respiratory: Yes: CTA Bilaterally, Mechanically Ventilated, Rhonchi Gastrointestinal: Yes: Normal Bowel Sounds, Soft ...Rectal Exam: Yes: Deferred Genitourinary: Yes: Incontinence Breast(s): Yes: Other (status post right simple mastectomy) Musculoskeletal: Yes: Muscle Weakness (?critical care polyneuropathy) Extremities: Yes: Cool Edema: Yes Edema: LUE: 2+ (hand) Peripheral Pulses WNL: Yes Peripheral Pulses: Left Radial: 3+, Right Radial: 3+, Left Doralis Pedis: 2+, Right Dorsalis Pedis: 2+, Left Femoral: 3+, Right Femoral: 3+ Integumentary: Yes: Pressure Ulcer Neurological: Yes: Weakness (?critical care polyneuropathy) Labs: CBC, BMP 10/06/19 05:45 10/06/19 05:45 INR, PTT INR 1.21 (0.82-1.09) 09/28/19 12:45 - ....Imaging Chest X-ray: Report Reviewed Other: Report Reviewed (Lab data reviewed) Problem List - Problems (1) Acute aspiration pneumonia Assessment/Plan: IV Ceftriaxone and Solumedrol. Code(s): J69.0 - PNEUMONITIS DUE TO INHALATION OF FOOD AND VOMIT (2) Acute respiratory failure with hypoxia Assessment/Plan: On respirator with FiO2 50%, bronchodilators prn, IV Ceftriaxone and Solumedrol. Code(s): J96.01 - ACUTE RESPIRATORY FAILURE WITH HYPOXIA (3) Sepsis Assessment/Plan: IV Ceftriaxone and Solumedrol. Code(s): A41.9 - SEPSIS, UNSPECIFIED ORGANISM Assessment/Plan Plan: Acute respiratory failure with hypoxia and hypercapnia, acute aspiration pneumonia, acute sepsis, ?critical care polyneuropathy, generalized muscle weakness; IV Ceftriaxone and Solumedrol, bronchodilator therapy prn, enteral nutrition, discussed clinical condition of the patient with hcp Martha.
--- NOTE | 2019-10-06 11:35 | PN ---
Teaching Attending Note Name of Resident: Annel Jimenez ATTENDING PHYSICIAN STATEMENT I saw and evaluated the patient. I reviewed the resident's note and discussed the case with the resident. I agree with the resident's findings and plan as documented. SUBJECTIVE: Patient seen and examined in the ICU. Remains intubated, poorly responsive but on low dose propofol. AC Mode of vent, 60% FiO2. No pressors. Did not tolerate wean yesterday. OBJECTIVE: Intake & Output 10/03/19 10/04/19 10/05/19 10/06/19 23:59 23:59 23:59 23:59 Intake Total 1344 2187 2356 1390 Output Total 1700 1450 2050 800 Balance -356 737 306 590 Weight 127 lb 9 oz 121 lb 2 oz 122 lb 6 oz Last Vital Signs Temp Pulse Resp BP Pulse Ox 98.8 F 74 31 H 104/58 L 100 10/06/19 10:00 10/06/19 10:00 10/06/19 10:00 10/06/19 10:00 10/06/19 09:00 Active Medications Acetaminophen (Tylenol Oral Solution -) 650 mg GT Q4H PRN PRN Reason: FEVER Last Admin: 10/06/19 07:00 Dose: 650 mg Albuterol Sulfate (Ventolin 0.083% Nebulizer Soln -) 1 amp NEB Q4H PRN PRN Reason: SHORT OF BREATH/WHEEZING Albuterol/Ipratropium (Duoneb -) 1 amp NEB RQID [facility] Last Admin: 10/06/19 08:26 Dose: 1 amp Calcium Acetate (Phoslo -) 1,334 mg PO TIDCM [facility] Last Admin: 10/06/19 09:19 Dose: Not Given Carbidopa/Levodopa (Sinemet 25/100 -) 2 each PO TID [facility] Chlorhexidine Gluconate (Hibiclens For Decolonization -) 1 applic TP HS [facility] Last Admin: 10/05/19 21:49 Dose: 1 applic Heparin Sodium (Porcine) (Heparin -) 5,000 unit SQ TID [facility] Last Admin: 10/06/19 06:11 Dose: 5,000 unit Ceftriaxone Sodium 2 gm/ (Dextrose) 100 mls @ 200 mls/hr IVPB DAILY [facility]; Protocol Last Admin: 10/06/19 09:19 Dose: 200 mls/hr Sodium Chloride (1/2 Normal Saline) 1,000 mls @ 75 mls/hr IV ASDIR [facility] Last Admin: 10/06/19 00:02 Dose: 75 mls/hr Methylprednisolone Sodium Succinate (Solu-Medrol -) 40 mg IVPUSH DAILY [facility] Last Admin: 10/06/19 09:20 Dose: 40 mg Mirtazapine (Remeron -) 30 mg PO HS@2000 [facility] Last Admin: 10/05/19 21:49 Dose: 30 mg Pantoprazole Sodium (Protonix Iv) 40 mg IVPUSH DAILY [facility] Last Admin: 10/06/19 09:19 Dose: 40 mg Gen: intubated, poorly responsive, tachypneic Heart: RRR Lung: scattered rhonchi Abd: soft, nontender Ext: no edema Laboratory Results - last 24 hr 10/05/19 10/05/19 10/05/19 05:25 05:25 05:25 WBC RBC Hgb Hct MCV MCH MCHC RDW Plt Count MPV Absolute Neuts (auto) Neutrophils % Neutrophils % (Manual) 92.1 H Band Neutrophils % 0.0 Lymphocytes % Lymphocytes % (Manual) 0.0 L Monocytes % Monocytes % (Manual) 3 L Eosinophils % Eosinophils % (Manual) 1.0 D Basophils % Basophils % (Manual) 0.0 Myelocytes % (Man) 1 D Promyelocytes % (Man) 0 Blast Cells % (Manual) 0 Nucleated RBC % 0 Metamyelocytes 2 D Hypochromia 0 Platelet Estimate Normal Polychromasia 0 Poikilocytosis 0 Anisocytosis 0 Microcytosis 0 Macrocytosis 0 Sodium 146 H Potassium 5.2 H Chloride 109 H Carbon Dioxide 31 Anion Gap 6 L BUN 49.0 H Creatinine 0.8 Est GFR (CKD-EPI)AfAm 81.84 Est GFR (CKD-EPI)NonAf 70.61 POC Glucometer Random Glucose 148 H Calcium 8.8 Phosphorus 2.7 Magnesium 2.6 H Total Bilirubin 0.1 L AST 17 ALT 18 Alkaline Phosphatase 149 H Total Protein 5.3 L Albumin 1.6 L TSH 0.10 L Free T4 0.70 L Total T3 53.00 L Urine Color Urine Appearance Urine pH Ur Specific [place] Urine Protein Urine Glucose (UA) Urine Ketones Urine Blood Urine Nitrite Urine Bilirubin Urine Urobilinogen Ur Leukocyte Esterase Urine WBC (Auto) Urine RBC (Auto) Urine Casts (Auto) U Pathogenic Cast Auto U Epithel Cells (Auto) U Sm Round Cell (Auto) Urine Bacteria (Auto) Urine Yeast (Auto) 10/05/19 10/06/19 10/06/19 16:30 05:45 05:45 WBC 19.5 H RBC 3.46 L Hgb 9.8 L Hct 30.3 L MCV 87.8 MCH 28.5 MCHC 32.4 RDW 17.3 H Plt Count 241 MPV 9.2 Absolute Neuts (auto) 17.7 H Neutrophils % 90.8 H Neutrophils % (Manual) 83.9 H Band Neutrophils % 9.1 Lymphocytes % 4.5 L D Lymphocytes % (Manual) 3.0 L D Monocytes % 2.5 L Monocytes % (Manual) 1 L Eosinophils % 2.2 D Eosinophils % (Manual) 0.0 D Basophils % 0.0 Basophils % (Manual) 0.0 Myelocytes % (Man) 1 Promyelocytes % (Man) 1 D Blast Cells % (Manual) 0 Nucleated RBC % 0 Metamyelocytes 1 D Hypochromia 0 Platelet Estimate Normal Polychromasia 0 Poikilocytosis 0 Anisocytosis 0 Microcytosis 0 Macrocytosis 0 Sodium 144 Potassium 5.0 Chloride 108 H Carbon Dioxide 31 Anion Gap 5 L BUN 48.7 H Creatinine 0.9 Est GFR (CKD-EPI)AfAm 70.98 Est GFR (CKD-EPI)NonAf 61.24 POC Glucometer Random Glucose 94 Calcium 8.1 L Phosphorus Magnesium Total Bilirubin 0.2 AST 21 ALT 15 Alkaline Phosphatase 140 H Total Protein 4.9 L Albumin 1.5 L TSH Free T4 Total T3 Urine Color Yellow Urine Appearance Turbid Urine pH 5.0 D Ur Specific [place] 1.021 Urine Protein 1+ H Urine Glucose (UA) Negative Urine Ketones Negative Urine Blood 3+ H Urine Nitrite Negative Urine Bilirubin Negative Urine Urobilinogen 0.2 Ur Leukocyte Esterase 1+ H Urine WBC (Auto) 8 Urine RBC (Auto) 15-20 Urine Casts (Auto) 142 U Pathogenic Cast Auto 15-20 U Epithel Cells (Auto) 28.8 U Sm Round Cell (Auto) 0 Urine Bacteria (Auto) F Urine Yeast (Auto) Negative 10/06/19 05:45 WBC RBC Hgb Hct MCV MCH MCHC RDW Plt Count MPV Absolute Neuts (auto) Neutrophils % Neutrophils % (Manual) Band Neutrophils % Lymphocytes % Lymphocytes % (Manual) Monocytes % Monocytes % (Manual) Eosinophils % Eosinophils % (Manual) Basophils % Basophils % (Manual) Myelocytes % (Man) Promyelocytes % (Man) Blast Cells % (Manual) Nucleated RBC % Metamyelocytes Hypochromia Platelet Estimate Polychromasia Poikilocytosis Anisocytosis Microcytosis Macrocytosis Sodium Potassium Chloride Carbon Dioxide Anion Gap BUN Creatinine Est GFR (CKD-EPI)AfAm Est GFR (CKD-EPI)NonAf POC Glucometer 84 Random Glucose Calcium Phosphorus Magnesium Total Bilirubin AST ALT Alkaline Phosphatase Total Protein Albumin TSH Free T4 Total T3 Urine Color Urine Appearance Urine pH Ur Specific [place] Urine Protein Urine Glucose (UA) Urine Ketones Urine Blood Urine Nitrite Urine Bilirubin Urine Urobilinogen Ur Leukocyte Esterase Urine WBC (Auto) Urine RBC (Auto) Urine Casts (Auto) U Pathogenic Cast Auto U Epithel Cells (Auto) U Sm Round Cell (Auto) Urine Bacteria (Auto) Urine Yeast (Auto) ASSESSMENT AND PLAN: Acute Hypoxic and Hypercapneic Respiratory Failure Pneumonia likely Aspiration Severe Sepsis Lactic Acidosis Asthma HTN Hyperlipidemia Parkinsons Dementia h/o Breast Ca - continue antibiotics - Medrol - inhaled bronchodilators - taper FiO2, PEEP to keep SpO2 >90% - IVF - monitor urine output, creatinine - daily sedation vacations to assess mental status - spontaneous breathing trials as tolerated when mental status improved - enteral feeds - DVT/GI prophylaxis - continue discussions regarding goals of care: May need Tracheostomy - Palliative Care evaluation - Requires continued ICU monitoring Dr Moody Critical care time spent in reviewing chart, evaluating patient and formulating plan 36 min
--- NOTE | 2019-10-06 12:33 | PN ---
Physical Exam: SUBJECTIVE: Patient seen and examined Pt intubated and sedated no events overnight. OBJECTIVE: GEN: sedated HEENT:normocephalic, atraumatic CV: S1/S2, RRR, no m/r/g LUNG: rhonchi and crackles GI: soft, nondistended, +BS EXTREMITIES: 2+ distal pulses. No LE edema. No obvious deformities of all extremities. SKIN: warm, dry, normal turgor NEURO: sedated and intubated Vital Signs Period Temp Pulse Resp BP Sys/Christy Pulse Ox Last 24 Hr 98 F-102.3 F 74-110 19-31 91-131/51-70 97-100 Laboratory Results - last 24 hr 10/05/19 10/05/19 10/05/19 05:25 05:25 16:30 WBC RBC Hgb Hct MCV MCH MCHC RDW Plt Count MPV Absolute Neuts (auto) Neutrophils % Neutrophils % (Manual) Band Neutrophils % Lymphocytes % Lymphocytes % (Manual) Monocytes % Monocytes % (Manual) Eosinophils % Eosinophils % (Manual) Basophils % Basophils % (Manual) Myelocytes % (Man) Promyelocytes % (Man) Blast Cells % (Manual) Nucleated RBC % Metamyelocytes Hypochromia Platelet Estimate Polychromasia Poikilocytosis Anisocytosis Microcytosis Macrocytosis Sodium 146 H Potassium 5.2 H Chloride 109 H Carbon Dioxide 31 Anion Gap 6 L BUN 49.0 H Creatinine 0.8 Est GFR (CKD-EPI)AfAm 81.84 Est GFR (CKD-EPI)NonAf 70.61 POC Glucometer Random Glucose 148 H Calcium 8.8 Phosphorus 2.7 Magnesium 2.6 H Total Bilirubin 0.1 L AST 17 ALT 18 Alkaline Phosphatase 149 H Total Protein 5.3 L Albumin 1.6 L TSH 0.10 L Free T4 0.70 L Total T3 53.00 L Urine Color Yellow Urine Appearance Turbid Urine pH 5.0 D Ur Specific [place] 1.021 Urine Protein 1+ H Urine Glucose (UA) Negative Urine Ketones Negative Urine Blood 3+ H Urine Nitrite Negative Urine Bilirubin Negative Urine Urobilinogen 0.2 Ur Leukocyte Esterase 1+ H Urine WBC (Auto) 8 Urine RBC (Auto) 15-20 Urine Casts (Auto) 142 U Pathogenic Cast Auto 15-20 U Epithel Cells (Auto) 28.8 U Sm Round Cell (Auto) 0 Urine Bacteria (Auto) F Urine Yeast (Auto) Negative 10/06/19 10/06/19 10/06/19 05:45 05:45 05:45 WBC 19.5 H RBC 3.46 L Hgb 9.8 L Hct 30.3 L MCV 87.8 MCH 28.5 MCHC 32.4 RDW 17.3 H Plt Count 241 MPV 9.2 Absolute Neuts (auto) 17.7 H Neutrophils % 90.8 H Neutrophils % (Manual) 83.9 H Band Neutrophils % 9.1 Lymphocytes % 4.5 L D Lymphocytes % (Manual) 3.0 L D Monocytes % 2.5 L Monocytes % (Manual) 1 L Eosinophils % 2.2 D Eosinophils % (Manual) 0.0 D Basophils % 0.0 Basophils % (Manual) 0.0 Myelocytes % (Man) 1 Promyelocytes % (Man) 1 D Blast Cells % (Manual) 0 Nucleated RBC % 0 Metamyelocytes 1 D Hypochromia 0 Platelet Estimate Normal Polychromasia 0 Poikilocytosis 0 Anisocytosis 0 Microcytosis 0 Macrocytosis 0 Sodium 144 Potassium 5.0 Chloride 108 H Carbon Dioxide 31 Anion Gap 5 L BUN 48.7 H Creatinine 0.9 Est GFR (CKD-EPI)AfAm 70.98 Est GFR (CKD-EPI)NonAf 61.24 POC Glucometer 84 Random Glucose 94 Calcium 8.1 L Phosphorus Magnesium Total Bilirubin 0.2 AST 21 ALT 15 Alkaline Phosphatase 140 H Total Protein 4.9 L Albumin 1.5 L TSH Free T4 Total T3 Urine Color Urine Appearance Urine pH Ur Specific [place] Urine Protein Urine Glucose (UA) Urine Ketones Urine Blood Urine Nitrite Urine Bilirubin Urine Urobilinogen Ur Leukocyte Esterase Urine WBC (Auto) Urine RBC (Auto) Urine Casts (Auto) U Pathogenic Cast Auto U Epithel Cells (Auto) U Sm Round Cell (Auto) Urine Bacteria (Auto) Urine Yeast (Auto) Active Medications Generic Name Dose Route Start Last Admin Trade Name Freq PRN Reason Stop Dose Admin Acetaminophen 650 mg 10/05/19 14:54 10/06/19 07:00 Tylenol Oral Solution - GT 650 mg Q4H PRN Administration FEVER Albuterol Sulfate 1 amp 09/29/19 10:51 Ventolin 0.083% Nebulizer Soln - NEB Q4H PRN SHORT OF BREATH/WHEEZING Albuterol/Ipratropium 1 amp 09/29/19 12:00 10/06/19 08:26 Duoneb - NEB 1 amp RQID [facility] Administration Calcium Acetate 1,334 mg 10/04/19 12:00 10/06/19 09:19 Phoslo - PO Not Given TIDCM [facility] Carbidopa/Levodopa 2 each 10/06/19 14:00 Sinemet 25/100 - PO TID [facility] Chlorhexidine Gluconate 1 applic 09/28/19 22:00 10/05/19 21:49 Hibiclens For Decolonization - TP 1 applic HS [facility] Administration Heparin Sodium (Porcine) 5,000 unit 09/28/19 22:00 10/06/19 06:11 Heparin - SQ 5,000 unit TID [facility] Administration Ceftriaxone Sodium 2 gm/ 100 mls @ 200 mls/hr 10/02/19 11:00 10/06/19 09:19 Dextrose IVPB 200 mls/hr DAILY [facility] Administration Protocol Sodium Chloride 1,000 mls @ 75 mls/hr 10/05/19 11:30 10/06/19 00:02 1/2 Normal Saline IV 75 mls/hr ASDIR [facility] Administration Methylprednisolone Sodium Succinate 40 mg 09/29/19 11:00 10/06/19 09:20 Solu-Medrol - IVPUSH 40 mg DAILY [facility] Administration Mirtazapine 30 mg 10/04/19 20:00 10/05/19 21:49 Remeron - PO 30 mg HS@2000 [facility] Administration Pantoprazole Sodium 40 mg 10/03/19 16:15 10/06/19 09:19 Protonix Iv IVPUSH 40 mg DAILY [facility] Administration 79 y/o F extensive medical hx admitted for sepsis and acute respiratory failure NEURO: Parkinsons Dementia intubated and sedated CV: HTN, HLD -IVF PULM:acute hypoxic and hypercapneic respiratory failure,aspiration PNa, Asthma -goal O2 sat > 90% taper PEEP, FIO2 changed from 60 to 50 this a.m -empiric medrol -inhaled bronchodilators -sedated with propofol drip and fentanyl PRN -Stop sedation and have Dr. Fox do neuro consult RENAL: bubn/cr monitoring and I and O"s FENGI:Lactic acidosis ENDO: ID:Sepsis -continue antibiotics Heme/Onc: hx of breast cancer DVT PPX:Heparin SQ tid 5000 units Palliative team goals of care: Martha is health care proxy and wants all treatments continued. she was made aware that ET tube was a limited intervention per conversation with palliative care. On further discussion, health care proxy willing to attempt compassionate wean on Thursday pending arrival of patients niece LINES/TUBES/DRAINS: ASSESSMENT/PLAN: Visit type - Emergency Visit Emergency Visit: Yes ED Registration Date: 09/28/19 Care time: The patient presented to the Emergency Department on the above date and was hospitalized for further evaluation of their emergent condition. - New Patient This patient is new to me today: No - Critical Care Critical Care patient: No - Discharge Referral Referred to [facility] No ATTENDING PHYSICIAN STATEMENT I saw and evaluated the patient. I reviewed the resident's note and discussed the case with the resident. I agree with the resident's findings and plan as documented. SUBJECTIVE: OBJECTIVE: ASSESSMENT AND PLAN:
[2019-10-06] MEDS: CARBIDOPA/LEVODOPA 25/100 TABLET (FP) PO SCH ×2 (15:04→22:08)
[2019-10-06] MEDS: CHLORHEXIDINE GLUCONATE 4% CLEANSER FOR DECOLONIZATION TP SCH (22:09)
[2019-10-06] MEDS: MIRTAZAPINE 15 MG TABLET (FP) PO SCH (22:09)
[2019-10-07] MEDS: CARBIDOPA/LEVODOPA 25/100 TABLET (FP) PO SCH ×3 (05:18→21:17)
[2019-10-07] MEDS: HEPARIN NA (PORCINE) 5,000 UNITS/ML 1ML VIAL SQ SCH ×3 (05:18→21:16)
[2019-10-07 07:02] LABS: BASO % 0.1 % (0-2.0); EOS % 0.3 % (0-4.5); HEMATOCRIT 30.1 % (32.4-45.2); HEMOGLOBIN 9.5 GM/dL (10.7-15.3); LYMPH % 4.6 % (8-40); MCH 27.5 pg (25.7-33.7); MCHC 31.6 g/dl (32.0-36.0); MEAN PLT VOLUME 9.4 fl (7.5-11.1); PLATELET COUNT 254 K/MM3 (134-434); RBC 3.47 M/mm3 (3.60-5.2); RDW 17.7 % (11.6-15.6); WHITE BLOOD COUNT 16.7 K/mm3 (4.0-10.0)
[2019-10-07 07:27] LABS: ALBUMIN 1.6 g/dl (3.4-5.0); BILIRUBIN,TOTAL 0.2 mg/dL (0.2-1); BLOOD UREA NITROGEN 42.6 mg/dL (7-18); CALCIUM 8.3 mg/dL (8.5-10.1); CREATININE 0.6 mg/dL (0.55-1.3); MAGNESIUM 2.3 mg/dL (1.8-2.4); PHOSPHOROUS 3.6 mg/dL (2.5-4.9); POTASSIUM 4.6 mmol/L (3.5-5.1); TOT PROT 5.1 g/dl (6.4-8.2)
[2019-10-07] MEDS: ALBUTEROL SO4 2.5/IPRATROPIUM 0.5 INH SOL 3 ML VIAL.NEB. NEB SCH ×4 (08:39→20:27)
--- NOTE | 2019-10-07 09:11 | CONSULT ---
Consult - text type - Consultation Consultation Note: Neurology HISTORY OF PRESENT ILLNESS: Patient is not verbally communicative and intubated, and therefore unable to provide any history. Information obtained from chart,, nursing, residence in ICU. 79 year old female with PMH significant for Parkinson's disease and dementia, HTN, HLD, asthma, GERD, constipation, GI bleed, hiatal hernia, PUD, colon polyps , renal cysts, Rt breast CA (s/p right-sided mastectomy), OA, autoimmune thyroiditis and thyroid nodules. She presented to [facility]'s ER from [facility] in acute respiratory distress after an episode of aspiration while eating oatmeal. Her oxygen saturation was in the 70s despite being placed on a NRB mask, and she was subsequently intubated. She was initially placed on a ketamine drip due to low BP, but was switched to propofol once she became hemodynamically stable. Of note, she was being treated with Augmentin for an URTI. Patient required intubation and currently in the ICU at [facility]. According to nurse , there is a plan for compassionate weaning as patient would've not wanted to be intubated according to nurse. Neurology consulted as patient with continued limited mental status despite no longer being on sedation for approximately 24 hours. The patient does have her eyes open and slightly tracking examiner but no purposeful movements and does not follow commands. CT head from October 05 without acute changes, chronic thalamic infarcts noted. She is also overbreathing the vent but her mental status is likely complicated by both infectious an underlying toxic metabolic processes. Discussed with residents for continued medical optimization and treatment of sepsis. Monitor electrolytes and aggresively treat derangements. - Past Medical History PEDIATRIC ANESTHESIOLOGIST: Yes: Dementia, Parkinson's Cardiovascular: Yes: HTN, Hyperlipdemia Pulmonary: Yes: Asthma Gastrointestinal: Yes: Constipation, GERD, GI Bleed, Hiatal Hernia, Peptic Ulcer Disease, Other (colonic polyps) Renal/: Yes: Other (Bilateral renal cysts) Heme/Onc: Yes: Cancer (carcinoma in situ of right breast, status post right simple mastectomy) Psych: Yes: Anxiety, Depression Musculoskeletal: Yes: Osteoarthritis Endocrine: Yes: Other (Thyroid nodules, autoimmune thyroiditis) - Past Surgical History Past Surgical History: Yes: Mastectomy (right simple mastectomy) - Smoking History Smoking history: Former smoker Have you smoked in the past 12 months: No Aproximately how many cigarettes per day: 10 If you are a former smoker, when did you quit?: May 2013 - Alcohol/Substance Use Hx Alcohol Use: No History of Substance Use: reports: None - Social History Usual Living Arrangement: Yes: Other (Independent living facility with caregiver ) ADL: Support Services History of Recent Travel: No REVIEW OF SYSTEMS: Unable to perform review of systems since patient is intubated and sedated Active Medications Acetaminophen (Tylenol Oral Solution -) 650 mg GT Q4H PRN PRN Reason: FEVER Last Admin: 10/06/19 07:00 Dose: 650 mg Albuterol Sulfate (Ventolin 0.083% Nebulizer Soln -) 1 amp NEB Q4H PRN PRN Reason: SHORT OF BREATH/WHEEZING Albuterol/Ipratropium (Duoneb -) 1 amp NEB RQID [facility] Last Admin: 10/07/19 08:39 Dose: 1 amp Calcium Acetate (Phoslo -) 1,334 mg PO TIDCM [facility] Last Admin: 10/06/19 18:55 Dose: 1,334 mg Carbidopa/Levodopa (Sinemet 25/100 -) 2 each PO TID [facility] Last Admin: 10/07/19 05:18 Dose: 2 each Chlorhexidine Gluconate (Hibiclens For Decolonization -) 1 applic TP HS [facility] Last Admin: 10/06/19 22:09 Dose: Not Given Heparin Sodium (Porcine) (Heparin -) 5,000 unit SQ TID [facility] Last Admin: 10/07/19 05:18 Dose: 5,000 unit Ceftriaxone Sodium 2 gm/ (Dextrose) 100 mls @ 200 mls/hr IVPB DAILY [facility]; Protocol Last Admin: 10/06/19 09:19 Dose: 200 mls/hr Sodium Chloride (1/2 Normal Saline) 1,000 mls @ 75 mls/hr IV ASDIR [facility] Last Admin: 10/06/19 14:26 Dose: 75 mls/hr Methylprednisolone Sodium Succinate (Solu-Medrol -) 40 mg IVPUSH DAILY [facility] Last Admin: 10/06/19 09:20 Dose: 40 mg Mirtazapine (Remeron -) 30 mg PO HS@2000 [facility] Last Admin: 10/06/19 22:09 Dose: 30 mg Pantoprazole Sodium (Protonix Iv) 40 mg IVPUSH DAILY [facility] Last Admin: 10/06/19 09:19 Dose: 40 mg PHYSICAL EXAMINATION Vital Signs Period Temp Pulse Resp BP Sys/Christy Pulse Ox Last 24 Hr 98.4 F-98.9 F 74-92 16-31 104-159/58-97 99-100 GENERAL: intubated HEAD: Normal with no signs of trauma. EYES: PRINCESS EARS, NOSE, THROAT: Dry mucus membranes LUNGS: Diminished B/L HEART: RRR, no murmurs ABDOMEN: Soft, nontender, not distended LOWER EXTREMITIES: 2x2cm ulcer on right heel 2+ pulses, warm, no edema NEUROLOGICAL: intubated, eyes open, no purposeful movements, withdraws to painful stimulus, does not follow commands SKIN: B/L mastectomy noted, CBCD WBC 16.7 K/mm3 (4.0-10.0) H 10/07/19 05:40 RBC 3.47 M/mm3 (3.60-5.2) L 10/07/19 05:40 Hgb 9.5 GM/dL (10.7-15.3) L 10/07/19 05:40 Hct 30.1 % (32.4-45.2) L 10/07/19 05:40 MCV 87.0 fl (80-96) 10/07/19 05:40 MCHC 31.6 g/dl (32.0-36.0) L 10/07/19 05:40 RDW 17.7 % (11.6-15.6) H 10/07/19 05:40 Plt Count 254 K/MM3 (134-434) 10/07/19 05:40 MPV 9.4 fl (7.5-11.1) 10/07/19 05:40 CMP Sodium 141 mmol/L (136-145) 10/07/19 05:40 Potassium 4.6 mmol/L (3.5-5.1) 10/07/19 05:40 Chloride 105 mmol/L (98-107) 10/07/19 05:40 Carbon Dioxide 31 mmol/L (21-32) 10/07/19 05:40 Anion Gap 6 MMOL/L (8-16) L 10/07/19 05:40 BUN 42.6 mg/dL (7-18) H 10/07/19 05:40 Creatinine 0.6 mg/dL (0.55-1.3) 10/07/19 05:40 Random Glucose 118 mg/dL (74-106) H 10/07/19 05:40 Calcium 8.3 mg/dL (8.5-10.1) L 10/07/19 05:40 Total Bilirubin 0.2 mg/dL (0.2-1) 10/07/19 05:40 AST 16 U/L (15-37) 10/07/19 05:40 ALT 9 U/L (13-61) L 10/07/19 05:40 Alkaline Phosphatase 145 U/L (45-117) H 10/07/19 05:40 Total Protein 5.1 g/dl (6.4-8.2) L 10/07/19 05:40 Albumin 1.6 g/dl (3.4-5.0) L 10/07/19 05:40 ASSESSMENT/PLAN: Patient is not verbally communicative and intubated, and therefore unable to provide any history. Information obtained from chart,, nursing, residence in ICU. 79 year old female with PMH significant for Parkinson's disease and dementia, HTN, HLD, asthma, GERD, constipation, GI bleed, hiatal hernia, PUD, colon polyps , renal cysts, Rt breast CA (s/p right-sided mastectomy), OA, autoimmune thyroiditis and thyroid nodules. She presented to [facility]'s ER from [facility] in acute respiratory distress after an episode of aspiration while eating oatmeal. Her oxygen saturation was in the 70s despite being placed on a NRB mask, and she was subsequently intubated. She was initially placed on a ketamine drip due to low BP, but was switched to propofol once she became hemodynamically stable. Of note, she was being treated with Augmentin for an URTI. Patient required intubation and currently in the ICU at [facility]. According to nurse , there is a plan for compassionate weaning as patient would've not wanted to be intubated according to nurse. Neurology consulted as patient with continued limited mental status despite no longer being on sedation for approximately 24 hours. The patient does have her eyes open and slightly tracking examiner but no purposeful movements and does not follow commands. She is also overbreathing the vent but her mental status is likely complicated by both infectious an underlying toxic metabolic processes. Discussed with residents for continued medical optimization and treatment of sepsis. Monitor electrolytes and aggresively treat derangements. Extubation as per ICU. Can continue parkinson's medications. CT head without acute changes. Continue to monitor mental status for improvement as underlying factors improve. IV Abx as per ID. Maintain adequate hydration. Discussed with ICU residents.
[2019-10-07] MEDS: CALCIUM ACETATE 667 MG CAPSULE (FP) PO SCH ×3 (09:44→16:58)
[2019-10-07] MEDS: PANTOPRAZOLE SODIUM 40 MG VIAL IVPUSH SCH (09:46)
[2019-10-07] MEDS: methylPREDNISolone NA SUCC 40 MG/1 ML VIAL IVPUSH SCH (09:46)
[2019-10-07] MEDS: CEFTRIAXONE 2 GM in DEXTROSE 5%-WATER 100 ML IVPB SCH (09:48)
--- NOTE | 2019-10-07 10:20 | PN ---
Progress Note (short form) - Note Progress Note: remains lethargic remains intubated off sedation Vital Signs Period Temp Pulse Resp BP Sys/Christy Pulse Ox Last 24 Hr 98.4 F-99.0 F 74-92 16-28 137-159/72-97 99-100 cor-rrr lungs decreased bs at bases abd soft,nt ext no edema CBC, BMP 10/07/19 05:40 10/07/19 05:40 Microbiology 10/05/19 16:30 Urine - Urine Kramer Urine Culture - Final NO GROWTH OBTAINED 10/05/19 11:15 Blood - Peripheral Venous Blood Culture - Preliminary NO GROWTH OBTAINED AFTER 24 HOURS, INCUBATION TO CONTINUE FOR 4 DAYS. 10/05/19 11:44 Blood - Peripheral Venous Blood Culture - Preliminary NO GROWTH OBTAINED AFTER 24 HOURS, INCUBATION TO CONTINUE FOR 4 DAYS. 10/05/19 16:30 Urine - Urine Kramer Legionella Antigen - Final 10/05/19 16:30 Urine - Urine Kramer Streptococcus pneumoniae Antigen (M - Final 09/28/19 12:40 Blood - Peripheral Venous Blood Culture - Final NO GROWTH AFTER 5 DAYS INCUBATION 09/28/19 12:48 Blood - Peripheral Venous Blood Culture - Final NO GROWTH AFTER 5 DAYS INCUBATION 09/28/19 23:00 Sputum - Endotrachea Suction/Ventilator Gram Stain - Final 09/28/19 23:00 Sputum - Endotrachea Suction/Ventilator Sputum Culture - Final Klebsiella Pneumoniae Yeast Like Organism a/p resp failure presumed aspiration pneumonia day #9 antibiotics, day #6 ceftriaxone-zosyn resistant klebsielly leukocytosis improving neurology to see for continued lethargy off sedation, head ct unrevealing
--- NOTE | 2019-10-07 10:36 | PN ---
Teaching Attending Note Name of Resident: Cam Bennett ATTENDING PHYSICIAN STATEMENT I saw and evaluated the patient. I reviewed the resident's note and discussed the case with the resident. I agree with the resident's findings and plan as documented. SUBJECTIVE: SUBJECTIVE: Patient seen and examined in the ICU. Remains intubated, poorly responsive but on low dose propofol. AC Mode of vent, 60% FiO2. No pressors. Did not tolerate wean yesterday. OBJECTIVE: Intake & Output 10/03/19 10/04/19 10/05/19 10/06/19 23:59 23:59 23:59 23:59 Intake Total 1344 2187 2356 1390 Output Total 1700 1450 2050 800 Balance -356 737 306 590 Weight 127 lb 9 oz 121 lb 2 oz 122 lb 6 oz Last Vital Signs Temp Pulse Resp BP Pulse Ox 98.8 F 74 31 H 104/58 L 100 10/06/19 10:00 10/06/19 10:00 10/06/19 10:00 10/06/19 10:00 10/06/19 09:00 Active Medications Acetaminophen (Tylenol Oral Solution -) 650 mg GT Q4H PRN PRN Reason: FEVER Last Admin: 10/06/19 07:00 Dose: 650 mg Albuterol Sulfate (Ventolin 0.083% Nebulizer Soln -) 1 amp NEB Q4H PRN PRN Reason: SHORT OF BREATH/WHEEZING Albuterol/Ipratropium (Duoneb -) 1 amp NEB RQID [facility] Last Admin: 10/06/19 08:26 Dose: 1 amp Calcium Acetate (Phoslo -) 1,334 mg PO TIDCM [facility] Last Admin: 10/06/19 09:19 Dose: Not Given Carbidopa/Levodopa (Sinemet 25/100 -) 2 each PO TID [facility] Chlorhexidine Gluconate (Hibiclens For Decolonization -) 1 applic TP HS [facility] Last Admin: 10/05/19 21:49 Dose: 1 applic Heparin Sodium (Porcine) (Heparin -) 5,000 unit SQ TID [facility] Last Admin: 10/06/19 06:11 Dose: 5,000 unit Ceftriaxone Sodium 2 gm/ (Dextrose) 100 mls @ 200 mls/hr IVPB DAILY [facility]; Protocol Last Admin: 10/06/19 09:19 Dose: 200 mls/hr Sodium Chloride (1/2 Normal Saline) 1,000 mls @ 75 mls/hr IV ASDIR [facility] Last Admin: 10/06/19 00:02 Dose: 75 mls/hr Methylprednisolone Sodium Succinate (Solu-Medrol -) 40 mg IVPUSH DAILY [facility] Last Admin: 10/06/19 09:20 Dose: 40 mg Mirtazapine (Remeron -) 30 mg PO HS@2000 [facility] Last Admin: 10/05/19 21:49 Dose: 30 mg Pantoprazole Sodium (Protonix Iv) 40 mg IVPUSH DAILY [facility] Last Admin: 10/06/19 09:19 Dose: 40 mg Gen: intubated, poorly responsive, tachypneic Heart: RRR Lung: scattered rhonchi Abd: soft, nontender Ext: no edema Laboratory Results - last 24 hr 10/05/19 10/05/19 10/05/19 05:25 05:25 05:25 WBC RBC Hgb Hct MCV MCH MCHC RDW Plt Count MPV Absolute Neuts (auto) Neutrophils % Neutrophils % (Manual) 92.1 H Band Neutrophils % 0.0 Lymphocytes % Lymphocytes % (Manual) 0.0 L Monocytes % Monocytes % (Manual) 3 L Eosinophils % Eosinophils % (Manual) 1.0 D Basophils % Basophils % (Manual) 0.0 Myelocytes % (Man) 1 D Promyelocytes % (Man) 0 Blast Cells % (Manual) 0 Nucleated RBC % 0 Metamyelocytes 2 D Hypochromia 0 Platelet Estimate Normal Polychromasia 0 Poikilocytosis 0 Anisocytosis 0 Microcytosis 0 Macrocytosis 0 Sodium 146 H Potassium 5.2 H Chloride 109 H Carbon Dioxide 31 Anion Gap 6 L BUN 49.0 H Creatinine 0.8 Est GFR (CKD-EPI)AfAm 81.84 Est GFR (CKD-EPI)NonAf 70.61 POC Glucometer Random Glucose 148 H Calcium 8.8 Phosphorus 2.7 Magnesium 2.6 H Total Bilirubin 0.1 L AST 17 ALT 18 Alkaline Phosphatase 149 H Total Protein 5.3 L Albumin 1.6 L TSH 0.10 L Free T4 0.70 L Total T3 53.00 L Urine Color Urine Appearance Urine pH Ur Specific [place] Urine Protein Urine Glucose (UA) Urine Ketones Urine Blood Urine Nitrite Urine Bilirubin Urine Urobilinogen Ur Leukocyte Esterase Urine WBC (Auto) Urine RBC (Auto) Urine Casts (Auto) U Pathogenic Cast Auto U Epithel Cells (Auto) U Sm Round Cell (Auto) Urine Bacteria (Auto) Urine Yeast (Auto) 10/05/19 10/06/19 10/06/19 16:30 05:45 05:45 WBC 19.5 H RBC 3.46 L Hgb 9.8 L Hct 30.3 L MCV 87.8 MCH 28.5 MCHC 32.4 RDW 17.3 H Plt Count 241 MPV 9.2 Absolute Neuts (auto) 17.7 H Neutrophils % 90.8 H Neutrophils % (Manual) 83.9 H Band Neutrophils % 9.1 Lymphocytes % 4.5 L D Lymphocytes % (Manual) 3.0 L D Monocytes % 2.5 L Monocytes % (Manual) 1 L Eosinophils % 2.2 D Eosinophils % (Manual) 0.0 D Basophils % 0.0 Basophils % (Manual) 0.0 Myelocytes % (Man) 1 Promyelocytes % (Man) 1 D Blast Cells % (Manual) 0 Nucleated RBC % 0 Metamyelocytes 1 D Hypochromia 0 Platelet Estimate Normal Polychromasia 0 Poikilocytosis 0 Anisocytosis 0 Microcytosis 0 Macrocytosis 0 Sodium 144 Potassium 5.0 Chloride 108 H Carbon Dioxide 31 Anion Gap 5 L BUN 48.7 H Creatinine 0.9 Est GFR (CKD-EPI)AfAm 70.98 Est GFR (CKD-EPI)NonAf 61.24 POC Glucometer Random Glucose 94 Calcium 8.1 L Phosphorus Magnesium Total Bilirubin 0.2 AST 21 ALT 15 Alkaline Phosphatase 140 H Total Protein 4.9 L Albumin 1.5 L TSH Free T4 Total T3 Urine Color Yellow Urine Appearance Turbid Urine pH 5.0 D Ur Specific [place] 1.021 Urine Protein 1+ H Urine Glucose (UA) Negative Urine Ketones Negative Urine Blood 3+ H Urine Nitrite Negative Urine Bilirubin Negative Urine Urobilinogen 0.2 Ur Leukocyte Esterase 1+ H Urine WBC (Auto) 8 Urine RBC (Auto) 15-20 Urine Casts (Auto) 142 U Pathogenic Cast Auto 15-20 U Epithel Cells (Auto) 28.8 U Sm Round Cell (Auto) 0 Urine Bacteria (Auto) F Urine Yeast (Auto) Negative 10/06/19 05:45 WBC RBC Hgb Hct MCV MCH MCHC RDW Plt Count MPV Absolute Neuts (auto) Neutrophils % Neutrophils % (Manual) Band Neutrophils % Lymphocytes % Lymphocytes % (Manual) Monocytes % Monocytes % (Manual) Eosinophils % Eosinophils % (Manual) Basophils % Basophils % (Manual) Myelocytes % (Man) Promyelocytes % (Man) Blast Cells % (Manual) Nucleated RBC % Metamyelocytes Hypochromia Platelet Estimate Polychromasia Poikilocytosis Anisocytosis Microcytosis Macrocytosis Sodium Potassium Chloride Carbon Dioxide Anion Gap BUN Creatinine Est GFR (CKD-EPI)AfAm Est GFR (CKD-EPI)NonAf POC Glucometer 84 Random Glucose Calcium Phosphorus Magnesium Total Bilirubin AST ALT Alkaline Phosphatase Total Protein Albumin TSH Free T4 Total T3 Urine Color Urine Appearance Urine pH Ur Specific [place] Urine Protein Urine Glucose (UA) Urine Ketones Urine Blood Urine Nitrite Urine Bilirubin Urine Urobilinogen Ur Leukocyte Esterase Urine WBC (Auto) Urine RBC (Auto) Urine Casts (Auto) U Pathogenic Cast Auto U Epithel Cells (Auto) U Sm Round Cell (Auto) Urine Bacteria (Auto) Urine Yeast (Auto) ASSESSMENT AND PLAN: Acute Hypoxic and Hypercapneic Respiratory Failure Pneumonia likely Aspiration Severe Sepsis Lactic Acidosis Asthma HTN Hyperlipidemia Parkinsons Dementia h/o Breast Ca - continue antibiotics - Medrol - inhaled bronchodilators - taper FiO2, PEEP to keep SpO2 >90% - IVF - monitor urine output, creatinine - daily sedation vacations to assess mental status - spontaneous breathing trials as tolerated when mental status improved - enteral feeds - DVT/GI prophylaxis - continue discussions regarding goals of care: Plan may be for Compassionate extubation - Palliative Care evaluation - Requires continued ICU monitoring Dr Moody Critical care time spent in reviewing chart, evaluating patient and formulating plan 36 min
--- NOTE | 2019-10-07 11:47 | PN ---
Physical Exam: SUBJECTIVE: Patient seen and examined in the morning. No acute events overnight. No events on cardiac monitoring. Patient is not currently sedated but is still unable to respond to examiner. OBJECTIVE: Vital Signs Period Temp Pulse Resp BP Sys/Christy Pulse Ox Last 24 Hr 98.4 F-99.0 F 74-92 16-28 137-159/72-97 99-100 GENERAL: Patient is not sedated. Patient is alert awake but not alert or oriented. Unable to follow command. HEAD: Normal with no signs of trauma. EYES: Faint PERRLA ENT: ET tube in place. NECK: Trachea midline, full range of motion, supple. LUNGS: Ventilator sounds present. HEART: Regular rate and rhythm, S1, S2, without murmurs rubs or gallops. ABDOMEN: Soft, nontender, nondistended, normoactive bowel sounds. EXTREMITIES: 2+ pulses, warm, well-perfused, no edema. SKIN: Warm, dry, normal turgor, no rashes or lesions noted Laboratory Results - last 24 hr 10/07/19 10/07/19 05:40 05:40 WBC 16.7 H RBC 3.47 L Hgb 9.5 L Hct 30.1 L MCV 87.0 MCH 27.5 MCHC 31.6 L RDW 17.7 H Plt Count 254 MPV 9.4 Absolute Neuts (auto) 15.4 H Neutrophils % 92.0 H Lymphocytes % 4.6 L Monocytes % 3.0 L Eosinophils % 0.3 D Basophils % 0.1 D Nucleated RBC % 0 Sodium 141 Potassium 4.6 Chloride 105 Carbon Dioxide 31 Anion Gap 6 L BUN 42.6 H Creatinine 0.6 Est GFR (CKD-EPI)AfAm 101.18 Est GFR (CKD-EPI)NonAf 87.30 Random Glucose 118 H Calcium 8.3 L Phosphorus 3.6 Magnesium 2.3 Total Bilirubin 0.2 AST 16 ALT 9 L Alkaline Phosphatase 145 H Total Protein 5.1 L Albumin 1.6 L Active Medications Generic Name Dose Route Start Last Admin Trade Name Freq PRN Reason Stop Dose Admin Acetaminophen 650 mg 10/05/19 14:54 10/06/19 07:00 Tylenol Oral Solution - GT 650 mg Q4H PRN Administration FEVER Albuterol Sulfate 1 amp 09/29/19 10:51 Ventolin 0.083% Nebulizer Soln - NEB Q4H PRN SHORT OF BREATH/WHEEZING Albuterol/Ipratropium 1 amp 09/29/19 12:00 10/07/19 08:39 Duoneb - NEB 1 amp RQID [facility] Administration Calcium Acetate 1,334 mg 10/04/19 12:00 10/07/19 09:44 Phoslo - PO 1,334 mg TIDCM [facility] Administration Carbidopa/Levodopa 2 each 10/06/19 14:00 10/07/19 05:18 Sinemet 25/100 - PO 2 each TID [facility] Administration Chlorhexidine Gluconate 1 applic 09/28/19 22:00 10/06/19 22:09 Hibiclens For Decolonization - TP Not Given HS [facility] Heparin Sodium (Porcine) 5,000 unit 09/28/19 22:00 10/07/19 05:18 Heparin - SQ 5,000 unit TID [facility] Administration Ceftriaxone Sodium 2 gm/ 100 mls @ 200 mls/hr 10/02/19 11:00 10/07/19 09:48 Dextrose IVPB 200 mls/hr DAILY [facility] Administration Protocol Sodium Chloride 1,000 mls @ 75 mls/hr 10/05/19 11:30 10/06/19 14:26 1/2 Normal Saline IV 75 mls/hr ASDIR [facility] Administration Methylprednisolone Sodium Succinate 40 mg 09/29/19 11:00 10/07/19 09:46 Solu-Medrol - IVPUSH 40 mg DAILY [facility] Administration Mirtazapine 30 mg 10/04/19 20:00 10/06/19 22:09 Remeron - PO 30 mg HS@2000 [facility] Administration Pantoprazole Sodium 40 mg 10/03/19 16:15 10/07/19 09:46 Protonix Iv IVPUSH 40 mg DAILY [facility] Administration ASSESSMENT/PLAN: 79 F with PMH of parkinson's disease, dementia, HTN, HLD, Breast cancer s/p right mastectomy, autoimmune thyroiditis, depression, anxiety, admitted with acute respiratory failure with hypercapnia, hypoxia, acute aspiration pneumonia and acute sepsis. Neuro -Intubated without sedation. -Hx of parkinson and dementia -Continuing Sinamet and Mirtazapine -Neurology consulted- Dr. Fox believes there is some tracking of examiner but no purposeful movements and does not follow commands. She is also overbreathing the vent but her mental status is likely complicated by both infectious an underlying toxic metabolic processes. Recommends continued antibiotics. Appreciate recs CV -Patient is HTN while not on sedatives. Pulm -CTA shows no PE. Shows bilateral lower lobe and right upper lobe infiltrate. -CXR- bilateral infiltrates seen. Right upper lobe consolidation visible -Attempted to wean from ventilator. Sedation was stopped for >30 hours. -Medrol 40 mg IV Daily -Albuterol Q4H PRN -Duonebs QID PRN -Pulmonology consulted, appreciate recs ID -Aspiration pneumonia with acute hypoxic respiratory failure -Lactic acidosis resolved -Afebrile -Cultures resulted Klebsiella sensitive to Ceftriaxone -Ceftriaxone 2 gram daily -ID consulted, appreciate recs Renal -Renal cysts -Kramer in, Net balance of 2025 -Creatinine 0.8 today, was 1.3 on admission Heme/Onc -Hx of RT breast cancer s/p mastectomy -Hgb of 11.6 today -PT INR 13.5 DVT PPX: Heparin 5000 unit SQ TID GI PPX: Protonix IV 40 Qdaily F: No fluids. E: Monitor CMP N: Tube feed perative Dispo: Patient will have compassionate wean of ventilator tomorrow as per family. Palliative care and I have discussed with family. Lines: None Visit type - Emergency Visit Emergency Visit: Yes ED Registration Date: 09/28/19 Care time: The patient presented to the Emergency Department on the above date and was hospitalized for further evaluation of their emergent condition. - New Patient This patient is new to me today: No - Critical Care Critical Care patient: Yes Total Critical Care Time (in minutes): 45 Critical Care Statement: The care of this patient involved high complexity decision making to prevent further life threatening deterioration of the patient 's condition and/or to evaluate & treat vital organ system(s) failure or risk of failure. ATTENDING PHYSICIAN STATEMENT I saw and evaluated the patient. I reviewed the resident's note and discussed the case with the resident. I agree with the resident's findings and plan as documented. SUBJECTIVE: OBJECTIVE: ASSESSMENT AND PLAN:
[2019-10-07 12:31] LABS: ANISOCYTOSIS 2+; PLATELET ESTIMATE NORMAL
[2019-10-07 14:47] VITALS: BMI 19.4
--- NOTE | 2019-10-07 14:53 | PN ---
Progress Note, Physician Chief Complaint: Patient seen and examined at the bedside in ICU, intubated and off sedation. History of Present Illness: This 79 yr old w/f with history of Parkinson's disease, dementia, depression, anxiety, hypertension, GERD, and autoimmune thyroiditis admitted via ER at [facility] on 09/28/19 with acute respiratory failure with hypoxia and hypercapnia, acute aspiration pneumonia, acute sepsis, and acute neutrophilic leukocytosis. - Current Medication List Current Medications: Active Medications Acetaminophen (Tylenol Oral Solution -) 650 mg GT Q4H PRN PRN Reason: FEVER Last Admin: 10/06/19 07:00 Dose: 650 mg Albuterol Sulfate (Ventolin 0.083% Nebulizer Soln -) 1 amp NEB Q4H PRN PRN Reason: SHORT OF BREATH/WHEEZING Albuterol/Ipratropium (Duoneb -) 1 amp NEB RQID [facility] Last Admin: 10/07/19 11:55 Dose: 1 amp Calcium Acetate (Phoslo -) 1,334 mg PO TIDCM [facility] Last Admin: 10/07/19 09:44 Dose: 1,334 mg Carbidopa/Levodopa (Sinemet 25/100 -) 2 each PO TID [facility] Last Admin: 10/07/19 05:18 Dose: 2 each Chlorhexidine Gluconate (Hibiclens For Decolonization -) 1 applic TP HS [facility] Last Admin: 10/06/19 22:09 Dose: Not Given Heparin Sodium (Porcine) (Heparin -) 5,000 unit SQ TID [facility] Last Admin: 10/07/19 05:18 Dose: 5,000 unit Ceftriaxone Sodium 2 gm/ (Dextrose) 100 mls @ 200 mls/hr IVPB DAILY [facility]; Protocol Last Admin: 10/07/19 09:48 Dose: 200 mls/hr Sodium Chloride (1/2 Normal Saline) 1,000 mls @ 75 mls/hr IV ASDIR [facility] Last Admin: 10/06/19 14:26 Dose: 75 mls/hr Methylprednisolone Sodium Succinate (Solu-Medrol -) 40 mg IVPUSH DAILY [facility] Last Admin: 10/07/19 09:46 Dose: 40 mg Mirtazapine (Remeron -) 30 mg PO HS@2000 [facility] Last Admin: 10/06/19 22:09 Dose: 30 mg Pantoprazole Sodium (Protonix Iv) 40 mg IVPUSH DAILY [facility] Last Admin: 10/07/19 09:46 Dose: 40 mg - Objective Vital Signs: Vital Signs Temperature 98.4 F 10/07/19 14:00 Pulse Rate 89 10/07/19 14:00 Respiratory Rate 22 H 10/07/19 14:00 Blood Pressure 173/82 H 10/07/19 14:00 O2 Sat by Pulse Oximetry (%) 99 10/07/19 09:00 Constitutional: Yes: Cachectic Eyes: Yes: Conjunctiva Clear, EOM Intact HENT: Yes: Atraumatic, Normocephalic Neck: Yes: Supple, Trachea Midline Cardiovascular: Yes: Regular Rate and Rhythm Respiratory: Yes: CTA Bilaterally, Mechanically Ventilated, Rhonchi Gastrointestinal: Yes: Normal Bowel Sounds, Soft ...Rectal Exam: Yes: Deferred Genitourinary: Yes: Incontinence Breast(s): Yes: Other (status post right simple mastectomy) Musculoskeletal: Yes: Muscle Weakness (?critical care polyneuropathy) Extremities: Yes: Cool Edema: No Peripheral Pulses: Left Radial: 3+, Right Radial: 3+, Left Doralis Pedis: 2+, Right Dorsalis Pedis: 2+, Left Femoral: 3+, Right Femoral: 3+ Integumentary: Yes: Pressure Ulcer Neurological: Yes: Unresponsive ...Motor Strength: LUE (generalized muscle weakness of all extremities) Labs: CBC, BMP 10/07/19 05:40 10/07/19 05:40 INR, PTT INR 1.21 (0.82-1.09) 09/28/19 12:45 - ....Imaging Other: Report Reviewed (Lab data reviewed conult notes read and appreciated.) Problem List - Problems (1) Acute aspiration pneumonia Assessment/Plan: IV Ceftriaxone and Solumedrol. Code(s): J69.0 - PNEUMONITIS DUE TO INHALATION OF FOOD AND VOMIT (2) Acute respiratory failure with hypoxia Assessment/Plan: Bronchodilators prn, IV Ceftriaxone and Solumedrol. Code(s): J96.01 - ACUTE RESPIRATORY FAILURE WITH HYPOXIA (3) Sepsis Assessment/Plan: IV Ceftriaxone and Solumedrol. Code(s): A41.9 - SEPSIS, UNSPECIFIED ORGANISM Assessment/Plan Plan: Acute respiratory failure with hypoxia and hypercapnia, acute aspiration pneumonia, acute sepsis, acute critical care polyneuropathy; IV Ceftriaxone, IV Solumedrol, enteral nutrition, discussed clinical condtion of the patient with the family and Martha, scheduled for compassionate wean off respirator tomorrow.
[2019-10-07] MEDS ORDERED: MORPHINE SULFATE 2 MG/ML VIAL IVPUSH PRN (15:24)
[2019-10-07] MEDS: SODIUM CHLORIDE 0.45% 1,000 ML IV SCH (16:58)
[2019-10-07] MEDS: MIRTAZAPINE 15 MG TABLET (FP) PO SCH (21:16)
[2019-10-07] MEDS: CHLORHEXIDINE GLUCONATE 4% CLEANSER FOR DECOLONIZATION TP SCH (21:17)
[2019-10-08] MEDS: HEPARIN NA (PORCINE) 5,000 UNITS/ML 1ML VIAL SQ SCH ×2 (05:02→14:01)
[2019-10-08] MEDS: CARBIDOPA/LEVODOPA 25/100 TABLET (FP) PO SCH ×2 (05:02→14:20)
[2019-10-08] MEDS: SODIUM CHLORIDE 0.45% 1,000 ML IV SCH ×2 (06:25→11:56)
[2019-10-08 06:54] LABS: BASO % 0.1 % (0-2.0); HEMATOCRIT 35.1 % (32.4-45.2); HEMOGLOBIN 11.2 GM/dL (10.7-15.3); LYMPH % 5.2 % (8-40); MCH 27.6 pg (25.7-33.7); MEAN CELL VOLUME 86.3 fl (80-96); MEAN PLT VOLUME 9.1 fl (7.5-11.1); NEUT % 88.7 % (42.8-82.8); PLATELET COUNT 274 K/MM3 (134-434); RBC 4.07 M/mm3 (3.60-5.2); RDW 17.1 % (11.6-15.6); WHITE BLOOD COUNT 14.6 K/mm3 (4.0-10.0)
[2019-10-08 07:12] LABS: ALBUMIN 1.8 g/dl (3.4-5.0); BILIRUBIN,TOTAL 0.3 mg/dL (0.2-1); BLOOD UREA NITROGEN 35.6 mg/dL (7-18); CALCIUM 8.7 mg/dL (8.5-10.1); CREATININE 0.6 mg/dL (0.55-1.3); MAGNESIUM 2.1 mg/dL (1.8-2.4); PHOSPHOROUS 2.7 mg/dL (2.5-4.9); POTASSIUM 4.4 mmol/L (3.5-5.1); TOT PROT 5.5 g/dl (6.4-8.2)
[2019-10-08] MEDS: ALBUTEROL SO4 2.5/IPRATROPIUM 0.5 INH SOL 3 ML VIAL.NEB. NEB SCH ×3 (08:38→16:28)
[2019-10-08] MEDS ORDERED: DEXTROSE 5%-WATER 100 ML IVPB ONE (08:51)
[2019-10-08] MEDS: CALCIUM ACETATE 667 MG CAPSULE (FP) PO SCH ×3 (09:00→16:31)
[2019-10-08] MEDS: PANTOPRAZOLE SODIUM 40 MG VIAL IVPUSH SCH (09:02)
[2019-10-08] MEDS: CEFTRIAXONE 2 GM in DEXTROSE 5%-WATER 100 ML IVPB SCH (09:03)
[2019-10-08] MEDS: methylPREDNISolone NA SUCC 40 MG/1 ML VIAL IVPUSH SCH (09:04)
[2019-10-08 10:00] LABS: ANISOCYTOSIS 1+; MACROCYTOSIS 0; PLATELET ESTIMATE NORMAL
--- NOTE | 2019-10-08 11:53 | PN ---
Progress Note, Physician History of Present Illness: NOT RESPONSIVE ON VENTILATOR AFEBRILE LEUKOCYTOSIS IMPROVED - Current Medication List Current Medications: Active Medications Acetaminophen (Tylenol Oral Solution -) 650 mg GT Q4H PRN PRN Reason: FEVER Last Admin: 10/06/19 07:00 Dose: 650 mg Albuterol Sulfate (Ventolin 0.083% Nebulizer Soln -) 1 amp NEB Q4H PRN PRN Reason: SHORT OF BREATH/WHEEZING Albuterol/Ipratropium (Duoneb -) 1 amp NEB RQID [facility] Last Admin: 10/08/19 08:38 Dose: 1 amp Calcium Acetate (Phoslo -) 1,334 mg PO TIDCM [facility] Last Admin: 10/08/19 09:00 Dose: 1,334 mg Carbidopa/Levodopa (Sinemet 25/100 -) 2 each PO TID [facility] Last Admin: 10/08/19 05:02 Dose: 2 each Chlorhexidine Gluconate (Hibiclens For Decolonization -) 1 applic TP HS [facility] Last Admin: 10/07/19 21:17 Dose: Not Given Heparin Sodium (Porcine) (Heparin -) 5,000 unit SQ TID [facility] Last Admin: 10/08/19 05:02 Dose: 5,000 unit Ceftriaxone Sodium 2 gm/ (Dextrose) 100 mls @ 200 mls/hr IVPB DAILY [facility]; Protocol Last Admin: 10/08/19 09:03 Dose: 200 mls/hr Sodium Chloride (1/2 Normal Saline) 1,000 mls @ 75 mls/hr IV ASDIR [facility] Last Admin: 10/08/19 06:25 Dose: 75 mls/hr Methylprednisolone Sodium Succinate (Solu-Medrol -) 40 mg IVPUSH DAILY [facility] Last Admin: 10/08/19 09:04 Dose: 40 mg Mirtazapine (Remeron -) 30 mg PO HS@2000 [facility] Last Admin: 10/07/19 21:16 Dose: 30 mg Morphine Sulfate (Morphine Sulfate) 2 mg IVPUSH Q2H PRN PRN Reason: PAIN LEVEL 6-10 Pantoprazole Sodium (Protonix Iv) 40 mg IVPUSH DAILY [facility] Last Admin: 10/08/19 09:02 Dose: 40 mg - Objective Vital Signs: Vital Signs Temperature 98.6 F 10/08/19 06:00 Pulse Rate 91 H 10/08/19 08:00 Respiratory Rate 25 H 10/08/19 08:47 Blood Pressure 131/82 10/08/19 08:00 O2 Sat by Pulse Oximetry (%) 98 10/08/19 00:55 Constitutional: Yes: No Distress Eyes: Yes: Conjunctiva Clear Cardiovascular: Yes: Regular Rate and Rhythm, S1, S2 Respiratory: Yes: Mechanically Ventilated Gastrointestinal: Yes: Normal Bowel Sounds, Soft. No: Tenderness Labs: CBC, BMP 10/08/19 05:50 10/08/19 05:50 INR, PTT INR 1.21 (0.82-1.09) 09/28/19 12:45 Assessment/Plan PROBABLE ASPIRATION PNEUMONIA RESP FAILURE LEUKOCYTOSIS IMPROVED LACTIC ACIDOSIS AZOTEMIA RESOLVED CONTINUE CEFTRIAXONE VENTILATORY SUPPORT
--- NOTE | 2019-10-08 11:56 | PN ---
Teaching Attending Note Name of Resident: Sarah Murillo ATTENDING PHYSICIAN STATEMENT I saw and evaluated the patient. I reviewed the resident's note and discussed the case with the resident. I agree with the resident's findings and plan as documented. SUBJECTIVE: Pt seen and examined in the ICU. Remains intubated, unresponsive. Niece at bedside. Plan for compassionate extubation today. OBJECTIVE: Vital Signs Period Temp Pulse Resp BP Sys/Christy Pulse Ox Last 24 Hr 98.0 F-98.6 F 84-105 15-25 131-173/78-85 98-100 Intake & Output 10/05/19 10/06/19 10/07/19 10/08/19 23:59 23:59 23:59 23:59 Intake Total 2356 2725 3405 1764 Output Total 2050 2150 1800 1600 Balance 952 657 0345 164 Weight 54.941 kg 55.508 kg 56.336 kg 55.508 kg Gen: intubated, unresponsive Heart: RRR Lung: decreased breath sounds at the bases Abd: soft, nontender Ext: no edema CBC, BMP 10/08/19 05:50 10/08/19 05:50 Active Medications Acetaminophen (Tylenol Oral Solution -) 650 mg GT Q4H PRN PRN Reason: FEVER Last Admin: 10/06/19 07:00 Dose: 650 mg Albuterol Sulfate (Ventolin 0.083% Nebulizer Soln -) 1 amp NEB Q4H PRN PRN Reason: SHORT OF BREATH/WHEEZING Albuterol/Ipratropium (Duoneb -) 1 amp NEB RQID [facility] Last Admin: 10/08/19 08:38 Dose: 1 amp Calcium Acetate (Phoslo -) 1,334 mg PO TIDCM [facility] Last Admin: 10/08/19 09:00 Dose: 1,334 mg Carbidopa/Levodopa (Sinemet 25/100 -) 2 each PO TID [facility] Last Admin: 10/08/19 05:02 Dose: 2 each Chlorhexidine Gluconate (Hibiclens For Decolonization -) 1 applic TP HS [facility] Last Admin: 10/07/19 21:17 Dose: Not Given Heparin Sodium (Porcine) (Heparin -) 5,000 unit SQ TID [facility] Last Admin: 10/08/19 05:02 Dose: 5,000 unit Ceftriaxone Sodium 2 gm/ (Dextrose) 100 mls @ 200 mls/hr IVPB DAILY [facility]; Protocol Last Admin: 10/08/19 09:03 Dose: 200 mls/hr Sodium Chloride (1/2 Normal Saline) 1,000 mls @ 75 mls/hr IV ASDIR [facility] Last Admin: 10/08/19 06:25 Dose: 75 mls/hr Methylprednisolone Sodium Succinate (Solu-Medrol -) 40 mg IVPUSH DAILY [facility] Last Admin: 10/08/19 09:04 Dose: 40 mg Mirtazapine (Remeron -) 30 mg PO HS@1999 [facility] Last Admin: 10/07/19 21:16 Dose: 30 mg Morphine Sulfate (Morphine Sulfate) 2 mg IVPUSH Q2H PRN PRN Reason: PAIN LEVEL 6-10 Pantoprazole Sodium (Protonix Iv) 40 mg IVPUSH DAILY [facility] Last Admin: 10/08/19 09:02 Dose: 40 mg ASSESSMENT AND PLAN: Acute Hypoxic and Hypercapneic Respiratory Failure Pneumonia likely Aspiration Severe Sepsis Lactic Acidosis Asthma HTN Hyperlipidemia Parkinsons Dementia h/o Breast Ca - continue antibiotics - empiric medrol - inhaled bronchodilators - IVF - monitor urine output, creatinine - continue supportive measures - plan for compassionate extubation today - DVT/GI prophylaxis - continue ICU monitoring - discussed with family at bedside and answered all questions critical care time spent in reviewing chart, evaluating patient and formulating plan 35 min
[2019-10-08] MEDS ORDERED: morphine SULFATE 4 MG/ML VIAL IVPUSH ONE (13:02)
[2019-10-08] MEDS ORDERED: LORazepam 2 MG/ML SDV VIAL IVPUSH PRN (13:03)
[2019-10-08] MEDS ORDERED: SCOPOLAMINE HYDROBROMIDE 1 PATCH PATCH.TD72 TD SCH (13:15)
[2019-10-08] MEDS: MORPHINE SULFATE/0.9% NACL/PF 100 MG/100 ML BAG IVPB SCH (13:33)
--- NOTE | 2019-10-08 15:33 | PN ---
Physical Exam: SUBJECTIVE: Patient to be compassionately weaned today. OBJECTIVE: Vital Signs Period Temp Pulse Resp BP Sys/Christy Pulse Ox Last 24 Hr 98.0 F-98.8 F 84-105 15-25 131-169/8-85 98-100 GENERAL: The patient is intubated LUNGS: Breath sounds equal, clear to auscultation bilaterally, no wheezes, HEART: Regular rate and rhythm, S1, S2 without murmur, rub or gallop. ABDOMEN: Soft, nontender, nondistended, normoactive bowel sounds, no guarding, no rebound, no hepatosplenomegaly, no masses. EXTREMITIES: 2+ pulses, warm, well-perfused, no edema. SKIN: Warm, dry, normal turgor, no rashes or lesions noted CBC, BMP 10/08/19 05:50 10/08/19 05:50 Active Medications Acetaminophen (Tylenol Oral Solution -) 650 mg GT Q4H PRN PRN Reason: FEVER Last Admin: 10/06/19 07:00 Dose: 650 mg Albuterol Sulfate (Ventolin 0.083% Nebulizer Soln -) 1 amp NEB Q4H PRN PRN Reason: SHORT OF BREATH/WHEEZING Albuterol/Ipratropium (Duoneb -) 1 amp NEB RQID [facility] Last Admin: 10/08/19 13:18 Dose: 1 amp Calcium Acetate (Phoslo -) 1,334 mg PO TIDCM [facility] Last Admin: 10/08/19 11:55 Dose: 1,334 mg Carbidopa/Levodopa (Sinemet 25/100 -) 2 each PO TID [facility] Last Admin: 10/08/19 14:20 Dose: Not Given Chlorhexidine Gluconate (Hibiclens For Decolonization -) 1 applic TP HS [facility] Last Admin: 10/07/19 21:17 Dose: Not Given Heparin Sodium (Porcine) (Heparin -) 5,000 unit SQ TID [facility] Last Admin: 10/08/19 14:01 Dose: Not Given Ceftriaxone Sodium 2 gm/ (Dextrose) 100 mls @ 200 mls/hr IVPB DAILY [facility]; Protocol Last Admin: 10/08/19 09:03 Dose: 200 mls/hr Sodium Chloride (1/2 Normal Saline) 1,000 mls @ 75 mls/hr IV ASDIR [facility] Last Admin: 10/08/19 11:56 Dose: 75 mls/hr Morphine Sulfate (Morphine 100mg/100ml-0.9% Nacl) 100 mg in 100 mls @ 1 mls/hr IVPB TITR [facility]; Protocol Last Infusion: 10/08/19 14:00 Dose: 2 mg/hr, 2 mls/hr Lorazepam (Ativan Injection -) 1 mg IVPUSH Q3H PRN PRN Reason: ANXIETY Last Admin: 10/08/19 13:55 Dose: 1 mg Methylprednisolone Sodium Succinate (Solu-Medrol -) 40 mg IVPUSH DAILY [facility] Last Admin: 10/08/19 09:04 Dose: 40 mg Mirtazapine (Remeron -) 30 mg PO HS@2000 [facility] Last Admin: 10/07/19 21:16 Dose: 30 mg Morphine Sulfate (Morphine Sulfate) 2 mg IVPUSH Q2H PRN PRN Reason: PAIN LEVEL 6-10 Pantoprazole Sodium (Protonix Iv) 40 mg IVPUSH DAILY [facility] Last Admin: 10/08/19 09:02 Dose: 40 mg Scopolamine HBr (Transderm-Scop -) 1 patch TD Q72H [facility] Last Admin: 10/08/19 13:35 Dose: 1 patch ASSESSMENT/PLAN: 79 F with PMH of parkinson's disease, dementia, HTN, HLD, Breast cancer s/p right mastectomy, autoimmune thyroiditis, depression, anxiety, admitted with acute respiratory failure with hypercapnia, hypoxia, acute aspiration pneumonia and acute sepsis. Patient for compassionate weaning today, extubation completed morphine 4 IV given once, began morphine drip scopalamine patch ativan 1 q2 if needed for agitation BL PNA, lactic acidosis resolved - continue inhaled bronchodilators as needed renal cysts - monitor urine output, creatinine DVT/GI ppx Dispo: patient for compassionate wean, treat symptomatically Visit type - Emergency Visit Emergency Visit: Yes ED Registration Date: 09/28/19 Care time: The patient presented to the Emergency Department on the above date and was hospitalized for further evaluation of their emergent condition. - New Patient This patient is new to me today: Yes Date on this admission: 10/08/19 - Critical Care Critical Care patient: Yes Total Critical Care Time (in minutes): 40 Critical Care Statement: The care of this patient involved high complexity decision making to prevent further life threatening deterioration of the patient 's condition and/or to evaluate & treat vital organ system(s) failure or risk of failure. ATTENDING PHYSICIAN STATEMENT I saw and evaluated the patient. I reviewed the resident's note and discussed the case with the resident. I agree with the resident's findings and plan as documented. SUBJECTIVE: OBJECTIVE: ASSESSMENT AND PLAN:
[2019-10-08] MEDS: LORazepam 2 MG/ML SDV VIAL IVPUSH PRN (20:55)
[2019-10-09] MEDS: MORPHINE SULFATE/0.9% NACL/PF 100 MG/100 ML BAG IVPB SCH ×2 (06:29→22:12)
--- NOTE | 2019-10-09 11:03 | PN ---
Teaching Attending Note Name of Resident: Annel Jimenez ATTENDING PHYSICIAN STATEMENT I saw and evaluated the patient. I reviewed the resident's note and discussed the case with the resident. I agree with the resident's findings and plan as documented. SUBJECTIVE: Pt seen and examined in the ICU. Extubated on morphine gtt. Niece at bedside, requests to remove nasal cannula. OBJECTIVE: Vital Signs Period Temp Pulse Resp BP Sys/Christy Pulse Ox Last 24 Hr 98.6 F-98.7 F 84-121 08-09 90-148/8-82 80 Intake & Output 10/06/19 10/07/19 10/08/19 10/09/19 23:59 23:59 23:59 23:59 Intake Total 2725 3405 1764 80 Output Total 2150 1800 1600 1400 Balance 575 1605 164 -1320 Weight 55.508 kg 56.336 kg 55.508 kg 56.7 kg Gen: mildly tachypneic Heart: RRR Lung: scattered rhonchi Abd: soft, nontender Ext: no edema CBC, BMP 10/08/19 05:50 10/08/19 05:50 Active Medications Morphine Sulfate (Morphine 100mg/100ml-0.9% Nacl) 100 mg in 100 mls @ 1 mls/hr IVPB TITR [facility]; Protocol Last Admin: 10/09/19 06:29 Dose: 6 mg/hr, 6 mls/hr Lorazepam (Ativan Injection -) 2 mg IVPUSH Q2H PRN PRN Reason: ANXIETY Last Admin: 10/08/19 20:55 Dose: 2 mg Morphine Sulfate (Morphine Sulfate) 2 mg IVPUSH Q2H PRN PRN Reason: PAIN LEVEL 6-10 Scopolamine HBr (Transderm-Scop -) 1 patch TD Q72H [facility] Last Admin: 10/08/19 13:35 Dose: 1 patch ASSESSMENT AND PLAN: Acute Hypoxic and Hypercapneic Respiratory Failure Pneumonia likely Aspiration Severe Sepsis Lactic Acidosis Asthma HTN Hyperlipidemia Parkinsons Dementia h/o Breast Ca - continue supportive measures - titrate morphine gtt to comfort - discussed with family at bedside and answered all questions - can monitor on floor with private room
--- NOTE | 2019-10-09 11:32 | PN ---
Progress Note, Physician Chief Complaint: Patient seen and examined at the bedside in ICU. Extubated. On morphine drip and Ativan for sedation. History of Present Illness: This 79 yr old w/f with history of Parkinson's disease, dementia, hypertension, depression, cancer of the right breast, status post right simple mastectomy admitted via ER at [facility] with acute respiratory failure with hpoxia and hypercapnia, acute aspiration pneumonia, and acute sepsis. - Current Medication List Current Medications: Active Medications Morphine Sulfate (Morphine 100mg/100ml-0.9% Nacl) 100 mg in 100 mls @ 1 mls/hr IVPB TITR [facility]; Protocol Last Admin: 10/09/19 06:29 Dose: 6 mg/hr, 6 mls/hr Lorazepam (Ativan Injection -) 2 mg IVPUSH Q2H PRN PRN Reason: ANXIETY Last Admin: 10/08/19 20:55 Dose: 2 mg Morphine Sulfate (Morphine Sulfate) 2 mg IVPUSH Q2H PRN PRN Reason: PAIN LEVEL 6-10 Scopolamine HBr (Transderm-Scop -) 1 patch TD Q72H [facility] Last Admin: 10/08/19 13:35 Dose: 1 patch - Objective Vital Signs: Vital Signs Temperature 98.6 F 10/09/19 10:00 Pulse Rate 121 H 10/09/19 10:00 Respiratory Rate 13 10/09/19 10:00 Blood Pressure 97/48 L 10/09/19 10:00 O2 Sat by Pulse Oximetry (%) 80 L 10/08/19 21:00 Constitutional: Yes: Cachectic HENT: Yes: Atraumatic, Normocephalic, Other (oral mucus membranes dry) Neck: Yes: Supple, Trachea Midline Cardiovascular: Yes: Regular Rate and Rhythm, Tachycardia Respiratory: Yes: CTA Bilaterally, Rhonchi Gastrointestinal: Yes: Normal Bowel Sounds, Soft ...Rectal Exam: Yes: Deferred Genitourinary: Yes: Incontinence Breast(s): Yes: Other (status post right simple mastectomy) Edema: No Peripheral Pulses: Left Radial: 2+, Right Radial: 2+, Left Doralis Pedis: 1+, Right Dorsalis Pedis: 1+, Left Femoral: 2+, Right Femoral: 2+ Neurological: Yes: Unresponsive Labs: CBC, BMP 10/08/19 05:50 10/08/19 05:50 INR, PTT INR 1.21 (0.82-1.09) 09/28/19 12:45 Problem List - Problems (1) Acute aspiration pneumonia Assessment/Plan: Ceftriaxone and Solumedrol discontinued, extubated, oxygen saturation on room air 80%. Code(s): J69.0 - PNEUMONITIS DUE TO INHALATION OF FOOD AND VOMIT (2) Acute respiratory failure with hypoxia Assessment/Plan: Extubated, off oxygen and bronchodilators, oxygen saturation on room air 80%, condition critical. Code(s): J96.01 - ACUTE RESPIRATORY FAILURE WITH HYPOXIA (3) Sepsis Assessment/Plan: Extubated, off Ceftriaxone and Solumedrol, no enteral nutritional support, clinical condition critical. Code(s): A41.9 - SEPSIS, UNSPECIFIED ORGANISM Assessment/Plan Plan: acute respiratory failure with hypoxia and hypercapnia, acute aspiration pneumonia, acute sepsis; IV morphine drip and Ativan for sedation, clinical condition critical.
--- NOTE | 2019-10-09 12:12 | PN ---
Physical Exam: SUBJECTIVE: Patient seen and examined OBJECTIVE: Vital Signs Period Temp Pulse Resp BP Sys/Christy Pulse Ox Last 24 Hr 98.6 F-98.7 F 84-121 10-22 90-148/8-55 80 GENERAL: NAD HEAD: Normal with no signs of trauma. EYES: sluggish pupillary response ENT: Ears normal, nares patent, oropharynx clear without exudates, moist mucous membranes. NECK: Trachea midline, LUNGS:rhonchi HEART: tachycardic ABDOMEN: Soft, nondistended, normoactive bowel sounds, EXTREMITIES: no edema. NEUROLOGICAL: on morphine drip and ativan PSYCH:on morphine drip. SKIN: Warm, dry, normal turgor, no rashes or lesions noted Active Medications Generic Name Dose Route Start Last Admin Trade Name Freq PRN Reason Stop Dose Admin Morphine Sulfate 100 mg in 100 mls @ 1 mls/hr 10/08/19 13:15 10/09/19 06:29 Morphine 100mg/100ml-0.9% Nacl IVPB 6 mg/hr TITR [facility] 6 mls/hr Administration Protocol 1 MG/HR Lorazepam 2 mg 10/08/19 19:49 10/08/19 20:55 Ativan Injection - IVPUSH 2 mg Q2H PRN Administration ANXIETY Morphine Sulfate 2 mg 10/07/19 15:24 Morphine Sulfate IVPUSH Q2H PRN PAIN LEVEL 6-10 Scopolamine HBr 1 patch 10/08/19 13:15 10/08/19 13:35 Transderm-Scop - TD 1 patch Q72H [facility] Administration ASSESSMENT/PLAN: 76 y/o F hx of parkinson's disease, dementia, HTN, HLD< Breast CA autioimmune thyroiditis, depression ,anxiety admitted for acute respiratory failure and sepis compassionate wean yesterday. -currently extubated on morphine drip -niece requested removing nasal cannula at bedside this a.m scopalamine patch -ativan q2 if needed inhaled bronchodilators prn can be transferred to floor. Visit type - Emergency Visit Emergency Visit: Yes ED Registration Date: 09/28/19 Care time: The patient presented to the Emergency Department on the above date and was hospitalized for further evaluation of their emergent condition. - New Patient This patient is new to me today: No - Critical Care Critical Care patient: No - Discharge Referral Referred to [facility] No ATTENDING PHYSICIAN STATEMENT I saw and evaluated the patient. I reviewed the resident's note and discussed the case with the resident. I agree with the resident's findings and plan as documented. SUBJECTIVE: OBJECTIVE: ASSESSMENT AND PLAN:
[2019-10-09 18:22] VITALS: BP 68/56
[2019-10-10 03:14] VITALS: PULSE 102
[2019-10-10] MEDS: LORazepam 2 MG/ML SDV VIAL IVPUSH PRN (03:20)
[2019-10-10 04:54] VITALS: TEMP 100.4
--- NOTE | 2019-10-10 08:30 | DS ---
Physical Examination Vital Signs: Vital Signs Temperature 100.4 F H 10/10/19 03:14 Pulse Rate 102 H 10/10/19 03:14 Respiratory Rate 25 H 10/10/19 03:14 Blood Pressure 68/56 L 10/09/19 18:00 O2 Sat by Pulse Oximetry (%) 80 L 10/08/19 21:00 Labs: CBC, BMP 10/08/19 05:50 10/08/19 05:50 Discharge Summary Problems reviewed: Yes Reason For Visit: RESP FAILURE Plan of Treatment: Acute respiratory failure with hypoxia and hypercapnia. Acute aspiration pneumonia. Acute sepsis. Acute neutrophilic leukocytosis. Paient at 4:01am on 10/10/2019. Completion of a certificate. Total time spent over 30 minutes. Condition: - Instructions Referrals: Isidro Howard MD [Primary Care Provider] - Disposition: - Home Medications Comprehensive Discharge Medication List: Ambulatory Orders
== END 2019-10-10 04:01 | disposition expired | DRG 870 ==
LOC: FER 12:10 → JICU 16:06
PROVIDERS: ADMIT Internal Medicine; ATTEND Internal Medicine
PROC: 5A1955Z Respiratory Ventilation, Greater than 96 Consecutive Hours (ICD-10-PCS; principal; 2019-09-28)
PROC: 0BH17EZ Insertion of Endotracheal Airway into Trachea, Via Natural or Artificial Opening (ICD-10-PCS; 2019-09-28)
DX: A41.9 Sepsis, unspecified organism (principal); J96.01 Acute respiratory failure with hypoxia; J69.0 Pneumonitis due to inhalation of food and vomit; J96.02 Acute respiratory failure with hypercapnia; E87.2 Acidosis; R64 Cachexia; Z68.1 Body mass index [BMI] 19.9 or less, adult; G20 Parkinson's disease; R65.20 Severe sepsis without septic shock; F02.80 Dementia in other diseases classified elsewhere, unspecified severity, without behavioral disturbance, psychotic disturbance, mood disturbance, and anxiety; I10 Essential (primary) hypertension; E78.5 Hyperlipidemia, unspecified; K21.9 Gastro-esophageal reflux disease without esophagitis; J45.909 Unspecified asthma, uncomplicated; K44.9 Diaphragmatic hernia without obstruction or gangrene; K27.9 Peptic ulcer, site unspecified, unspecified as acute or chronic, without hemorrhage or perforation; Z85.3 Personal history of malignant neoplasm of breast; F32.9 Major depressive disorder, single episode, unspecified; F41.9 Anxiety disorder, unspecified; M81.0 Age-related osteoporosis without current pathological fracture; N28.1 Cyst of kidney, acquired; E87.6 Hypokalemia; E83.51 Hypocalcemia; D69.6 Thrombocytopenia, unspecified; E83.42 Hypomagnesemia; E83.39 Other disorders of phosphorus metabolism; D64.9 Anemia, unspecified; E77.8 Other disorders of glycoprotein metabolism; Z87.891 Personal history of nicotine dependence
CPT/HCPCS: 11042; 15275; 36415; 36600; 70450-TC; 71045-TC-FY; 71275-TC; 80048; 80053; 81003; 82728; 82803; 82962; 83036; 83605; 83735; 84100; 84439; 84443; 84480; 85025; 85027; 85610; 85730; 87040; 87070; 87077; 87086; 87186; 87205; 87804; 87899; 90670; 93005; 93971; 94002; 94640; 99285-25; G0008; G0009; J0131; J1644; J7030; Q2036; Q4196; Q9967